=== PATIENT | female | born 1950 | race Caucasian/White ===

== ENCOUNTER 2023-01-03 12:58 | Inpatient (IN) | payer BC, OTHER ==
[2023-01-03 13:34] LABS: Absolute Lymphocytes (CBC) 0.4 K/uL (0.7-4.9); Hematocrit 48.2 % (36.0-45.0); Lymphocytes % 1.8 % (15.3-44.8); MCV 96.6 fL (80-100); MPV 9.3 fL (7.6-11.3); RBC Red Blood Cell Count 4.99 M/uL (3.86-4.86)
--- NOTE | 2023-01-03 13:36 | RAD REPORT ---
EXAM DESCRIPTION: RAD - Chest Single View - 01/03/2023 1:27 pm CLINICAL HISTORY: CHEST PAIN COMPARISON: No comparisons FINDINGS: Lines: None. Lungs: Increased lung markings in the lung bases, left greater than right. No consolidation. Pleural: No significant pleural effusions or pneumothorax. Cardiac: The heart size is within normal limits. Mediastinum: Within normal limits. Bones: No acute fractures. Other: None IMPRESSION: Coarsened interstitial lung markings in the bases could reflect mild infection or inflam mation.
[2023-01-03 13:37] LABS: Protime INR 1.08
[2023-01-03] MEDS ORDERED: MORPHINE 4 MG/ML SYR ONE ×2 (13:37→16:58)
[2023-01-03] MEDS ORDERED: ONDANSETRON 4 MG/2 ML VIAL ONE ×2 (13:37→16:58)
[2023-01-03 13:52] LABS: Albumin 4.3 g/dL (3.4-5.0); Bilirubin Direct 0.2 mg/dL (0-0.2); Bilirubin Total 0.6 mg/dL (0.2-1.0); Magnesium 1.8 mg/dL (1.6-2.4); Potassium 3.6 mmol/L (3.5-5.1); Protein, Total 7.8 g/dL (6.4-8.2); Troponin High Sensitivity 3.9 pg/mL (<58.9)
[2023-01-03 14:21] LABS: SARS-COV-2 RT PCR NEGATIVE (NEGATIVE)
[2023-01-03 14:22] LABS: Blood Morphology Comment NOTED (NOT SEEN); Platelet Estimate ADEQ; Stomatocytes 1+
--- NOTE | 2023-01-03 14:30 | RAD REPORT ---
EXAM DESCRIPTION: CTAngio Aorta For Dissection - 01/03/2023 2:17 pm CLINICAL HISTORY: chest pain, thoracic and lumbar back pain COMPARISON: No comparisons TECHNIQUE: CTA of the chest, abdomen, and pelvis was performed. MIPs of the aorta were created. All CT scans are performed using dose optimization technique as appropriate and may include automated exposure control or mA/KV adjustment according to patient size. FINDINGS: Thorax: Chest Wall: No abnormal mass Lungs: Emphysema. Nodularity and bronchiectasis present in the lingula. Pleura: No effusions or pneumothorax. Benita/Mediastinum: No lymphadenopathy. Aorta/Pulmonary Arteries: Unremarkable Heart: Normal size. Abdomen/Pelvis: Liver: No acute abnormality or suspicious lesions. Biliary: No biliary ductal dilatation. Stomach: No significant focal abnormality. Duodenum: No significant focal abnormality. Pancreas: No significant abnormality. Spleen: No significant abnormality. Adrenal: No suspicious lesions. Kidney/ureter: No hydronephrosis. No renal calculi. Retroperitoneum: No retroperitoneal adenopathy. Vascular: No aneurysm. Atherosclerosis. Bowel: No significant focal abnormality. Peritoneum: No ascites or free air. Bladder: Grossly unremarkable. Reproductive: No adnexal masses. Bones: No acute fracture. Multilevel degenerative changes are present in the spine. Other: n/a IMPRESSION: No aortic aneurysm, aortic dissection, or pulmonary embolus. Bronchiectasis in nodularity in the lingula likely secondary to a chronic or indolent infectious proc ess such as mycobacterial avium complex. Background of emphysema.
[2023-01-03] MEDS ORDERED: METHYLPREDNISOLONE 125 MG INJ ONE (16:00)
[2023-01-03] MEDS ORDERED: AZITHROMYCIN 250 MG TAB ONE (16:00)
[2023-01-03] MEDS ORDERED: LEVALBUTEROL 1.25 MG/3 ML NEB ONE (16:01)
--- NOTE | 2023-01-03 16:13 | ER ---
Nurse's Notes [facility] Name: Carmenza Saldivar Age: 72 yrs Sex: Female : 1950 Arrival Date: 01/03/2023 Time: 13:04 Bed 14 Private MD: Diagnosis: COPD/ Chronic obstructive pulmonary disease with (acute) exacerbation;Pneumonia;Chest Pain Presentation: 01/03 13:04 Chief complaint: Patient states: woke up with chest pain 1 hour ago. Coronavirus ss screen: Client denies travel out of the [place] in the last 14 days. Ebola Screen: Patient denies exposure to infectious person. Patient denies travel to an Ebola-affected area in the 21 days before illness onset. Initial Sepsis Screen: Does the patient meet any 2 criteria? No. Patient's initial sepsis screen is negative. Does the patient have a suspected source of infection? No. Patient's initial sepsis screen is negative. Risk Assessment: Do you want to hurt yourself or someone else? Patient reports no desire to harm self or others. Onset of symptoms was January 03, 2023. 13:04 Method Of Arrival: Wheelchair ss 13:04 Acuity: ROBIN 2 ss Triage Assessment: 19:35 General: Appears in no apparent distress. Behavior is appropriate for age. Pain: Denies ke1 pain. Respiratory: Respiratory effort is even, unlabored, on breathing tx at this time. Historical: - Allergies: 13:42 No Known Allergies; db - PMHx: 13:43 scoliosis; sciatica; db - Immunization history:: Adult Immunizations unknown. - Social history:: Smoking status: Patient denies any tobacco usage or history of. Patient uses street drugs, marijuana. Screenin:25 [facility] ED Fall Risk Assessment (Adult) History of falling in the last 3 months, db including since admission No falls in past 3 months (0 pts) Confusion or Disorientation No (0 pts) Intoxicated or Sedated No (0 pts) Impaired Gait No (0 pts) Mobility Assist Device Used No (0 pt) Altered Elimination No (0 pt) Score/Fall Risk Level 0 - 2 = Low Risk Oriented to surroundings, Maintained a safe environment. Abuse screen: Denies threats or abuse. Denies injuries from another. Nutritional screening: No deficits noted. Tuberculosis screening: No symptoms or risk factors identified. Assessment: 13:24 Reassessment: Patient and/or family updated on plan of care and expected duration. Pain db level reassessed. chest pain and SOB started prior to arrival. Pain: Complains of pain in chest Pain does not radiate. Pain began suddenly. Cardiovascular: No deficits noted. Capillary refill < 3 seconds. Respiratory: Airway is patent Respiratory effort is even, labored, Respiratory pattern is regular, symmetrical, Parent/caregiver reports the patient having shortness of breath. 14:09 Reassessment: patient in CT. db 15:00 Reassessment: Patient and/or family updated on plan of care and expected duration. Pain db level reassessed. Patient is alert, oriented x 3, equal unlabored respirations, skin warm/dry/pink. 16:00 Reassessment: Patient and/or family updated on plan of care and expected duration. Pain db level reassessed. Patient is alert, oriented x 3, equal unlabored respirations, skin warm/dry/pink. 17:04 Reassessment: Patient appears in no apparent distress at this time. Patient and/or db family updated on plan of care and expected duration. Pain level reassessed. Patient is alert, oriented x 3, equal unlabored respirations, skin warm/dry/pink. 18:05 Reassessment: Patient appears in no apparent distress at this time. Patient and/or db family updated on plan of care and expected duration. Pain level reassessed. Patient is alert, oriented x 3, equal unlabored respirations, skin warm/dry/pink. Patient states feeling better. Vital Signs: 13:04 BP 132 / 80; Pulse 114; Resp 24; Temp 99.3(O); Pulse Ox 87% on R/A; Weight 49.9 kg; ss Height 5 ft. 3 in. (160.02 cm); Pain 10/10; 15:00 BP 133 / 81; Pulse 102; Resp 18; Pulse Ox 93% on 2 lpm NC; db 16:00 BP 105 / 66; Pulse 94; Resp 18; Pulse Ox 88% on 2 lpm NC; db 16:30 BP 118 / 60; Pulse 101; Resp 16; Pulse Ox 88% on 2 lpm NC; db 19:32 BP 104 / 67; Pulse 88; Resp 20; Temp 99(O); Pulse Ox 93% on 2 lpm NC; ke1 13:04 Body Mass Index 19.49 (49.90 kg, 160.02 cm) ss 13:04 Pt reports that her RA O2 saturation is typically i"in the 80's" ED Course: 13:04 Patient arrived in ED. dov 13:11 Colten Orantes PA is PHCP. jmm 13:11 Nicolas Tyson MD is Attending Physician. jmm 13:15 Inserted saline lock: 20 gauge in right antecubital area, using aseptic technique. db Blood collected. 13:23 Nicole Sanchez, RN is Primary Nurse. db 13:23 Triage completed. ss 13:29 XRAY Chest (1 view) In Process Unspecified. EDMS 13:44 Oxygen administration via nasal cannula \\T\\ 2L/min. db 13:44 Patient has correct armband on for positive identification. Placed in gown. Bed in low db position. Call light in reach. Side rails up X 1. Client placed on continuous cardiac and pulse oximetry monitoring. NIBP monitoring applied. Warm blanket given. 14:19 CT Aorta for Dissection In Process Unspecified. EDMS 15:00 First set of blood cultures drawn by me. db 15:15 Second set of blood cultures drawn by me. db 16:12 Mehnaz Natarajan MD is Hospitalizing Provider. [facility] 19:12 Primary Nurse role handed off by Nicole Sanchez, ANAI mw2 19:15 Nicole Sanchez, RN is Primary Nurse. db 19:15 Report given to Nicolle. db 19:32 Leland Joy RN is Primary Nurse. ke1 20:22 No provider procedures requiring assistance completed. Patient admitted, IV remains in ke1 place. Administered Medications: 13:38 Drug: morphine 4 mg Route: IVP; Infused Over: 4 mins; Site: right antecubital; db 15:13 Follow up: Response: No adverse reaction db 13:38 Drug: Zofran (Ondansetron) 4 mg Route: IVP; Site: right antecubital; db 15:13 Follow up: Response: No adverse reaction db 16:06 Drug: SOLU-Medrol (methylPrednisoLONE) 125 mg Route: IVP; Site: right antecubital; db 17:04 Follow up: Response: No adverse reaction db 16:06 Drug: Zithromax (azithromycin) 500 mg Route: PO; db 17:04 Follow up: Response: No adverse reaction db 16:06 Drug: Xopenex (levalbuterol) (3) 1.25 mg Route: Inhalation; db 17:04 Follow up: Response: No adverse reaction db 17:03 Drug: Zofran (Ondansetron) 4 mg Route: IVP; Site: right antecubital; db 18:47 Follow up: Response: No adverse reaction db 17:03 Drug: morphine 4 mg Route: IVP; Infused Over: 4 mins; Site: right antecubital; db 18:47 Follow up: Response: No adverse reaction db 17:04 Drug: Aspirin Chewable Tablet 324 mg Route: PO; db 18:47 Follow up: Response: No adverse reaction db Medication: 20:23 VIS not applicable for this client. ke1 Outcome: 16:12 Decision to Hospitalize by Provider. vivien 20:22 Admitted to Med/surg accompanied by nurse. ke1 20:22 Condition: good 20:22 Instructed on the need for admit. 20:23 Patient left the ED. ke1 Signatures: Dispatcher [employer] EDMS Nicolas Tyson MD MD cha Mickail, Joel, PA PA Sierra Sanchez, Consuelo Kessler RN 2 Leland Joy RN RN ke1 Nicole Sanchez, ANAI RN db
--- NOTE | 2023-01-03 16:13 | EDPHYS ---
Physician Documentation [facility] Name: Carmenza Saldivar Age: 72 yrs Sex: Female : 1950 Arrival Date: 01/03/2023 Time: 13:04 Bed 14 Private MD: DANIEL Physician Nicolas Tyson HPI: 01/03 13:11 This 72 yrs old Female presents to ER via Wheelchair with complaints of Chest Pain. m 13:11 The patient or guardian reports chest pain that is located primarily in the substernal [facility] area. Onset: gradually, this morning. The pain radiates to Associated signs and symptoms: Pertinent positives: shortness of breath. The chest pain is described as aching. Duration: The patient or guardian reports multiple episodes, that are intermittent, that wax and wane. Modifying factors: The symptoms are alleviated by nothing. the symptoms are aggravated by nothing. The patient has not experienced similar symptoms in the past. Historical: - Allergies: 13:42 No Known Allergies; db - PMHx: 13:43 scoliosis; sciatica; db - Immunization history:: Adult Immunizations unknown. - Social history:: Smoking status: Patient denies any tobacco usage or history of. Patient uses street drugs, marijuana. ROS: 13:11 Constitutional: Negative for fever, chills, and weight loss, Respiratory: Negative for jmm shortness of breath, cough, wheezing, and pleuritic chest pain. 13:11 Cardiovascular: Positive for chest pain. 13:11 Respiratory: Positive for shortness of breath. 13:11 All other systems are negative. Exam: 13:11 Constitutional: This is a well developed, well nourished patient who is awake, alert, jmm and in no acute distress. Head/Face: atraumatic. Eyes: EOMI, no conjunctival erythema appreciated ENT: Moist Mucus Membranes Neck: Trachea midline, Supple Chest/axilla: Normal chest wall appearance and motion. Cardiovascular: Regular rate and rhythm. No edema appreciated Respiratory: Normal respirations, no respiratory distress appreciated Abdomen/GI: Non distended Back: Normal ROM Skin: General appearance color normal MS/ Extremity: Moves all extremities, no obvious deformities appreciated, no edema noted to the lower extremities Neuro: Awake and alert Psych: Behavior is normal, Mood is normal, Patient is cooperative and pleasant Vital Signs: 13:04 BP 132 / 80; Pulse 114; Resp 24; Temp 99.3(O); Pulse Ox 87% on R/A; Weight 49.9 kg; ss Height 5 ft. 3 in. (160.02 cm); Pain 10/10; 15:00 BP 133 / 81; Pulse 102; Resp 18; Pulse Ox 93% on 2 lpm NC; db 16:00 BP 105 / 66; Pulse 94; Resp 18; Pulse Ox 88% on 2 lpm NC; db 16:30 BP 118 / 60; Pulse 101; Resp 16; Pulse Ox 88% on 2 lpm NC; db 19:32 BP 104 / 67; Pulse 88; Resp 20; Temp 99(O); Pulse Ox 93% on 2 lpm NC; ke1 13:04 Body Mass Index 19.49 (49.90 kg, 160.02 cm) ss 13:04 Pt reports that her RA O2 saturation is typically i"in the 80's" ss MDM: 13:15 Patient medically screened. [facility] 16:10 The patient was given aspirin in the Emergency Department. m 16:11 Data reviewed: vital signs, nurses notes. Management of patient was discussed with the jmm following: Hospitalist: Dr. Natarajan. I considered the following discharge prescriptions or medication management in the emergency department Medications were administered in the Emergency Department. See MAR. Independent interpretation of the following test(s) in the Emergency Department X-Ray: My interpretation is no pneumothorax. Counseling: I had a detailed discussion with the patient and/or guardian regarding: the historical points, exam findings, and any diagnostic results supporting the discharge/admit diagnosis, lab results, radiology results, the need for further work-up and treatment in the hospital. ED course: Pain relieved in the ED. . 01/03 13:11 Order name: Basic Metabolic Panel; Complete Time: 13:59 [facility] 01/03 13:11 Order name: CBC with Diff; Complete Time: 14:27 [facility] 01/03 13:11 Order name: LFT's; Complete Time: 13:59 [facility] 01/03 13:11 Order name: Magnesium; Complete Time: 13:59 [facility] 01/03 13:11 Order name: NT PRO-BNP; Complete Time: 13:59 [facility] 01/03 13:11 Order name: PT-INR; Complete Time: 13:37 [facility] 01/03 13:11 Order name: Troponin HS; Complete Time: 13:59 [facility] 01/03 13:21 Order name: COVID-19/FLU A+B; Complete Time: 14:27 [facility] 01/03 13:45 Order name: Manual Differential; Complete Time: 14:27 [facility] 01/03 14:07 Order name: Lactate w/ 2H reflex if indic.; Complete Time: 15:50 [facility] 01/03 14:07 Order name: Blood Culture Adult (2) [facility] 01/03 17:10 Order name: CBC with Automated Diff [facility] 01/03 17:10 Order name: CBC with Automated Diff [facility] 01/03 13:11 Order name: XRAY Chest (1 view); Complete Time: 13:37 [facility] 01/03 13:15 Order name: CT Aorta for Dissection; Complete Time: 14:32 [facility] 01/03 17:10 Order name: Comprehensive Metabolic Panel [facility] 01/03 17:10 Order name: Comprehensive Metabolic Panel [facility] 01/03 17:10 Order name: Protime (+INR) [facility] 01/03 17:10 Order name: Protime (+INR) [facility] 01/03 17:10 Order name: PTT, Activated Partial Thromb [facility] 01/03 17:10 Order name: PTT, Activated Partial Thromb [facility] 01/03 17:10 Order name: Troponin High Sensitivity [facility] 01/03 17:10 Order name: Troponin High Sensitivity [facility] 01/03 13:11 Order name: EKG; Complete Time: 13:12 [facility] 01/03 13:11 Order name: Cardiac monitoring; Complete Time: 13:28 [facility] 01/03 13:11 Order name: EKG - Nurse/Tech; Complete Time: 13:28 [facility] 01/03 13:11 Order name: IV Saline Lock; Complete Time: 13:28 [facility] 01/03 13:11 Order name: Labs collected and sent; Complete Time: 13:28 [facility] 01/03 13:11 Order name: O2 Per Protocol; Complete Time: 13:28 [facility] 01/03 13:11 Order name: O2 Sat Monitoring; Complete Time: 13:28 [facility] 01/03 17:10 Order name: CONS Physician Consult [facility] 01/03 17:10 Order name: Heart Healthy EDLA Administered Medications: 13:38 Drug: morphine 4 mg Route: IVP; Infused Over: 4 mins; Site: right antecubital; db 15:13 Follow up: Response: No adverse reaction db 13:38 Drug: Zofran (Ondansetron) 4 mg Route: IVP; Site: right antecubital; db 15:13 Follow up: Response: No adverse reaction db 16:06 Drug: SOLU-Medrol (methylPrednisoLONE) 125 mg Route: IVP; Site: right antecubital; db 17:04 Follow up: Response: No adverse reaction db 16:06 Drug: Zithromax (azithromycin) 500 mg Route: PO; db 17:04 Follow up: Response: No adverse reaction db 16:06 Drug: Xopenex (levalbuterol) (3) 1.25 mg Route: Inhalation; db 17:04 Follow up: Response: No adverse reaction db 17:03 Drug: Zofran (Ondansetron) 4 mg Route: IVP; Site: right antecubital; db 18:47 Follow up: Response: No adverse reaction db 17:03 Drug: morphine 4 mg Route: IVP; Infused Over: 4 mins; Site: right antecubital; db 18:47 Follow up: Response: No adverse reaction db 17:04 Drug: Aspirin Chewable Tablet 324 mg Route: PO; db 18:47 Follow up: Response: No adverse reaction db Disposition Summary: 01/03/23 16:12 Hospitalization Ordered Hospitalization Status: Observation [facility] Provider: Mehnaz Natarajan Location: Telemetry/MedSurg (observation) [facility] Condition: Stable [facility] Problem: new [facility] Symptoms: are unchanged [facility] Bed/Room Type: Standard [facility] Room Assignment: 217(01/03/23 18:54) dw Diagnosis - COPD/ Chronic obstructive pulmonary disease with (acute) exacerbation jmm - Pneumonia jmm - Chest Pain jm Forms: - Medication Reconciliation Form jmm - SBAR form [facility] Signatures: Dispatcher [employer] Pascale Landa RN RN dw Mickail, Joel, PA PA jmm Botello, Elizabeth eb Benton, Danielle, RN RN db Corrections: (The following items were deleted from the chart) 14:39 13:12 SARS-COV-2 Antigen Rapid+I.LAB.BRZ ordered. KAREN JONES 18:33 16:12 jmm eb 18:54 18:33 206 eb dw
[2023-01-03] MEDS ORDERED: ASPIRIN 81 MG CHEWABLE TABLET ONE (16:58)
[2023-01-03] MEDS ORDERED: ONDANSETRON 4 MG/2 ML VIAL IV PRN (17:04)
[2023-01-03] MEDS ORDERED: ACETAMINOPHEN 500 MG TAB PO PRN (17:04)
[2023-01-03] MEDS: METHYLPREDNISOLONE 40 MG INJ IV SCH (18:00)
[2023-01-03] MEDS ORDERED: ALBUTEROL 2.5 MG/3 ML NEB SOL ONE (19:29)
[2023-01-03] MEDS ORDERED: IPRATROPIUM BROM 0.5MG/2.5ML ONE (19:29)
[2023-01-03] MEDS: ALBUTEROL 2.5 MG/3 ML NEB SOL NEB SCH (19:30)
[2023-01-03] MEDS: IPRATROPIUM BROM 0.5MG/2.5ML NEB SCH (19:30)
[2023-01-03 21:34] VITALS: BMI 19.3
--- NOTE | 2023-01-04 00:38 | P.HP ---
Certification for Inpatient Patient admitted to: Inpatient With expected LOS: >2 Midnights Patient will require the following post-hospital care: None Practitioner: I am a practitioner with admitting privileges, knowledge of patient current condition, hospital course, and medical plan of care. Services: Services provided to patient in accordance with Admission requirements found in Title 42 Section 412.3 of the Code of Federal Regulations Patient History Date of Service: 01/03/23 Reason for admission: Shortness of breath History of Present Illness: Patient is a 72-year-old female who comes into the hospital with difficulty breathing. Patient history of COPD and was found have bronchiectasis. Patient was started on IV steroids and nebulizer treatments. Patient has a longstanding history of COPD. She has been treated as an outpatient by her data warehouse manager in [place]. She has also had cardiac workup done about 5 years ago which was unremarkable. She did notice some chest pain but her troponins have been negative. At this time, she will be admitted to the hospital and will continue with IV steroids and antibiotics and will get cardiac workup. Patient will be admitted to the hospital for further workup. Allergies No Known Allergies Allergy (Verified 10/03/15 17:13) Home Medications: ALPRAZolam [Xanax*] 0.25 mg PO TID PRN 10/03/15 Gabapentin [Neurontin*] 400 mg PO TIDP PRN 01/03/23 Umeclidinium Brm/Vilanterol Tr [Anoro Ellipta 62.5-25 Mcg INH] 2 puff IH DAILY 01/03/23 methocarbamoL [Robaxin*] 500 mg PO TIDP PRN 01/03/23 - Past Medical/Surgical History Has patient received pneumonia vaccine in the past: No Diabetic: No -: Sciatica -: Scoliosis -: Hysterectomy - Family History Father Medical History: Lung disease, Blood disorders, Other (see notes) Notes: PAD Mother Medical History: Lung disease Brother Medical History: Lung disease Notes: COPD Sister Medical History: Cancer Notes: Stomach - Social History Smoking Status: Former smoker Alcohol use: No CD- Drugs: Yes Caffeine use: Yes Place of Residence: Home Review of Systems 10-point ROS is otherwise unremarkable Physical Examination - Vital Signs Temperature: 97.7 F Blood Pressure: 115/61 Pulse: 73 Respirations: 15 Pulse Ox (%): 94 - Physical Exam General: Alert, In no apparent distress, Oriented x3 HEENT: Atraumatic, PERRLA, Mucous membr. moist/pink, EOMI, Sclerae nonicteric Neck: Supple, 2+ carotid pulse no bruit, No LAD, Without JVD or thyroid abnormality Respiratory: Diminished, Expiratory wheezes Cardiovascular: Regular rate/rhythm, Normal S1 S2 Gastrointestinal: Normal bowel sounds, Soft and benign, Non-distended, No tenderness Musculoskeletal: No clubbing, No swelling, No tenderness Integumentary: No rashes Neurological: Normal gait, Normal speech, Normal strength at 5/5 x4 extr, Normal tone, Cranial nerves 3-12 intact, Normal affect Lymphatics: No axilla or inguinal lymphadenopathy - Studies Laboratory Data (last 24 hrs) 01/03/23 13:18: PT 11.9, INR 1.08 01/03/23 13:18: WBC 19.80 H, Hgb 16.4 H, Hct 48.2 H, Plt Count 244 01/03/23 13:18: Sodium 137, Potassium 3.6, BUN 16, Creatinine 0.69, Glucose 143 H, Magnesium 1.8, Total Bilirubin 0.6, AST 16, ALT 20, Alkaline Phosphatase 73 Assessment & Plan - Problems (Diagnosis) (1) COPD with acute exacerbation Current Visit: Yes Status: Acute (2) Bronchiectasis Current Visit: Yes Status: Acute (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 -Strict blood pressure and blood sugar control -Serial troponins and EKG along with echocardiogram and possible stress test -repeat chest x-ray -pulmonary consultation Discharge Plan: Home Plan to discharge in: Greater than 2 days - Advance Directives Does patient have a Living Will: No Does patient have a Durable POA for Healthcare: No - Code Status/Comfort Care Code Status Assessed: Yes Code Status: Full Code Critical Care: No Time Spent Managing PTS Care (In Minutes): 45
[2023-01-04] MEDS: ALBUTEROL 2.5 MG/3 ML NEB SOL NEB SCH ×4 (01:25→19:05)
[2023-01-04] MEDS: IPRATROPIUM BROM 0.5MG/2.5ML NEB SCH ×4 (01:25→19:05)
[2023-01-04 03:52] LABS: Absolute Lymphocytes (CBC) 0.4 K/uL (0.7-4.9); Lymphocytes % 2.4 % (15.3-44.8); MCV 97.3 fL (80-100); MPV 9.3 fL (7.6-11.3); RBC Red Blood Cell Count 4.42 M/uL (3.86-4.86)
[2023-01-04 03:56] LABS: Protime INR 1.09
[2023-01-04 04:08] LABS: Albumin 3.5 g/dL (3.4-5.0); Bilirubin Total 0.4 mg/dL (0.2-1.0); Potassium 3.8 mmol/L (3.5-5.1); Protein, Total 7.2 g/dL (6.4-8.2); Troponin High Sensitivity 3.6 pg/mL (<58.9)
[2023-01-04] MEDS: METHYLPREDNISOLONE 40 MG INJ IV SCH ×2 (05:49)
[2023-01-04] MEDS ORDERED: INFLUENZA VACCINE (for 6+ mo) 0.5 ML DOSE IMVAC ONE (08:00)
[2023-01-04] MEDS ORDERED: PNEUMOCOCCAL VACCINE 0.5 ML IMVAC ONE (08:00)
[2023-01-04] MEDS: MORPHINE 2 MG/ML SYR IV PRN (10:00)
[2023-01-04] MEDS ORDERED: GABAPENTIN 400 MG CAP PO PRN (10:31)
--- NOTE | 2023-01-04 10:32 | P.CNS ---
Date of Consult: 01/04/23 Chief Complaint: Left-sided chest pain History of Present Illness: Patient is 72 years of age pleasant lady is complaining of sudden onset of left- sided chest pain radiating to her neck describes as is pleuritic and it appeared in the hospital with a diagnosis of left-sided pneumonia he has a history of scoliosis sees food service assistant in [place] also seen by a avionics systems repairer using Anoro oxygen as needed with smoking 12 years ago had some fever and a cough still having some chest pain Allergies No Known Allergies Allergy (Verified 10/03/15 17:13) Home Medications: ALPRAZolam [Xanax*] 0.25 mg PO TID PRN 10/03/15 Gabapentin [Neurontin*] 400 mg PO TIDP PRN 01/03/23 Umeclidinium Brm/Vilanterol Tr [Anoro Ellipta 62.5-25 Mcg INH] 2 puff IH DAILY 01/03/23 methocarbamoL [Robaxin*] 500 mg PO TIDP PRN 01/03/23 - Past Medical/Surgical History Diabetic: No -: Sciatica -: Scoliosis -: COPD -: Hysterectomy - Family History Father Medical History: Lung disease, Blood disorders, Other (see notes) Notes: PAD Mother Medical History: Lung disease Brother Medical History: Lung disease Notes: COPD Sister Medical History: Cancer Notes: Stomach - Social History Alcohol use: No CD- Drugs: Yes Caffeine use: Yes Place of Residence: Home Review of Systems 10-point ROS is otherwise unremarkable General: Weakness Respiratory: Shortness of Breath Cardiovascular: Chest Pain Physical Examination Temp Pulse Resp BP Pulse Ox 98.4 F 78 16 123/62 93 01/04/23 08:00 01/04/23 08:00 01/04/23 10:00 01/04/23 08:00 01/04/23 10:00 General: Alert, Oriented x3 HEENT: Atraumatic Respiratory: Clear to auscultation bilaterally, Diminished, Friction rub Cardiovascular: Regular rate/rhythm, Normal S1 S2 Gastrointestinal: Normal bowel sounds, Soft and benign Laboratory Data (last 24 hrs) 01/03/23 13:18: PT 11.9, INR 1.08 01/03/23 13:18: WBC 19.80 H, Hgb 16.4 H, Hct 48.2 H, Plt Count 244 01/03/23 13:18: Sodium 137, Potassium 3.6, BUN 16, Creatinine 0.69, Glucose 143 H, Magnesium 1.8, Total Bilirubin 0.6, AST 16, ALT 20, Alkaline Phosphatase 73 - Problems (1) Pneumonia Current Visit: Yes Status: Acute Plan: Patient is 72 years of age admitted with left-sided pleuritic chest pain she has a left lower lobe infiltrate elevated white count history of COPD patient is on Anoro oxygen as needed chemistries reviewed white count is mildly elevated vital signs stable resume home medications add p.o. levofloxacin patient is mildly hypoxic possible discharge a.m. Qualifiers: Lung location: lower lobe of lung (2) Pulmonary Mycobacterium avium complex (MAC) infection Current Visit: Yes Status: Acute Plan: History of Mycobacterium AVM infection patient does have a left lower lobe infiltrate doubt MAC sputum cultures have been ordered
[2023-01-04] MEDS: levoFLOXacin 750 MG TAB PO SCH (10:43)
[2023-01-04] MEDS: predniSONE 20 MG TAB PO SCH (21:03)
[2023-01-04] MEDS: ALPRAZOLAM 0.25 MG TABLET PO PRN (21:03)
[2023-01-05] MEDS: IPRATROPIUM BROM 0.5MG/2.5ML NEB SCH ×5 (02:00→20:05)
[2023-01-05] MEDS: ALBUTEROL 2.5 MG/3 ML NEB SOL NEB SCH ×5 (02:00→20:05)
[2023-01-05 06:56] LABS: Absolute Lymphocytes (CBC) 0.4 K/uL (0.7-4.9); Hematocrit 42.3 % (36.0-45.0); Lymphocytes % 2.2 % (15.3-44.8); MCV 97.7 fL (80-100); RBC Red Blood Cell Count 4.33 M/uL (3.86-4.86)
[2023-01-05 07:10] LABS: Potassium 4.8 mmol/L (3.5-5.1)
[2023-01-05] MEDS: predniSONE 20 MG TAB PO SCH ×2 (08:44→20:55)
[2023-01-05] MEDS: levoFLOXacin 750 MG TAB PO SCH (08:44)
[2023-01-05] MEDS: HOME MED 1 EA UNK (Umeclidinium Brm/Vilanterol Tr [Anoro Ellipta 62.5-25 Mcg Inh] Blst.W.D IH SCH (08:45)
--- NOTE | 2023-01-05 09:01 | P.CNS ---
Date of Consult: 01/05/23 Chief Complaint: Left-sided chest pain History of Present Illness: Patient is a 72-year-old female with medical history of COPD and Scoliosis who comes into the hospital with difficulty breathing and was found have bronchiectasis. Patient was started on IV steroids and nebulizer treatments. Per patient, she is a former smoker and quit for 12 years ID has been consulted for IV antibiotics recommendation and management for Pulmonary Mycobacterium avium complex (MAC) infection Allergies No Known Allergies Allergy (Verified 10/03/15 17:13) Home Medications: ALPRAZolam [Xanax*] 0.25 mg PO TID PRN 10/03/15 Gabapentin [Neurontin*] 400 mg PO TIDP PRN 01/03/23 Umeclidinium Brm/Vilanterol Tr [Anoro Ellipta 62.5-25 Mcg INH] 2 puff IH DAILY 01/03/23 methocarbamoL [Robaxin*] 500 mg PO TIDP PRN 01/03/23 - Past Medical/Surgical History Diabetic: No -: Sciatica -: Scoliosis -: COPD -: Hysterectomy - Family History Father Medical History: Lung disease, Blood disorders, Other (see notes) Notes: PAD Mother Medical History: Lung disease Brother Medical History: Lung disease Notes: COPD Sister Medical History: Cancer Notes: Stomach - Social History Alcohol use: No CD- Drugs: Yes Caffeine use: Yes Place of Residence: Home Review of Systems 10-point ROS is otherwise unremarkable Respiratory: Shortness of Breath Cardiovascular: Chest Pain (left side) Physical Examination Temp Pulse Resp BP Pulse Ox 98.0 F 85 16 148/70 H 88 L 01/05/23 08:00 01/05/23 08:00 01/05/23 08:00 01/05/23 08:00 01/05/23 08:00 General: Alert, In no apparent distress, Oriented x3 Respiratory: Diminished, Other (2 L NC support) Cardiovascular: No edema, Normal S1 S2 Gastrointestinal: Normal bowel sounds Musculoskeletal: No swelling, No tenderness Integumentary: No rashes, No breakdown Neurological: Normal speech, Normal tone, Normal affect Acetaminophen (Acetaminophen 500 Mg Tab) 500 mg PO Q6H PRN PRN Reason: pain/fever Albuterol Sulfate (Albuterol 2.5 Mg/3 Ml Neb Fely) 2.5 mg NEB Q2POYNA CHANDAN Last Admin: 01/05/23 08:00 Dose: 2.5 mg Alprazolam (Alprazolam 0.25 Mg Tablet) 0.25 mg PO TID PRN PRN Reason: ANXIETY Last Admin: 01/04/23 21:03 Dose: 0.25 mg Gabapentin (Gabapentin 400 Mg Cap) 400 mg PO TIDP PRN PRN Reason: Pain scale 5-7 (Moderate) Home Med (Umeclidinium Brm/Vilanterol Tr [Anoro Ellipta 62.5-25 Mcg Inh]) 2 puff IH DAILY [facility] Last Admin: 01/05/23 08:45 Dose: 2 puff Ipratropium [place] (Ipratropium Brom 0.5mg/2.5ml) 0.5 mg NEB [id number] [facility] Last Admin: 01/05/23 08:00 Dose: 0.5 mg Levofloxacin (Levofloxacin 750 Mg Tab) 750 mg PO DAILY [facility]; Protocol Last Admin: 01/05/23 08:44 Dose: 750 mg Methocarbamol (Methocarbamol 500 Mg Tab) 500 mg PO TIDP PRN PRN Reason: Pain scale 8-10 (Severe) Morphine Sulfate (Morphine 2 Mg/Ml Syr) 2 mg IV Q4H PRN PRN Reason: Pain scale 5-7 (Moderate) Last Admin: 01/04/23 10:00 Dose: 2 mg Ondansetron HCl (Ondansetron 4 Mg/2 Ml Vial) 4 mg IV Q4H PRN PRN Reason: NAUSEA / VOMITING Prednisone (Prednisone 20 Mg Tab) 20 mg PO BID [facility] Last Admin: 01/05/23 08:44 Dose: 20 mg Sodium Chloride (Flush Normal Saline 10 Ml) 10 ml IV BID [facility] Last Admin: 01/05/23 08:45 Dose: 10 ml Microbiology 01/03/23 15:15 Blood - Blood Aerobic Blood Culture - Preliminary No growth in 24 hours. 01/03/23 15:15 Blood - Blood Anaerobic Blood Culture - Preliminary No growth in 24 hours. 01/03/23 15:00 Blood - Blood Aerobic Blood Culture - Preliminary No growth in 24 hours. 01/03/23 15:00 Blood - Blood Anaerobic Blood Culture - Preliminary No growth in 24 hours. Imagings Data: CTAngio Aorta For Dissection - 01/03/2023 FINDINGS: Thorax: Chest Wall: No abnormal mass Lungs: Emphysema. Nodularity and bronchiectasis present in the lingula. Pleura: No effusions or pneumothorax. Benita/Mediastinum: No lymphadenopathy. Aorta/Pulmonary Arteries: Unremarkable Heart: Normal size. Abdomen/Pelvis: Liver: No acute abnormality or suspicious lesions. Biliary: No biliary ductal dilatation. Stomach: No significant focal abnormality. Duodenum: No significant focal abnormality. Pancreas: No significant abnormality. Spleen: No significant abnormality. Adrenal: No suspicious lesions. Kidney/ureter: No hydronephrosis. No renal calculi. Retroperitoneum: No retroperitoneal adenopathy. Vascular: No aneurysm. Atherosclerosis. Bowel: No significant focal abnormality. Peritoneum: No ascites or free air. Bladder: Grossly unremarkable. Reproductive: No adnexal masses. Bones: No acute fracture. Multilevel degenerative changes are present in the spine. Other: n/a IMPRESSION: No aortic aneurysm, aortic dissection, or pulmonary embolus. Bronchiectasis in nodularity in the lingula likely secondary to a chronic or indolent infectious process such as mycobacterial avium complex. Background of emphysema. RAD - Chest Single View - 01/03/2023 FINDINGS: Lines: None. Lungs: Increased lung markings in the lung bases, left greater than right. No consolidation. Pleural: No significant pleural effusions or pneumothorax. Cardiac: The heart size is within normal limits. Mediastinum: Within normal limits. Bones: No acute fractures. Other: None IMPRESSION: Coarsened interstitial lung markings in the bases could reflect mild infection or inflammation. - Problems (1) Pulmonary Mycobacterium avium complex (MAC) infection Current Visit: Yes Status: Acute Plan: Questionable due to patient has co-existing medical conditions as scoliosis, COPD, bronchiectasis, and heart issue Cultures: 01/05: Sputum: pending 01/03 BC x 2: Negative Antibiotics: Current on PO Levaquin (01/04- ) Recommendations: Continue PO Levaquin for total of 10 days ID will provide antibiotics drug of choice when sputum culture is available Pulmonary bronchoscopy if needed Conclusions/Impression: - COPD with acute exacerbation - Bronchiectasis - Pulmonary Mycobacterium avium complex (MAC) infection - Sciatica - Scoliosis - Hysterectomy ID will monitor the patient closely for signs of infection with fever and WBC trends Case has been discussed with Dr. Roman N Thank you Dr. Natarajan for consultation
--- NOTE | 2023-01-05 09:11 | P.PN ---
Subjective Date of Service: 01/04/23 Subjective: No new changes, No C/O voiced, Improving Review of Systems 10-point ROS is otherwise unremarkable Physical Examination - Vital Signs Temperature: 97.7 F Blood Pressure: 115/61 Pulse: 73 Respirations: 15 Pulse Ox (%): 94 - Physical Exam General: Alert, In no apparent distress HEENT: Atraumatic, PERRLA, EOMI Neck: Supple, JVD not distended Respiratory: Clear to auscultation bilaterally, Normal air movement Cardiovascular: Regular rate/rhythm, Normal S1 S2 Gastrointestinal: Normal bowel sounds, No tenderness Musculoskeletal: No tenderness Integumentary: No rashes Neurological: Normal speech, Normal tone, Normal affect Lymphatics: No axilla or inguinal lymphadenopathy - Studies Medications List Reviewed: Yes Assessment & Plan - Problems (Diagnosis) (1) COPD with acute exacerbation Current Visit: Yes Status: Acute (2) Bronchiectasis Current Visit: Yes Status: Acute (3) Pulmonary Mycobacterium avium complex (MAC) infection Current Visit: Yes Status: Acute (4) Chest pain, rule out acute myocardial infarction Current Visit: Yes Status: Acute - Plan continue with plan of care as mentioned below: -nebs, steroids, and antibiotics -O2 per protocol. -Strict blood pressure and blood sugar control -Serial troponins and EKG along with echocardiogram and possible stress test -repeat chest x-ray -pulmonary consultation - Advance Directives Does patient have a Living Will: No Does patient have a Durable POA for Healthcare: No - Code Status/Comfort Care Code Status: Full Code
--- NOTE | 2023-01-05 09:50 | P.PN ---
Subjective Date of Service: 01/05/23 Chief Complaint: Shortness of breath No acute events overnight. She reports that her breathing is unchanged compared to yesterday. She has been NPO past midnight in anticipation for a nuclear stress test this morning. She denies any chest pain, palpitations, or shortness of breath. Review of Systems 10-point ROS is otherwise unremarkable Respiratory: Shortness of Breath (chronic) Physical Examination - Vital Signs Temperature: 97.7 F Blood Pressure: 115/61 Pulse: 73 Respirations: 15 Pulse Ox (%): 94 - Physical Exam General: Alert, In no apparent distress, Oriented x3 HEENT: Atraumatic, EOMI, Sclerae nonicteric Neck: JVD not distended Respiratory: Diminished, Expiratory wheezes (faint), Rhonchi/gurgles Cardiovascular: No edema, Regular rate/rhythm, Normal S1 S2, No gallops, No rubs, No murmurs Gastrointestinal: Normal bowel sounds, Soft and benign, Non-distended, No tenderness, No rebound, No guarding Musculoskeletal: No clubbing Integumentary: No rashes Neurological: Normal speech, Normal affect - Studies Medications List Reviewed: Yes Assessment And Plan - Plan # Acute Hypoxic Respiratory Failure - likely secondary to Acute Chronic Obstructive Pulmonary Disease Exacerbation - Evaluation thus far: - Procalcitonin = pending - ABG = pending - Chest x-ray = "coarsened interstitial lung markings in the bases could reflect mild infection or inflammation." - CT chest = "no aortic aneurysm, aortic dissection, or pulmonary embolus. Bronchiectasis in nodularity in the lingula likely secondary to a chronic or indolent infectious process such as mycobacterial avium complex. Background of emphysema." - Management plan: - Consulted Pulmonary Medicine - recommendations appreciated - Steroids, bronchodilators per Pulm - Consulted Respiratory Therapy - Supplemental oxygen to maintain SpO2 > 92% - PRN benzonatate, guaifenesin - Encouraged incentive spirometry - Assess inhaler technique one improved from exacerbation # Sepsis likely secondary to Myocbacterium Avium Complex (MAC) Infection - POA # Bronchiectasis She met sepsis criteria based on HR > 90 bpm, RR > 20 breaths/min, and WBC > 12,000, and the suspected source is pulmonary. - Infectious Diseases consulted - recommendations appreciated - Sepsis order set was initiated - Initial Lactate was 1.0 - Blood cultures drawn before antibiotics were given - Broad spectrum antibiotics started: Levofloxacin - In regards to fluids: - 30 mL/kg of IV fluids was not administered given SBP > 90, MAP > 65, lactic acid < 4 # Atypical Chest Pain, concern for Angina - Evaluation thus far: - EKG: reportedly without STEMI criteria, trend - Serial troponin: 3.9 -> 3.6 - Transthoracic echocardiogram = pending - Nuclear stress test = pending - Management plan: - Consult Cardiology - recommendations appreciated - Start daily baby aspirin - If cardiac ischemia confirmed, plan to start beta-ratna, MARKUS- inhibitor/ARB, statin as tolerated # Sciatica - Continue gabapentin, methocarbamol James Arora M.D.
[2023-01-05 13:04] LABS: Arterial Blood Carboxyhemoglob 1.3 % (0-1.5); Blood Gas Oxyhemoglobin 89.6 % (94-97); Blood O2 Saturation 91.7 % (92-98.5)
[2023-01-05] MEDS: MORPHINE 2 MG/ML SYR IV PRN (13:32)
[2023-01-05] MEDS: ALPRAZOLAM 0.25 MG TABLET PO PRN (20:55)
[2023-01-05] MEDS: methocarbamoL 500 MG TAB PO PRN (21:06)
--- NOTE | 2023-01-06 00:48 | CON ---
Date of Consultation: 01/05/2023 Reason For Consultation: Chest pain. History Of Present Illness: This 72-year-old female with history of COPD presented to the emergency room with chest pain and shortness of breath. She does have history of COPD, was wheezing, started o n IV and nebulizers and did well. Chest pain is left sided and radiates to the left upper extremity. Past Medical History: COPD. Medications: Refer to reconciliation sheet for detailed list. Allergies: NO KNOWN DRUG ALLERGIES. Family History: No premature coronary artery disease or cancer. Social History: She is an active smoker. Does not drink or use any drugs. Review of Systems: All systems reviewed and they were negative except as mentioned in HPI. Physical Examination: Vital Signs: Reviewed. Head And Neck: Pupils are equal and reactive to light. Intact eye movements. No JVD. No cervical lymphadenopathy. Neck is supple. Thyroid is not enlarged. Lungs: Clear to auscultation bilaterally. No rhonchi, wheezing, or crackles. No accessory muscle u se. Heart: Regular rate and rhythm. No extra sounds. Abdomen: Soft, nontender. Bowel sounds positive. No organomegaly. No masses or hernia. No rigidi ty or rebound. Extremities: No edema, clubbing, or cyanosis. Intact pulses. Skin: No rash noted. Neurologic: Alert, awake, and oriented x3. No acute focal deficits appreciated. Investigations: Troponins are negative. BUN 23, creatinine 0.57, and hemoglobin was 13.9. Assessment/recommendation: 1.Chest pain. It is atypical, likely related to her chronic obstructive pulmonary disease exacerbat ion. She has risk factors. She will need a stress test, which can be done as an outpatient, but if the patient stayed in the hospital then plan for a stress test while inhouse. 2.Chronic obstructive pulmonary disease with exacerbation. She was counseled against smoking and co ntinue current management. SR/MODL Voice ID: [id number] Report ID: [id number]
[2023-01-06] MEDS: ALBUTEROL 2.5 MG/3 ML NEB SOL NEB SCH ×2 (01:00→08:00)
[2023-01-06] MEDS: IPRATROPIUM BROM 0.5MG/2.5ML NEB SCH ×2 (01:00→08:00)
[2023-01-06 06:40] LABS: Absolute Lymphocytes (CBC) 0.5 K/uL (0.7-4.9); Hematocrit 43.5 % (36.0-45.0); Lymphocytes % 4.7 % (15.3-44.8); MCV 97.5 fL (80-100); RBC Red Blood Cell Count 4.46 M/uL (3.86-4.86)
--- NOTE | 2023-01-06 06:47 | ECHO ---
HEIGHT: 5 ft 3 in WEIGHT: 109 lb 0 oz DATE OF STUDY: 01/05/[address]: Mehnaz Natarajan MD 2-DIMENSIONAL: YES M.MODE: YES DOPPLER: YES COLOR FLOW: YES TDS: NO PORTABLE: YES DEFINITY: NO BUBBLE STUDY: NO DIAGNOSIS: CONGESTIVE HEART FAILURE CARDIAC HISTORY: CATHERIZATION: NO SURGERY: NO PROSTHETIC VALVE: NO PACEMAKER: NO MEASUREMENTS (cm) DIASTOLIC (NORMALS) SYSTOLIC (NORMALS) IVSd 0.8 (0.6-1.2) LA Diam 2.0 (1.9-4.0) LVEF 73% LVIDd 3.3 (3.5-5.7) LVIDs 1.9 (2.0-3.5) %FS 41% LVPWd 0.8 (0.6-1.2) Ao Diam 2.2 (2.0-3.7) 2 DIMENSIONAL ASSESSMENT: RIGHT ATRIUM: NORMAL LEFT ATRIUM: NORMAL RIGHT VENTRICLE: NORMAL LEFT VENTRICLE: NORMAL TRICUSPID VALVE: MILD TRICUSPID REGURGITATION MITRAL VALVE: NORMAL PULMONIC VALVE: MILD PULMONIC INSUFFICIENCY AORTIC VALVE: NORMAL PERICARDIAL EFFUSION: NONE AORTIC ROOT: NORMAL LEFT VENTRICULAR WALL MOTION: NORMAL. DOPPLER/COLOR FLOW: SEE BELOW. COMMENTS: 1. NORMAL LEFT VENTRICULAR EJECTION FRACTION 60-65% 2. NORMAL WALL MOTION 3. MILD DIASTOLIC DYSFUNCTION 4. RIGHT VENTRICULAR SYSTOLIC PRESSURE IS 40-45mmHg (MILDLY ELEVATED) 5. MILD TRICUSPID REGURGITATION/ MILD PULMONIC INSUFFICIENCY TECHNOLOGIST: SHERRELL RAHMAN
[2023-01-06 06:50] LABS: Albumin 3.6 g/dL (3.4-5.0); Bilirubin Total 0.4 mg/dL (0.2-1.0); Magnesium 2.6 mg/dL (1.6-2.4); Potassium 4.3 mmol/L (3.5-5.1); Protein, Total 6.9 g/dL (6.4-8.2)
[2023-01-06] MEDS ORDERED: REGADENOSON 0.4 MG/5 ML SYR IV ONE (07:25)
[2023-01-06] MEDS: predniSONE 20 MG TAB PO SCH (08:20)
[2023-01-06] MEDS: HOME MED 1 EA UNK (Umeclidinium Brm/Vilanterol Tr [Anoro Ellipta 62.5-25 Mcg Inh] Blst.W.D IH SCH (08:20)
[2023-01-06] MEDS: levoFLOXacin 750 MG TAB PO SCH (08:20)
[2023-01-06] MEDS ORDERED: ALBUTEROL 2.5 MG/3 ML NEB SOL NEB PRN ×2 (08:21→12:00)
[2023-01-06] MEDS: ALPRAZOLAM 0.25 MG TABLET PO PRN (08:25)
[2023-01-06] MEDS ORDERED: ASPIRIN 81 MG CHEWABLE TABLET PO SCH (09:00)
[2023-01-06] MEDS ORDERED: IPRATROPIUM BROM 0.5MG/2.5ML NEB PRN ×2 (09:46→12:00)
--- NOTE | 2023-01-06 10:30 | P.PN ---
Subjective Date of Service: 01/06/23 Chief Complaint: Left-sided chest pain Patient sitting in the bed with no signs of cardiopulmonary distress. In room air. Reported having some blisters in her upper lips and request to have some medication for it. Primary team has been notified. Physical Examination - Vital Signs Temperature: 98.6 F Blood Pressure: 155/85 Pulse: 71 Respirations: 16 Pulse Ox (%): 87 - Physical Exam General: Alert, In no apparent distress, Oriented x3 HEENT: Other (blisters in upper lip) Respiratory: Diminished (mild) Cardiovascular: No edema, Normal S1 S2 Gastrointestinal: Normal bowel sounds Musculoskeletal: No swelling, No tenderness Integumentary: No rashes, No breakdown Neurological: Normal speech, Normal tone, Normal affect - Studies Acetaminophen (Acetaminophen 500 Mg Tab) 500 mg PO Q6H PRN PRN Reason: pain/fever Albuterol Sulfate (Albuterol 2.5 Mg/3 Ml Neb Fely) 2.5 mg NEB Q6HP PRN PRN Reason: SHORTNESS OF BREATH Alprazolam (Alprazolam 0.25 Mg Tablet) 0.25 mg PO TID PRN PRN Reason: ANXIETY Last Admin: 01/06/23 08:25 Dose: 0.25 mg Aspirin (Aspirin 81 Mg Chewable Tablet) 81 mg PO DAILY [facility] Last Admin: 01/06/23 08:20 Dose: Not Given Gabapentin (Gabapentin 400 Mg Cap) 400 mg PO TIDP PRN PRN Reason: Pain scale 5-7 (Moderate) Last Admin: 01/05/23 21:07 Dose: 400 mg Home Med (Umeclidinium Brm/Vilanterol Tr [Anoro Ellipta 62.5-25 Mcg Inh]) 2 puff IH DAILY [facility] Last Admin: 01/06/23 08:20 Dose: 2 puff Ipratropium [place] (Ipratropium Brom 0.5mg/2.5ml) 0.5 mg NEB Q6HP PRN PRN Reason: SHORTNESS OF BREATH Levofloxacin (Levofloxacin 750 Mg Tab) 750 mg PO DAILY [facility]; Protocol Last Admin: 01/06/23 08:20 Dose: Not Given Methocarbamol (Methocarbamol 500 Mg Tab) 500 mg PO TIDP PRN PRN Reason: Pain scale 8-10 (Severe) Last Admin: 01/05/23 21:06 Dose: 500 mg Morphine Sulfate (Morphine 2 Mg/Ml Syr) 2 mg IV Q4H PRN PRN Reason: Pain scale 5-7 (Moderate) Last Admin: 01/05/23 13:32 Dose: 2 mg Ondansetron HCl (Ondansetron 4 Mg/2 Ml Vial) 4 mg IV Q4H PRN PRN Reason: NAUSEA / VOMITING Prednisone (Prednisone 20 Mg Tab) 20 mg PO BID [facility] Last Admin: 01/06/23 08:20 Dose: Not Given Sodium Chloride (Flush Normal Saline 10 Ml) 10 ml IV BID [facility] Last Admin: 01/06/23 08:20 Dose: 10 ml Microbiology Data (last 24 hrs): Microbiology 01/03/23 15:15 Blood - Blood Aerobic Blood Culture - Preliminary No growth in 24 hours. 01/03/23 15:15 Blood - Blood Anaerobic Blood Culture - Preliminary No growth in 24 hours. 01/03/23 15:00 Blood - Blood Aerobic Blood Culture - Preliminary No growth in 24 hours. 01/03/23 15:00 Blood - Blood Anaerobic Blood Culture - Preliminary No growth in 24 hours. Medications List Reviewed: Yes Assessment And Plan - Current Problems (Diagnosis) (1) Pulmonary Mycobacterium avium complex (MAC) infection Current Visit: Yes Status: Acute Plan: Questionable due to patient has co-existing medical conditions as scoliosis, COPD, bronchiectasis, and heart issue Cultures: 01/05: Sputum: pending 01/03 BC x 2: Negative Antibiotics: Current on PO Levaquin (01/04- ) Recommendations: Continue PO Levaquin for total of 10 days ID will provide antibiotics drug of choice when sputum culture is available Pulmonary bronchoscopy if needed - Plan - COPD with acute exacerbation - Bronchiectasis - Pulmonary Mycobacterium avium complex (MAC) infection - Sciatica - Scoliosis - Hysterectomy - Cold sores on lip ID will monitor the patient closely for signs of infection with fever and WBC trends Case has been discussed with Dr. Roman, N
[2023-01-06 10:41] VITALS: O2SAT 92
--- NOTE | 2023-01-06 14:22 | RAD REPORT ---
EXAM DESCRIPTION: NM - Rest Stress Cardiac Imaging - 01/06/2023 2:16 pm CLINICAL HISTORY: . Chest pain. COMPARISON: No comparisons TECHNIQUE: The patient was administered approximately 10mCi of Tc 99m Sestamibi prior to resting SPE CT imaging of the heart. The patient was then administered approximately 30 mCi of Tc 99m Sestamibi f ollowing exercise or pharmacologic stress. Multiplanar SPECT images were reviewed. FINDINGS: No stress induced ischemic defect is seen to suggest stress induced ischemia. No fixed def ect is seen to suggest hibernating myocardium or scarred myocardium. The end diastolic volume is 85 ml, the end systolic volume is 31 ml, and the ejection fraction is 63 %. IMPRESSION: No stress induced ischemia.
[2023-01-06] MEDS: methocarbamoL 500 MG TAB PO PRN (15:29)
[2023-01-06 16:13] VITALS: BP 162/77; TEMP 97.9
--- NOTE | 2023-01-06 16:43 | P.DS ---
Admission Date: 01/03/23 Discharge Date: 01/06/23 Disposition: ROUTINE DISCHARGE Discharge Condition: GOOD Reason for Admission: Left-sided chest pain Consultations: 1. Pulmonary Medicine 2. Infectious Diseases Hospital Course: DIAGNOSES: # Acute Hypoxic Respiratory Failure - likely secondary to Acute Chronic Obstructive Pulmonary Disease Exacerbation # Sepsis likely secondary to Myocbacterium Avium Complex (MAC) Infection - POA # Mild Pulmonary Hypertension # Bronchiectasis # Atypical Chest Pain # Sciatica HOSPITAL COURSE: Ms. Carmenza Saldivar is a pleasant 72-year-old female with a past medical history significant for chronic obstructive pulmonary disease, bronchiectasis, and sciatica who was admitted to the [facility] on for shortness of breath. She was admitted to the Medicine service. Upon further evaluation, she was found to have acute hypoxic respiratory failure, which was thought to be secondary to an acute COPD exacerbation. Additionally, she met sepsis criteria, with a suspected pulmonary infectious source. Her chest x-ray revealed, "coarsened interstitial lung markings in the bases could reflect mild infection or inflammation." CT chest revealed, "no aortic aneurysm, aortic dissection, or pulmonary embolus. Bronchiectasis in nodularity in the lingula likely secondary to a chronic or indolent infectious process such as mycobacterial avium complex. Background of emphysema." Her transthoracic echocardiogram revealed, "1. normal left ventricular ejection fraction 60-65% 2. normal wall motion 3. mild diastolic dysfunction 4. right ventricular systolic pressure is 40-45mmhg (mildly elevated) 5. mild tricuspid regurgitation/ mild pulmonic insufficiency." Pulmonary Medicine was consulted and she was evaluated by Dr. Thomas. He recommended steroids and bronchodilators, and over the course of her hospitalization, her symptoms improved significantly. On her CT scan, there was concern for Mycobacterium Avium Complex, so Infectious Diseases was consulted. She was evaluated by Dr. Roman, who cleared her for discharge with 10 days of levofloxacin. During her hospitalization, she complained of chest pain, so Cardiology was consulted. Her troponin trend was 3.9 -> 3.6 -> 4.0. She was evaluated by Dr. Figueroa, who recommended a nuclear stress test. This revealed, "no stress induced ischemia." Dr. Figueroa has cleared her for discharge with outpatient follow-up. On 01/06/2023, she was seen on morning rounds and deemed medically stable for discharge. She was discharged with instructions to schedule follow-up appointments with her PCP, with Cardiology (Dr. Figueroa), and with Pulmonology (Dr. Thomas). She was provided prescriptions for levofloxacin and prednisone. She was given the opportunity to ask questions and reported no further questions. Furthermore, all questions were answered to the best of my ability. A copy of this discharge summary will be sent to the above providers to facilitate continuity of care. Today, I personally spent 25 minutes on her case, of which greater than 50% of the time was spent in patient education, counseling, and coordination of care as described above. - Physical Exam General: Alert, In no apparent distress, Oriented x3 HEENT: Atraumatic, Sclerae nonicteric Neck: JVD not distended Respiratory: Diminished, Clear to auscultation, without wheezes or rales Cardiovascular: No edema, Regular rate/rhythm, No murmurs Gastrointestinal: Soft, Non-distended, No tenderness, No rebound, No guarding Musculoskeletal: No clubbing Integumentary: No rashes Neurological: Normal speech, Normal affect Vital Signs/Physical Exam: Temp Pulse Resp BP Pulse Ox 97.9 F 84 16 162/77 H 92 01/06/23 16:00 01/06/23 16:00 01/06/23 16:00 01/06/23 16:00 01/06/23 16:00 Laboratory Data at Discharge: WBC 11.20 K/uL (4.3-10.9) H 01/06/23 06:06 Hgb 14.5 g/dL (12.0-15.0) 01/06/23 06:06 Hct 43.5 % (36.0-45.0) 01/06/23 06:06 Plt Count 268 K/uL (152-406) 01/06/23 06:06 PT 12.0 SECONDS (9.5-12.5) 01/04/23 03:24 INR 1.09 01/04/23 03:24 APTT 28.5 SECONDS (24.3-36.9) 01/04/23 03:24 Sodium 140 mmol/L (136-145) 01/06/23 06:06 Potassium 4.3 mmol/L (3.5-5.1) 01/06/23 06:06 BUN 20 mg/dL (7-18) H 01/06/23 06:06 Creatinine 0.64 mg/dL (0.55-1.02) 01/06/23 06:06 Glucose 113 mg/dL (74-106) H 01/06/23 06:06 Magnesium 2.6 mg/dL (1.6-2.4) H 01/06/23 06:06 Total Bilirubin 0.4 mg/dL (0.2-1.0) 01/06/23 06:06 AST 19 U/L (15-37) 01/06/23 06:06 ALT 20 U/L (13-56) 01/06/23 06:06 Alkaline Phosphatase 58 U/L (45-117) 01/06/23 06:06 Home Medications: RX: ALPRAZolam [Xanax*] 0.25 mg PO TID PRN 10/03/15 RX: Gabapentin [Neurontin*] 400 mg PO TIDP PRN 01/03/23 RX: Umeclidinium Brm/Vilanterol Tr [Anoro Ellipta 62.5-25 Mcg INH] 2 puff IH DAILY 01/03/23 RX: methocarbamoL [Robaxin*] 500 mg PO TIDP PRN 01/03/23 RX: Aspirin Chewable [Aspirin Chewable*] 81 mg PO DAILY tab.chew 01/06/23 RX: levoFLOXacin [Levaquin*] 750 mg PO DAILY 10 Days #10 tab 01/06/23 RX: predniSONE [Prednisone*] 20 mg PO BID 5 Days #10 tab 01/06/23 New Medications: RX: levoFLOXacin [Levaquin*] 750 mg PO DAILY 10 Days #10 tab RX: predniSONE [Prednisone*] 20 mg PO BID 5 Days #10 tab Physician Discharge Instructions: 1. Please call and schedule a follow-up appointment with your PCP in 3-5 days 2. Please call and schedule a follow-up appointment with Cardiology (Dr. Figueroa) in 3-5 days 3. Please call and schedule a follow-up appointment with Pulmonology (Dr. Thomas) in 3-5 days Followup: Ivan Thomas MD [ACTIVE - CAN ADMIT] - Spencer Figueroa MD [ACTIVE - CAN ADMIT] - Time spent managing pt's care (in minutes): 25
--- NOTE | 2023-01-06 17:22 | EKG ---
Test Date: 2023-01-03 Test Time: 13:11:08 [employer] Pumper: MARTHA MEASUREMENT RESULTS: Intervals: Rate: 105 OK: 140 QRSD: 100 QT: 362 QTc: 478 Sanders: P: 83 OK: 140 QRS: 74 T: 153 INTERPRETIVE STATEMENTS: Sinus tachycardia Possible Left atrial enlargement Nonspecific ST and T wave abnormality Abnormal ECG No previous ECG available for comparison Electronically Signed On 01-06-23 17:15:07 HIDE AND SKIN [employer]ERER by Spencer Figueroa
--- NOTE | 2023-01-07 07:49 | TREADPHA ---
DX: CHEST PAIN, RULE OUT ACUTE CORONARY SYNDROME Date of Study: 01/06/2023 Ht: 5' 3 " Wt: 109 lb 0 oz Consulting Physician: HOLLIE MEDICATIONS: TYLENOL, PROVENITL, XANAX, ASPIRIN, LEVAQUIN, ROBAXIN, MORPHINE, ZOFRAN, DELTASONE, NEURONTIN HISTORY: 72 YEAR OLD FEMALE WITH HISTORY OF CHRONIC OBSTRUCTIVE PULMONARY DISEASE, SCOLIOSIS, REPORTS OCCASIONAL MARIJUANA USE. DENIES ALCOHOL USE, STATES QUIT SMOKING TWELVE YEARS AGO. REPORTS SMOKING FOR GREATER THAN TWENTY YEARS. PHYSICIAL EXAMINATION: RESTING B.P.: 148/97 RESTING H.R.: 72 RESTING EKG: NORMAL SINUS RHYTHM WITH LEFT VENTRICULAR HYPERTROPHY PROTOCOL: PHARMACOLOGIC EXERCISE TIME: 3:30 B.P. AT PEAK STRESS: 153/84 IMPRESSION: LEXISCAN INJECTED, CARDIOLITE GIVEN PER PROTOCOL. SEE NUCLEAR MEDICINE REPORT. COMPLAINTS OF CHEST TIGHTNESS AND SHORTNESS OF BREATH. NO SUPRAVENTRTICULAR TACHYCARDIA, VENTRICULAR TACHYCARDIA, PREMATURE VENTRICULAR COMPLEXES OR PREMATURE ATRIAL COMPLEXES NOTED. NO ELECTROCARDIOGRAM CHANGES WITH LEXISCAN.
== END 2023-01-06 17:30 | disposition home or self-care (01) | DRG 871 ==
LOC: ER 12:58 → ERHOLD 17:05 → 2ND 19:36
PROVIDERS: ADMIT Hospitalist; ATTEND Internal Medicine
DX: A41.9 Sepsis, unspecified organism (principal); J15.8 Pneumonia due to other specified bacteria; J96.01 Acute respiratory failure with hypoxia; J47.0 Bronchiectasis with acute lower respiratory infection; A31.0 Pulmonary mycobacterial infection; M41.9 Scoliosis, unspecified; K13.79 Other lesions of oral mucosa; I27.20 Pulmonary hypertension, unspecified; I07.1 Rheumatic tricuspid insufficiency; M54.30 Sciatica, unspecified side; Z79.52 Long term (current) use of systemic steroids; Z79.899 Other long term (current) drug therapy; Z90.710 Acquired absence of both cervix and uterus; Z87.891 Personal history of nicotine dependence; Z20.822 Contact with and (suspected) exposure to COVID-19
CPT/HCPCS: 0240U; 36415; 71045; 71275; 74175; 78452; 80048; 80053; 80076; 82805; 83605; 83735; 83880; 84145; 84484; 85025; 85610; 85730; 87015; 87040; 87070; 87116; 87205; 87206; 93005; 93017; 93306; 96374; 96375; 99285; J2270; J2405; J2785; J2920; J2930; J7512; J7613; J7614; J7644; Q9967

== ENCOUNTER 2023-01-26 05:50 | Emergency (ER) | payer OTHER ==
[2023-01-26 06:15] LABS: Absolute Lymphocytes (CBC) 1.9 K/uL (0.7-4.9); Lymphocytes % 19.4 % (15.3-44.8); MPV 8.7 fL (7.6-11.3); RBC Red Blood Cell Count 4.64 M/uL (3.86-4.86)
[2023-01-26] MEDS ORDERED: METOCLOPRAMIDE 10 MG/2mL INJ ONE (06:15)
[2023-01-26] MEDS ORDERED: NA CHLORIDE 0.9% 500 ML ONE (06:15)
[2023-01-26] MEDS ORDERED: MORPHINE 4 MG/ML SYR ONE (06:15)
[2023-01-26] MEDS ORDERED: ONDANSETRON 4 MG/2 ML VIAL ONE (06:15)
[2023-01-26 07:00] LABS: ALT/SGPT 18 U/L (13-56); AST/SGOT 15 U/L (15-37); Albumin 3.5 g/dL (3.4-5.0); Alkaline Phosphatase 52 U/L (45-117); BUN Blood Urea Nitrogen 23 mg/dL (7-18); Bicarbonate 32 mmol/L (21-32); Bilirubin Total 0.4 mg/dL (0.2-1.0); Creatine Phosphokinase 26 U/L (26-192); Glomerular Filtration Rate 89 ml/min (=/>90); Glucose Level 129 mg/dL (74-106); Lipase 29 U/L (13-75); Potassium 3.6 mmol/L (3.5-5.1); Protein, Total 6.2 g/dL (6.4-8.2); Sodium Level 139 mmol/L (136-145); Troponin High Sensitivity 3.4 pg/mL (<58.9)
[2023-01-26 07:03] LABS: C-Reactive Protein < 2.90 mg/L (<3.00)
--- NOTE | 2023-01-26 07:59 | RAD REPORT ---
EXAM DESCRIPTION: CT - Abdomen Pelvis W Contrast - 01/26/2023 7:31 am CLINICAL HISTORY: ABD PAIN left lower quadrant. Nausea COMPARISON: No comparisons TECHNIQUE: Thin cut axial CT imaging of the abdomen and pelvis was performed following intravenous a dministration of 95 mL Isovue 300. Multiplanar reformats were generated and reviewed. All CT scans are performed using dose optimization technique as appropriate and may include automated exposure control or mA/KV adjustment according to patient size. FINDINGS: No suspicious findings in the lung bases. The liver, spleen, and pancreas show no suspicious findings. Gallbladder and biliary tree are also wi thout suspicious finding. Symmetric renal function is seen. Mild left hydroureteronephrosis. A distal left ureteric 4 millimete r calculus is noted, which may be causing some degree of obstruction. A 3 millimeter left superior po le calculus is also noted. No dilated bowel loops or bowel wall thickening. No free air, free fluid or inflammatory stranding. N o hernia, mass or bulky lymphadenopathy. The urinary bladder is without significant finding. No suspicious bony findings. Dextroconvex thoracolumbar scoliosis. IMPRESSION: Mild left hydroureteronephrosis. Distal left ureter 4 millimeter calculus which may be c ausing some degree of obstruction. Another 3 millimeter left superior pole nonobstructing calculus. The findings were communicated to Aditya Cannon on 01/26/2023 at 07:51 hours.
[2023-01-26 08:30] LABS: Urine Blood 2+ (Negative); Urine Glucose Negative (Negative); Urine Protein Negative (Negative); Urine Specific Gravity <=1.005 (1.005-1.030); Urine pH 5.5 (5.0-7.0)
[2023-01-26 08:40] LABS: Urine Bacteria None Seen /HPF (<20); Urine Mucus Slight /HPF (None Seen); Urine RBC 21-50 /HPF (None Seen)
--- NOTE | 2023-01-26 09:33 | ER ---
Nurse's Notes [facility] Name: Carmenza Saldivar Age: 72 yrs Sex: Female : 1950 Arrival Date: 01/26/2023 Time: 05:54 Bed 5 Private MD: Diagnosis: Calculus of ureter Presentation: 01/26 06:00 Chief complaint: Patient states: LLQ pain of 10 and left side pain,onset 0330 with pf1 nausea. 06:00 Coronavirus screen: Vaccine status: Patient reports receiving the 2nd dose of the covid pf1 vaccine. 3 doses of pfizer Client denies travel out of the [place] in the last 14 days. At this time, the client does not indicate any symptoms associated with coronavirus-19. Ebola Screen: Patient negative for fever greater than or equal to 101.5 degrees Fahrenheit, and additional compatible Ebola Virus Disease symptoms. Initial Sepsis Screen: Does the patient meet any 2 criteria? No. Patient's initial sepsis screen is negative. Does the patient have a suspected source of infection? No. Patient's initial sepsis screen is negative. Risk Assessment: Do you want to hurt yourself or someone else? Patient reports no desire to harm self or others. Onset of symptoms was January 26, 2023 at 03:30. 06:00 Method Of Arrival: Wheelchair pf1 06:00 Acuity: ROBIN 3 pf1 Historical: - Allergies: 06:13 No Known Allergies; pf1 - PMHx: 06:13 sciatica; scoliosis; Chronic back pain; COPD; Osteoarthritis; pf1 06:15 02 dependent 2LNC PRN; pf1 - PSHx: 06:15 hysterectomy; pf1 - Immunization history:: Adult Immunizations up to date, 3 doses of pfizer Flu vaccine is up to date. - Social history:: Smoking status: Patient/guardian denies using tobacco, the patient reports quitting approximately 13 years ago, Patient uses street drugs, marijuana, Patient/guardian denies using alcohol. - Family history:: not pertinent. - Hospitalizations: : No recent hospitalization is reported. Screenin:17 [facility] ED Fall Risk Assessment (Adult) History of falling in the last 3 months, pf1 including since admission No falls in past 3 months (0 pts) Confusion or Disorientation No (0 pts) Intoxicated or Sedated No (0 pts) Impaired Gait No (0 pts) Mobility Assist Device Used No (0 pt) Altered Elimination No (0 pt) Score/Fall Risk Level 0 - 2 = Low Risk Oriented to surroundings, Maintained a safe environment, Educated pt \T\ family on fall prevention, incl call for assistance when getting out of bed, Assessed \T\ reinforced patient's understanding of fall precautions, Provided non-skid footwear, Hourly rounding (assess needs \T\ fall precautionary measures) done, Used ambulatory aids as needed (educated on \T\ assisted with), Used gait belt as appropriate. Abuse screen: Denies threats or abuse. Nutritional screening: No deficits noted. Tuberculosis screening: No symptoms or risk factors identified. Assessment: 06:20 General: Appears uncomfortable, slender, Behavior is cooperative, crying. Pain: as6 Complains of pain in left lower quadrant. GI: Abdomen is tender to palpation in left lower quadrant Reports lower abdominal pain, nausea. 07:00 Reassessment: 72YO FEMALE WITH LLQ PAIN, CT PENDING. REPORT FROM DEE OSPINA. bp 07:24 Reassessment: Pt taken to CT. ph 07:49 Reassessment: PT RETURNED FROM CT. bp Vital Signs: 06:00 BP 131 / 81; Pulse 65; Resp 20; Temp 97.8; Pulse Ox 91% on R/A; Weight 49.9 kg; Height pf1 5 ft. 3 in. (160.02 cm); Pain 10/10; 06:39 BP 121 / 56; Pulse 67; Resp 19; Pulse Ox 97% on R/A; kd3 07:49 BP 116 / 51; Pulse 71; Resp 16; Pulse Ox 99% ; bp 06:00 Body Mass Index 19.49 (49.90 kg, 160.02 cm) pf1 ED Course: 05:54 Patient arrived in ED. [id number] 06:00 Yohan Varghese MD is Attending Physician. sp4 06:07 Jake Mathias, ANAI is Primary Nurse. as6 06:09 Inserted saline lock: 20 gauge in right antecubital area, using aseptic technique. as6 Blood collected. 06:13 Triage completed. pf1 06:13 Lipase Sent. rv1 06:13 CMP Sent. rv1 06:13 CBC with Diff Sent. rv1 06:13 Troponin High Sensitivity Sent. rv1 06:13 CK Sent. rv1 06:13 CRP Sent. rv1 06:19 Arm band placed on. as6 06:21 Placed in gown. Bed in low position. Call light in reach. Side rails up X 1. Client as6 placed on continuous cardiac and pulse oximetry monitoring. NIBP monitoring applied. Warm blanket given. 07:07 Primary Nurse role handed off by Jake Mathias RN bp 07:07 Gustavo Phillip, ANAI is Primary Nurse. bp 07:41 Attending Physician role handed off by Yohan Varghese MD rt 07:41 Aditya Cannon MD is Attending Physician. rt 07:50 COVID-19 SARS RT PCR Sent. bp 07:51 CT Abd/Pelvis - IV Contrast Only Sent. bp 09:32 Francois Colon MD is Referral Physician. rt 09:36 Urine Microscopic Only Sent. bp 09:45 No provider procedures requiring assistance completed. IV discontinued, intact, iw bleeding controlled, No redness/swelling at site. Pressure dressing applied. Administered Medications: 06:19 Drug: Zofran (Ondansetron) 4 mg Route: IVP; Site: right antecubital; as6 06:19 Drug: morphine 4 mg Route: IVP; Infused Over: 4 mins; Site: right antecubital; as6 06:19 Drug: NS 0.9% 500 ml Route: IV; Rate: bolus; Site: right antecubital; as6 06:19 Drug: Reglan (metoCLOPramide) 10 mg Route: IVP; Site: right antecubital; as6 07:51 Follow up: Response: No adverse reaction bp Medication: 06:22 VIS not applicable for this client. as6 Outcome: 09:32 Discharge ordered by MD. rt 09:45 Discharged to home ambulatory, with family. iw 09:45 Condition: good 09:45 Discharge instructions given to patient, family, Instructed on discharge instructions, follow up and referral plans. medication usage, Demonstrated understanding of instructions, follow-up care, medications, Prescriptions given X 1. 09:46 Patient left the ED. iw Signatures: Azalea Espino RN RN Melissa Villegas RN RN Gustavo Phillip RN RN bp Apolonia Brown jj6 Jake Mathias RN RN as6 Dee Elliott, RN RN kd3 Aditya Cannon MD MD rt [place] barber, RN RN pf1 Emilia Cardenas rv1 Yohan Varghese MD MD sp4
--- NOTE | 2023-01-26 09:33 | EDPHYS ---
Physician Documentation [facility] Name: Carmenza Saldivar Age: 72 yrs Sex: Female : 1950 Arrival Date: 01/26/2023 Time: 05:54 Bed 5 Private MD: ED Physician Aditya Cannon HPI: 01/26 06:00 This 72 yrs old Female presents to ER via Unassigned with complaints of LEFT sp4 SIDE PAIN. 07:04 72-year-old female with history of scoliosis, chronic back pain, COPD, osteoarthritis sp4 presents with acute onset of left flank left lower abdominal pain that is moderate to severe starting at 3:30 in the morning and waking her up from her. Patient reports moderate nausea but no vomiting and she denied fever, hematuria, dysuria, generalized aches, and denied feeling unwell otherwise. Historical: - Allergies: 06:13 No Known Allergies; pf1 - PMHx: 06:13 sciatica; scoliosis; Chronic back pain; COPD; Osteoarthritis; pf1 06:15 02 dependent 2LNC PRN; pf1 - PSHx: 06:15 hysterectomy; pf1 - Immunization history:: Adult Immunizations up to date, 3 doses of [employer] Flu vaccine is up to date. - Social history:: Smoking status: Patient/guardian denies using tobacco, the patient reports quitting approximately 13 years ago, Patient uses street drugs, marijuana, Patient/guardian denies using alcohol. - Family history:: not pertinent. - Hospitalizations: : No recent hospitalization is reported. ROS: 07:04 Constitutional: Negative for fever, chills, and weight loss, Eyes: Negative for injury, sp4 pain, redness, and discharge, ENT: Negative for injury, pain, and discharge, Neck: Negative for injury, pain, and swelling, Cardiovascular: Negative for chest pain, palpitations, and edema, Respiratory: Negative for shortness of breath, cough, wheezing, and pleuritic chest pain, Abdomen/GI: Negative for vomiting, diarrhea, and constipation, positive for left lower abdominal pain, left flank pain, and positive for moderate nausea Back: Negative for injury positive for left flank pain with radiation to the back : Negative for injury, bleeding, discharge, and swelling, MS/Extremity: Negative for injury and deformity, Skin: Negative for injury, rash, and discoloration, Neuro: Negative for headache, weakness, numbness, tingling, and seizure, Psych: Negative for depression, anxiety, suicide ideation, homicidal ideation, and hallucinations, Allergy/Immunology: Negative for hives, rash, and allergies, Endocrine: Negative for neck swelling, polydipsia, polyuria, polyphagia, and marked weight changes, Hematologic/Lymphatic: Negative for swollen nodes, abnormal bleeding, and unusual bruising. Exam: 07:04 Constitutional: This is a well developed, well nourished patient who is awake, alert, sp4 patient appears acutely uncomfortable and is in mild to moderate distress secondary to pain. Head/Face: Normocephalic, atraumatic. Eyes: Pupils equal round and reactive to light, extra-ocular motions intact. Lids and lashes normal. Conjunctiva and sclera are non-icteric and not injected. Cornea within normal limits. Periorbital areas with no swelling, redness, or edema. ENT: Nares patent. No nasal discharge, no septal abnormalities noted. Tympanic membranes are normal and external auditory canals are clear. Oropharynx with no redness, swelling, or masses, exudates, or evidence of obstruction, uvula midline. Mucous membranes moist. Neck: Trachea midline, no thyromegaly or masses palpated, and no cervical lymphadenopathy. Supple, full range of motion without nuchal rigidity, or vertebral point tenderness. No Meningismus. Chest/axilla: Normal chest wall appearance and motion. Nontender with no deformity. No lesions are appreciated. Cardiovascular: Regular rate and rhythm with a normal S1 and S2. No gallops, murmurs, or rubs. Normal PMI, no JVD. No pulse deficits. Respiratory: Lungs have equal breath sounds bilaterally, clear to auscultation and percussion. No rales, rhonchi or wheezes noted. No increased work of breathing, no retractions or nasal flaring. Abdomen/GI: Soft, with normal bowel sounds. No distension or tympany. No guarding No evidence of tenderness throughout. There is a left upper and left lower abdominal tenderness with equivocal rebound, there is scarring from prior hysterectomy Back: No spinal tenderness. No costovertebral tenderness. Skin: Warm, dry with normal turgor. Normal color with no rashes, no lesions, and no evidence of cellulitis. MS/ Extremity: Pulses equal, no cyanosis. Neurovascular intact. Full, normal range of motion. Neuro: Awake and alert, GCS 15, oriented to person, place, time, and situation. Cranial nerves II-XII grossly intact. Motor strength 5/5 in all extremities. Sensory grossly intact. Cerebellar exam normal. Normal gait. Psych: Awake, alert, with orientation to person, place and time. Behavior, mood, and affect are within normal limits. 07:04 ECG was reviewed by the Attending Physician. Normal sinus rhythm at the rate of 62, sp4 normal EKG overall, no ST elevation or depression, no ectopy, normal axis, and normal interval, EKG time 0607 in the morning Vital Signs: 06:00 BP 131 / 81; Pulse 65; Resp 20; Temp 97.8; Pulse Ox 91% on R/A; Weight 49.9 kg; Height pf1 5 ft. 3 in. (160.02 cm); Pain 10/10; 06:39 BP 121 / 56; Pulse 67; Resp 19; Pulse Ox 97% on R/A; kd3 07:49 BP 116 / 51; Pulse 71; Resp 16; Pulse Ox 99% ; bp 06:00 Body Mass Index 19.49 (49.90 kg, 160.02 cm) pf1 MDM: 06:10 Patient medically screened. sp4 07:04 Differential Diagnosis sepsis, Diverticulitis, bowel obstruction, volvulus, renal sp4 stone, ureteral stone, bladder stone, pyelonephritis. Data reviewed: vital signs, nurses notes, lab test result(s), EKG, radiologic studies. ED course: Very pleasant 72-year-old female with a history of COPD and chronic back pain presents with acute onset of left lower abdominal pain and a left flank pain. Patient was given IV morphine for pain and we are currently awaiting on CT abdomen and pelvis, patient's care will be transferred to morning physician for additional care. 09:34 Independent interpretation of the following test(s) in the Emergency Department CT rt Scan: My interpretation is Ureteral stone seen on my interpretation of the CT images, no bowel obstruction.. Discussion of test interpretation with radiology: I had a discussion with radiology regarding a test interpretation. Discussed kidney stone with radiologist. Care significantly affected by the following chronic conditions: Chronic Obstructive Pulmonary Disease. Counseling: I had a detailed discussion with the patient and/or guardian regarding: the historical points, exam findings, and any diagnostic results supporting the discharge/admit diagnosis, lab results, radiology results, the need for outpatient follow up, to return to the emergency department if symptoms worsen or persist or if there are any questions or concerns that arise at home. Response to treatment: the patient's symptoms have resolved after treatment. 01/26 06:05 Order name: COVID-19 SARS RT PCR sp4 01/26 06:05 Order name: CBC with Diff sp4 01/26 06:05 Order name: CMP sp4 01/26 06:05 Order name: Lipase sp4 01/26 06:05 Order name: CT Abd/Pelvis - IV Contrast Only sp4 01/26 06:05 Order name: IV Saline Lock; Complete Time: 06:07 sp4 01/26 06:05 Order name: Labs collected and sent; Complete Time: 06:13 sp4 01/26 06:06 Order name: EKG; Complete Time: 06:06 sp4 01/26 06:06 Order name: EKG - Nurse/Tech; Complete Time: 06:07 sp4 01/26 06:06 Order name: Troponin High Sensitivity sp4 01/26 06:06 Order name: CK sp4 01/26 06:06 Order name: CRP sp4 01/26 06:18 Order name: CBC with Automated Diff; Complete Time: 07:11 EDMS 01/26 07:04 Order name: Comprehensive Metabolic Panel; Complete Time: 07:11 EDMS 01/26 07:04 Order name: Creatine Phosphokinase; Complete Time: 07:11 EDMS 01/26 07:04 Order name: Troponin High Sensitivity; Complete Time: 07:11 EDMS 01/26 07:04 Order name: C-Reactive Protein; Complete Time: 07:11 EDMS 01/26 07:04 Order name: Lipase; Complete Time: 07:11 EDMS 01/26 07:09 Order name: SARS-COV-2 RT PCR; Complete Time: 07:11 EDMS 01/26 07:57 Order name: Urine Dipstick-Ancillary (obtain specimen); Complete Time: 08:57 rt 01/26 07:57 Order name: Urine Microscopic Only rt 01/26 08:00 Order name: CT; Complete Time: 08:14 EDMS 01/26 08:30 Order name: Urine Dipstick-Ancillary; Complete Time: 09:22 EDMS 01/26 08:40 Order name: Urine Microscopic Only; Complete Time: :22 EDMS EC:04 Rate is 62 beats/min. Rhythm is regular. QRS [place] is Normal. [place] interval is normal. QRS sp4 interval is normal. QT interval is normal. No ST changes noted. Clinical impression: No evidence of ischemia. Interpreted by me. Administered Medications: 06:19 Drug: Zofran (Ondansetron) 4 mg Route: IVP; Site: right antecubital; as6 06:19 Drug: morphine 4 mg Route: IVP; Infused Over: 4 mins; Site: right antecubital; as6 06:19 Drug: NS 0.9% 500 ml Route: IV; Rate: bolus; Site: right antecubital; as6 06:19 Drug: Reglan (metoCLOPramide) 10 mg Route: IVP; Site: right antecubital; as 07:51 Follow up: Response: No adverse reaction bp Disposition Summary: 01/26/23 09:32 Discharge Ordered Location: Home rt Problem: new rt Symptoms: are resolved rt Condition: Stable rt Diagnosis - Calculus of ureter rt Followup: rt - With: Francois Colon MD - When: 5 - 6 days - Reason: Discharge Instructions: - Discharge Summary Sheet rt - Kidney Stones rt Forms: - Medication Reconciliation Form rt - Thank You Letter rt - Antibiotic Education rt - Prescription Opioid Use rt Prescriptions: - Tylenol-Codeine #3 300 mg-30 mg Oral - take 1 tablet by ORAL route every 6 hours; 18 tablet; Refills: 0, Product rt Selection Permitted Signatures: Dispatcher [employer] Jake Guardado RN RN as6 Aditya Cannon MD MD rt [place] barber RN RN pf1 Yohan Varghese MD MD sp4 Gustavo Phillip RN bp
[2023-01-26 10:14] VITALS: O2SAT 99
[2023-01-26 10:27] VITALS: BP 104/63; TEMP 98.6
--- NOTE | 2023-01-26 16:36 | EKG ---
Test Date: 2023-01-26 Test Time: 06:07:12 Screen Printing Machine Operator: PUMA MEASUREMENT RESULTS: Intervals: Rate: 62 AL: 140 QRSD: 98 QT: 436 QTc: 442 Jewell: P: 84 AL: 140 QRS: 78 T: 74 INTERPRETIVE STATEMENTS: Normal sinus rhythm Normal ECG Compared to ECG 01/03/2023 13:11:08 Sinus tachycardia no longer present ST (T wave) deviation no longer present Electronically Signed On 01-26-23 16:35:32 BUSINESS TRANSFORMATION ANALYST by Spencer Figueroa
== END 2023-01-26 09:46 | disposition home or self-care (01) ==
LOC: ER 05:50
DX: N20.1 Calculus of ureter (principal); J44.9 Chronic obstructive pulmonary disease, unspecified; Z99.81 Dependence on supplemental oxygen; Z20.822 Contact with and (suspected) exposure to COVID-19
CPT/HCPCS: 96361; 93005; 85025; 36415; 82550; 84484; 83690; 80053; 86140; 74177; 96375; 96374; 99284; U0003; Q9967; J2765; J7040; J2405; 81003; 81015

== ENCOUNTER 2023-07-24 12:46 | Emergency (ER) | payer OTHER ==
--- NOTE | 2023-07-24 13:48 | RAD REPORT ---
EXAM DESCRIPTION: RAD - Lumbar Spine 3 Views - 07/24/2023 1:39 pm CLINICAL HISTORY: PAIN Radiculopathy COMPARISON: No comparisons FINDINGS: There is advanced degenerative dextroscoliosis of the lumbar spine present. Multilevel vac uum disc degeneration is present. Abdominal aortic atherosclerosis.
--- NOTE | 2023-07-24 13:49 | RAD REPORT ---
EXAM DESCRIPTION: RAD - Hip Left 2 View - 07/24/2023 1:39 pm CLINICAL HISTORY: PAIN COMPARISON: No comparisons FINDINGS: No fracture, dislocation or AVN is seen. Mild arthritic changes.
--- NOTE | 2023-07-24 13:49 | RAD REPORT ---
EXAM DESCRIPTION: RAD - Hip Right 2 View - 07/24/2023 1:39 pm CLINICAL HISTORY: PAIN COMPARISON: No comparisons FINDINGS: No fracture, dislocation or AVN.
--- NOTE | 2023-07-24 14:04 | EDPHYS ---
Physician Documentation [facility] Name: Carmenza Saldivar Age: 73 yrs Sex: Female : 1950 Arrival Date: 07/24/2023 Time: 12:46 Bed 16 Private MD: ED Physician Rey Villa HPI: 07/24 13:04 This 73 yrs old Female presents to ER via Unassigned with complaints of Hip Pain - 4 rn DAYS. 13:04 The patient or guardian reports pain. The complaints affect the back and pelvis. Onset: rn The symptoms/episode began/occurred 18 year(s) ago. Modifying factors: The symptoms are alleviated by. Associated signs and symptoms: Loss of consciousness: the patient experienced no loss of consciousness, Pertinent negatives: weakness. Severity of symptoms: At their worst the symptoms were moderate, in the emergency department the symptoms are unchanged. The patient has experienced similar episodes in the past, chronically. Patient reports has been having back and hip problems for years, on gabapentin, reports worse over the last week. Denies trauma or fall. No fever. Reports chronic pain as well as numbness to feet without acute changes. Reports pain is becoming more constant so came in for evaluation.. Historical: - Allergies: 13:12 No Known Allergies; nj1 - PMHx: 13:12 02 dependent 2LNC PRN; chronic back pain; COPD; osteoarthritis; sciatica; scoliosis; nj1 - PSHx: 13:12 hysterectomy; nj1 - Immunization history:: Client reports receiving the 2nd dose of the Covid vaccine. - Social history:: Smoking status: Patient denies any tobacco usage or history of. - Family history:: not pertinent. - Hospitalizations: : No recent hospitalization is reported. ROS: 13:04 Constitutional: Negative for fever, chills, and weight loss, Abdomen/GI: Negative for rn abdominal pain, nausea, vomiting, diarrhea, and constipation, Back: + low back pain with radiation to legs MS/Extremity: + bilateral hip pain Neuro: Negative for headache, weakness, and seizure. Exam: 13:04 Constitutional: This is a well developed, well nourished patient who is awake, alert, rn and in no acute distress. Cardiovascular: Regular rate and rhythm. No pulse deficits. Respiratory: No increased work of breathing, no retractions or nasal flaring. Abdomen/GI: Soft, non-tender MS/ Extremity: Pulses equal, no cyanosis. Neurovascular intact. Full, normal range of motion. Equal circumference. Neuro: Awake and alert, GCS 15, oriented to person, place, time, and situation. Cranial nerves II-XII grossly intact. Motor strength 5/5 in all extremities. Sensory grossly intact. Vital Signs: 12:54 BP 156 / 88; Pulse 98; Resp 18; Temp 98.1; Pulse Ox 92% on R/A; Weight 58.51 kg; Height nj1 5 ft. 3 in. ; Pain 8/10; 13:15 BP 145 / 74; Pulse 81; Resp 16; Pulse Ox 95% on R/A; db 12:54 Body Mass Index 22.85 (58.51 kg, 160.02 cm) nj1 12:54 Pain Scale: Adult nj1 MDM: 12:55 Patient medically screened. rn 14:02 Differential diagnosis: bursitis, arthritis, strain, Radiculopathy. Data reviewed: rn vital signs, nurses notes, radiologic studies, plain films, and as a result, I will discharge patient. Counseling: I had a detailed discussion with the patient and/or guardian regarding the historical points, exam findings, and any diagnostic results supporting the discharge/admit diagnosis, radiology results, the need for outpatient follow up, to return to the emergency department if symptoms worsen or persist or if there are any questions or concerns that arise at home. Special discussion: I discussed with the patient/guardian in detail that at this point there is no indication for admission to the hospital. It is understood, however, that if the symptoms persist or worsen the patient needs to return immediately for re-evaluation. Based on the history and exam findings, there is no indication for further emergent testing or inpatient evaluation. I discussed with the patient/guardian the need to see the back specialist for further evaluation of the symptoms. 07/24 13:02 Order name: XRAY Lumbar Spine (3 Views); Complete Time: 13:54 rn 07/24 13:02 Order name: XRAY Hip RIGHT 2 view; Complete Time: 13:54 rn 07/24 13:02 Order name: XRAY Hip LEFT 2 view; Complete Time: 13:54 rn Administered Medications: No medications were administered Disposition Summary: 07/24/23 14:03 Discharge Ordered Location: Home rn Problem: chronic rn Symptoms: have improved rn Condition: Stable rn Diagnosis - Osteoarthritis of hip, unspecified rn - Low back pain rn - Intervertebral disc disorders with radiculopathy, lumbosacral region rn Followup: rn - With: Private Physician - When: As needed - Reason: Recheck today's complaints, Re-evaluation by your physician Discharge Instructions: - Discharge Summary Sheet rn - Chronic Back Pain rn - Lumbosacral Radiculopathy rn - Musculoskeletal Pain rn Forms: - Medication Reconciliation Form rn - Thank You Letter rn - Antibiotic rn invasive - Prescription Opioid Use rn - Patient Portal Instructions rn - Leadership Thank You Letter rn Prescriptions: - Diclofenac Sodium 75 mg Oral tablet,delayed release (DR/EC) - take 1 tablet by ORAL route 2 times per day; 12 tablet; Refills: 0, Product rn Selection Permitted - Medrol (Xavier) 4 mg Oral Tablets, Dose Pack - take 1 tablet by ORAL route as directed - follow package instructions; 1 rn packet; Refills: 0, Product Selection Permitted - Cyclobenzaprine 5 mg Oral Tablet - take 1 tablet by ORAL route 3 times per day As needed; 12 tablet; Refills: 0, rn Product Selection Permitted Signatures: Dispatcher [employer] Rey Iyer MD MD rn Sissy Villalpando RN RN nj1
--- NOTE | 2023-07-24 14:04 | ER ---
Nurse's Notes [facility] Name: Carmenza Saldivar Age: 73 yrs Sex: Female : 1950 Arrival Date: 07/24/2023 Time: 12:46 Bed 16 Private MD: Diagnosis: Osteoarthritis of hip, unspecified;Low back pain;Intervertebral disc disorders with radiculopathy, lumbosacral region Presentation: 07/24 12:54 Chief complaint: Patient states: Left hip pain since 2004, getting worse over the past nj1 year. Took her gabapentin today but pain is getting worse. Denies known injury. 12:54 Coronavirus screen: Vaccine status: Patient reports receiving the 2nd dose of the covid nj1 vaccine. Ebola Screen: Patient denies travel to an Ebola-affected area in the 21 days before illness onset. Initial Sepsis Screen: Does the patient meet any 2 criteria? HR > 90 bpm. No. Patient's initial sepsis screen is negative. Does the patient have a suspected source of infection? No. Patient's initial sepsis screen is negative. Risk Assessment: Do you want to hurt yourself or someone else? Patient reports no desire to harm self or others. Onset of symptoms was 2021. 12:54 Method Of Arrival: Wheelchair banner 12:54 Acuity: ROBIN 3 nj1 Historical: - Allergies: 13:12 No Known Allergies; nj1 - PMHx: 13:12 02 dependent 2LNC PRN; chronic back pain; COPD; osteoarthritis; sciatica; scoliosis; nj1 - PSHx: 13:12 hysterectomy; nj1 - Immunization history:: Client reports receiving the 2nd dose of the Covid vaccine. - Social history:: Smoking status: Patient denies any tobacco usage or history of. - Family history:: not pertinent. - Hospitalizations: : No recent hospitalization is reported. Screenin:24 [facility] ED Fall Risk Assessment (Adult) History of falling in the last 3 months, db including since admission No falls in past 3 months (0 pts) Confusion or Disorientation No (0 pts) Intoxicated or Sedated No (0 pts) Impaired Gait No (0 pts) Mobility Assist Device Used No (0 pt) Altered Elimination No (0 pt) Score/Fall Risk Level 0 - 2 = Low Risk Oriented to surroundings, Maintained a safe environment. Abuse screen: Denies threats or abuse. Denies injuries from another. Nutritional screening: No deficits noted. Tuberculosis screening: No symptoms or risk factors identified. Assessment: 13:23 Reassessment: Patient appears in no apparent distress at this time. Patient and/or db family updated on plan of care and expected duration. Pain level reassessed. Patient is alert, oriented x 3, equal unlabored respirations, skin warm/dry/pink. 13:23 Pain: Complains of pain in back, LEFT HIP. db Vital Signs: 12:54 BP 156 / 88; Pulse 98; Resp 18; Temp 98.1; Pulse Ox 92% on R/A; Weight 58.51 kg; Height nj1 5 ft. 3 in. ; Pain 8/10; 13:15 BP 145 / 74; Pulse 81; Resp 16; Pulse Ox 95% on R/A; db 12:54 Body Mass Index 22.85 (58.51 kg, 160.02 cm) nj1 12:54 Pain Scale: Adult banner ED Course: 12:49 Patient arrived in ED. mg5 12:54 Rey Villa MD is Attending Physician. rn 12:57 Nicole Sanchez, RN is Primary Nurse. db 13:12 Triage completed. nj1 13:13 Arm band placed on. nj1 13:40 XRAY Lumbar Spine (3 Views) In Process Unspecified. EDMS 13:40 XRAY Hip RIGHT 2 view In Process Unspecified. EDMS 13:40 XRAY Hip LEFT 2 view In Process Unspecified. EDMS Administered Medications: No medications were administered Outcome: 14:03 Discharge ordered by . rn 14:18 Patient left the ED. Signatures: Dispatcher [employer] EDMS Rey Villa MD MD rn Baxter, Heather RN RN Nicole Sanchez, RN RN Sissy Boothe RN RN banner Marlena Deluca 5
[2023-07-24 14:31] VITALS: TEMP 98.1
[2023-07-24 14:32] VITALS: BP 145/74; O2SAT 95
== END 2023-07-24 14:18 | disposition home or self-care (01) ==
LOC: ER 12:46
DX: M16.12 Unilateral primary osteoarthritis, left hip (principal); M51.17 Intervertebral disc disorders with radiculopathy, lumbosacral region; M54.50 Low back pain, unspecified; J44.9 Chronic obstructive pulmonary disease, unspecified; Z99.81 Dependence on supplemental oxygen
CPT/HCPCS: 72100; 99281

== ENCOUNTER 2024-02-27 13:20 | Inpatient (IN) | payer OTHER ==
[2024-02-27 14:00] LABS: Absolute Lymphocytes (CBC) 0.5 K/uL (0.7-4.9); Absolute Monocytes 1.2 K/uL (0.1-1.3); Absolute Neutrophil 24.2 K/uL (1.8-8.0); Basophils % 0.1 % (0-1.3); Eosinophils % 0.1 % (0-4.4); Hematocrit 49.4 % (36.0-45.0); Hemoglobin 16.7 g/dL (12.0-15.0); Lymphocytes % 1.8 % (15.3-44.8); MCH 31.1 pg (27.0-35.0); MCHC 33.8 g/dL (32.0-36.0); MCV 91.9 fL (80-100); MPV 8.8 fL (7.6-11.3); Monocytes % 4.5 % (3.3-12.3); Neutrophils % 93.5 % (41.7-73.7); Nucleated Red Blood Cells % 0.1 % (0-0); Platelets 284 thou/uL (152-406); RBC Red Blood Cell Count 5.38 M/uL (3.86-4.86); Red Cell Distribution Width 15.7 % (12.1-15.2)
[2024-02-27 14:18] LABS: PT Prothrombin Time 11.8 SECONDS (9.5-12.5); Protime INR 1.07
[2024-02-27 14:20] LABS: Albumin 3.9 g/dL (3.4-5.0); Anion Gap 8.5 mEq/L (5.0-15.0); Bilirubin Direct 0.2 mg/dL (0-0.2); Bilirubin Indirect, Calculated 0.6 mg/dL (0.2-0.8); Bilirubin Total 0.8 mg/dL (0.2-1.0); Globulin 3.8 g/dL (2.3-3.5); Magnesium 1.9 mg/dL (1.6-2.4); Potassium 3.5 mEq/L (3.5-5.1); Protein, Total 7.7 g/dL (6.4-8.2)
[2024-02-27 14:21] LABS: SARS-CoV-2 Antigen CONTROL BLUE LINE VIS/BG OK; SARS-CoV-2 Antigen Rapid Res Negative (Negative)
[2024-02-27] MEDS ORDERED: ONDANSETRON 4 MG/2 ML VIAL ONE (14:24)
[2024-02-27] MEDS ORDERED: IPRATROPIUM BROM 0.5MG/2.5ML ONE (14:24)
[2024-02-27] MEDS ORDERED: LEVALBUTEROL 1.25 MG/3 ML NEB ONE ×2 (14:24→19:00)
[2024-02-27] MEDS ORDERED: MORPHINE 2 MG/ML SYR ONE (14:25)
[2024-02-27] MEDS ORDERED: NA CHLORIDE 0.9% 1,000 ML ONE (14:25)
[2024-02-27] MEDS ORDERED: Levofloxacin500mg IV 500 MG/100 ML BAG IV ONE (14:25)
--- NOTE | 2024-02-27 14:39 | RAD REPORT ---
EXAM DESCRIPTION: RAD - Chest Single View - 02/27/2024 2:26 pm CLINICAL HISTORY: Cough;COPD COMPARISON: Chest Single View dated 01/03/2023 FINDINGS: Lines: None. Lungs: Airspace opacities, predominantly at the left lung base laterally noted. Pleural: No significant pleural effusions or pneumothorax. Cardiac: The heart size is within normal limits. Mediastinum: Within normal limits. Bones: No acute fractures. Other: None IMPRESSION: Basilar airspace disease, left greater than right, concerning for pneumonia. A chest CT is pending.
[2024-02-27] MEDS ORDERED: PIPERACIL/TAZO 3.375 GM VIAL IV ONE (15:05)
[2024-02-27] MEDS ORDERED: HYDROMORPHONE HCL 0.5 MG/0.5 ML INJ ONE (15:05)
[2024-02-27] MEDS ORDERED: NA CHLORIDE 0.9% 100 ML ONE (15:05)
--- NOTE | 2024-02-27 15:15 | ER ---
Nurse's Notes [facility] Name: Carmenza Saldivar Age: 73 yrs Sex: Female : 1950 Arrival Date: 02/27/2024 Time: 13:20 Bed 6 Private MD: Diagnosis: COPD/ Chronic obstructive pulmonary disease with (acute) exacerbation;Hypoxemia;Pneumonia due to other specified bacteria-bilateral lower lobe;Elevated white blood cell count-25K Presentation: 02/26 13:20 Chief complaint: Patient states: Shortness of breath, chest/back pains ever since she nj1 was discharged on Thursday from [facility] in [place]. Wears 3LPM O2 via NC. Cough, congestion. 13:20 Onset of symptoms was January 2024. nj1 13:39 Coronavirus screen: Client presents with at least one sign or symptom that may indicate iw coronavirus-19. Ebola Screen: Patient negative for fever greater than or equal to 101.5 degrees Fahrenheit, and additional compatible Ebola Virus Disease symptoms Patient denies exposure to infectious person. Patient denies travel to an Ebola-affected area in the 21 days before illness onset. No symptoms or risks identified at this time. Initial Sepsis Screen: Does the patient meet any 2 criteria? RR > 20 per min. HR > 90 bpm. Does the patient have a suspected source of infection? No. Patient's initial sepsis screen is negative. Risk Assessment: Do you want to hurt yourself or someone else? Patient reports no desire to harm self or others. 13:39 Method Of Arrival: Wheelchair iw 13:39 Acuity: ROBIN 2 iw Triage Assessment: 20:20 Respiratory: Onset: The symptoms/episode began/occurred. jb4 Historical: - Allergies: 14:02 No Known Allergies; iw - PMHx: 13:40 02 dependent 2LNC PRN; chronic back pain; COPD; osteoarthritis; sciatica; scoliosis; iw - PSHx: 13:40 hysterectomy; iw - Immunization history:: Client reports receiving the 2nd dose of the Covid vaccine. - Infectious Disease History:: Denies. - Social history:: Smoking status: Patient/guardian denies using tobacco, but has a distant history of tobacco abuse. Screenin:49 [facility] ED Fall Risk Assessment (Adult) History of falling in the last 3 months, iw including since admission Yes- single mechanical fall (1 pt) Confusion or Disorientation No (0 pts) Intoxicated or Sedated No (0 pts) Impaired Gait No (0 pts) Mobility Assist Device Used No (0 pt) Altered Elimination No (0 pt) Score/Fall Risk Level 0 - 2 = Low Risk. Abuse screen: Denies threats or abuse. Denies injuries from another. Nutritional screening: No deficits noted. Tuberculosis screening: No symptoms or risk factors identified. Assessment: 13:25 General: Appears uncomfortable, Behavior is calm, cooperative. Pain: Complains of pain iw in back and chest. Neuro: Level of Consciousness is awake, alert, obeys commands, Oriented to person, place, time, situation, Moves all extremities. Cardiovascular: Reports chest pain, shortness of breath, Patient's skin is warm and dry. Rhythm is regular. Respiratory: Airway is patent Respiratory effort is even, labored, Respiratory pattern is regular, symmetrical, Breath sounds are coarse bilaterally. Breath sounds with wheezes bilaterally. GI: Abdomen is non-distended. Derm: Skin is intact, is fragile, is thin. Musculoskeletal: Range of motion: intact in all extremities. 14:40 Reassessment: pt unable to tolerate CT scan at this time. iw 15:33 Reassessment: pt re-medicated for pain , feels like she will be able to tolerate CT iw now, mri special procedures technologist notified. 16:35 Reassessment: Patient appears in no apparent distress at this time. Patient and/or iw family updated on plan of care and expected duration. Pain level reassessed. Patient is alert, oriented x 3, equal unlabored respirations, skin warm/dry/pink. Patient states feeling better. Patient states symptoms have improved. 19:30 Reassessment: Pt noted to Desat after being taken of neb treatment. Crackles noted SHEY. jb4 Dr. Diggs notified, RT called. Pt placed on NRB. 20:21 Reassessment: Patient appears in no apparent distress at this time. Patient and/or jb4 family updated on plan of care and expected duration. Pain level reassessed. Patient is alert, oriented x 3, equal unlabored respirations, skin warm/dry/pink. Report breathing more easily and that normal sats are 88-90% Patient states feeling better. Patient states symptoms have improved. Vital Signs: 13:25 BP 167 / 74; Pulse 104; Resp 30; Temp 98.4(O); Pulse Ox 85% on 3 lpm NC; Weight 61.23 nj1 kg (R); Height 5 ft. 3 in. ; Pain 10/10; 13:40 BP 109 / 88; Pulse 93; Resp 24 S; Pulse Ox 91% on 6 lpm NC; iw 15:32 BP 141 / 86; Pulse 94; Resp 24 S; Pulse Ox 87% on 4 lpm NC; iw 19:45 BP 144 / 76; Pulse 94; Resp 24; Pulse Ox 92% on 5 lpm NC; jb4 13:25 Body Mass Index 23.91 (61.23 kg, 160.02 cm) nj1 13:25 Pain Scale: Adult nj1 ED Course: 13:21 Patient arrived in ED. ra3 13:25 Oxygen administration via nasal cannula \T\ 5L/min. nj1 13:26 Azalea Espino, RN is Primary Nurse. iw 13:33 EKG done, by ED staff, reviewed by Nicolas Tyson MD. hb 13:35 Client placed on continuous cardiac and pulse oximetry monitoring. NIBP monitoring hb applied. vehicle monitor technician on. Pulse ox on. NIBP on. 13:36 Nicolas Tyson MD is Attending Physician. dov 13:40 Triage completed. iw 13:48 Initial lab(s) drawn, by me, sent to lab. First set of blood cultures drawn. iw 13:53 Inserted. hb 13:53 Inserted saline lock: 20 gauge in right antecubital area, using aseptic technique. iw Blood collected. 14:28 XRAY Chest (1 view) In Process Unspecified. EDMS 15:11 Mehnaz Natarajan MD is Hospitalizing Provider. dov 15:58 CT Chest For PE Angio In Process Unspecified. EDMS 20:20 No provider procedures requiring assistance completed. Patient admitted, IV remains in jb4 place. 20:20 Patient has correct armband on for positive identification. Call light in reach. Side jb4 rails up X 1. Provided Education on: Plan of Care. Administered Medications: 02/27 07:46 Discontinued: ns 0.9% 1000 ml IV at 1 bolus Per protocol; 1000 mL bolus iw 02/26 14:25 Drug: Famotidine IVP 20 mg IVP once; dilute with 10 mL 0.9% NaCl; give over 2 minutes iw Route: IVP; Site: right antecubital; 15:30 Follow up: Response: No adverse reaction iw 14:50 Drug: Ondansetron IVP 4 mg IVP once; over 2 minutes Route: IVP; Site: right antecubital;iw 15:50 Follow up: Response: No adverse reaction iw 14:50 Drug: morphine IVP or IV 2 mg IVP once over 4 mins Route: IVP; Infused Over: 4 mins; iw Site: right antecubital; 16:00 Follow up: Response: No adverse reaction iw 15:08 Drug: NS 0.9% IV 500 ml IV at bolus once Route: IV; Rate: bolus; Site: right iw antecubital; 16:08 Follow up: IV Status: Completed infusion iw 15:08 Drug: Levalbuterol Inhalation 3.75 mg Inhalation once Route: Inhalation; iw 15:08 Drug: Ipratropium Inhalation Aerosol 0.5 mg Inhalation once Route: Inhalation; iw 15:20 Drug: HYDROmorphone IVP 0.5 mg IVP once Route: IVP; Site: right antecubital; iw 16:00 Follow up: Response: No adverse reaction; Pain is decreased iw 15:31 Drug: levofloxacin IVPB 500 mg 100 ml IVPB once over 60 mins Volume: 100 ml; Route: iw IVPB; Infused Over: 60 mins; Site: right antecubital; 16:35 Follow up: IV Status: Completed infusion iw 16:25 Drug: Piperacillin-Tazobactam IVPB 3.375 grams IVPB once over 60 mins; (mix in NS 100 iw mL) Route: IVPB; Infused Over: 60 mins; Site: left wrist; 17:35 Follow up: IV Status: Completed infusion iw 16:25 Not Given (Patient Refused): ondansetron 4 mg IVP once; over 2 minutes iw 16:25 Drug: NS 0.9% IV 1000 ml IV at 1 bolus Per protocol; 1000 mL bolus Route: IV; Rate: 1 iw bolus; Site: right antecubital; 19:07 Drug: Levalbuterol Inhalation 1.25 mg Inhalation once Route: Inhalation; iw 19:07 Not Given (pt admitted): hydromorphone0.5 mg IVP once iw 20:08 Not Given (Physician Discretion): ns 0.9% 1000 ml IV at 125 ml/hr continuous jb4 Medication: 14:50 VIS not applicable for this client. iw Outcome: 15:14 Decision to Hospitalize by Provider. dov 20:19 Admitted to Tele accompanied by tech, via stretcher, room 415, with oxygen, with chart, jb4 Report called to ANAI Hussein 20:19 Condition: stable 20:19 Discharge instructions given to patient, Instructed on the need for admit, Demonstrated understanding of instructions, 20:22 Patient left the ED. jb4 Signatures: Dispatcher [employer] EDNV Nicolas Tyson MD MD cha Williams, Irene, RN RN Ana Gilliam RN RN Eder Raymond RN RN jb4 Sissy Villalpando RN RN kai1 Jacqueline Magaña ra3 Corrections: (The following items were deleted from the chart) 13:53 11:35 Client placed on continuous cardiac and pulse oximetry monitoring. NIBP hb monitoring applied. vehicle monitor technician on. Pulse ox on. NIBP on. hb
--- NOTE | 2024-02-27 15:15 | EDPHYS ---
Physician Documentation [facility] Name: Carmenza Saldivar Age: 73 yrs Sex: Female : 1950 Arrival Date: 02/27/2024 Time: 13:20 Bed 6 Private MD: DANIEL Physician Nicolas Tyson HPI: 02/26 15:06 This 73 yrs old Female presents to ER via Wheelchair with complaints of dov Shortness Of Breath, Chest Pain. 15:06 The patient has shortness of breath with light activity. Onset: The symptoms/episode dov began/occurred 1 week(s) ago. Duration: The symptoms are continuous, and are steadily getting worse. The patient's shortness of breath is aggravated by coughing, supine position, talking, walking, is alleviated by elevating head, inhaler, nebulizer treatment, pursed lip breathing, rest, application of supplemental oxygen. Associated signs and symptoms: Pertinent positives: non-productive cough. Severity of symptoms: At their worst the symptoms were moderate in the emergency department the symptoms are unchanged. The patient has experienced similar episodes in the past, several times, multiple times. Historical: - Allergies: 14:02 No Known Allergies; iw - PMHx: 13:40 02 dependent 2LNC PRN; chronic back pain; COPD; osteoarthritis; sciatica; scoliosis; iw - PSHx: 13:40 hysterectomy; iw - Immunization history:: Client reports receiving the 2nd dose of the Covid vaccine. - Infectious Disease History:: Denies. - Social history:: Smoking status: Patient/guardian denies using tobacco, but has a distant history of tobacco abuse. ROS: 15:08 Constitutional: Negative for fever, chills, and weight loss, Eyes: Negative for injury, dov pain, redness, and discharge, ENT: Negative for injury, pain, and discharge, Neck: Negative for injury, pain, and swelling, Cardiovascular: Negative for chest pain, palpitations, and edema, Abdomen/GI: Negative for abdominal pain, nausea, vomiting, diarrhea, and constipation, Back: Negative for injury and pain, : Negative for injury, bleeding, discharge, and swelling, MS/Extremity: Negative for injury and deformity, Skin: Negative for injury, rash, and discoloration, Neuro: Negative for headache, weakness, numbness, tingling, and seizure, Psych: Negative for depression, anxiety, suicide ideation, homicidal ideation, and hallucinations, Allergy/Immunology: Negative for hives, rash, and allergies, Endocrine: Negative for neck swelling, polydipsia, polyuria, polyphagia, and marked weight changes, Hematologic/Lymphatic: Negative for swollen nodes, abnormal bleeding, and unusual bruising, 15:08 Respiratory: Positive for cough, shortness of breath, wheezing, inspiratory, expiratory, Exam: 15:08 Constitutional: This is a well developed, well nourished patient who is awake, alert, dov and in no acute distress. Head/Face: Normocephalic, atraumatic. Eyes: Pupils equal round and reactive to light, extra-ocular motions intact. Lids and lashes normal. Conjunctiva and sclera are non-icteric and not injected. Cornea within normal limits. Periorbital areas with no swelling, redness, or edema. ENT: Nares patent. No nasal discharge, no septal abnormalities noted. Tympanic membranes are normal and external auditory canals are clear. Oropharynx with no redness, swelling, or masses, exudates, or evidence of obstruction, uvula midline. Mucous membranes moist. Neck: Trachea midline, no thyromegaly or masses palpated, and no cervical lymphadenopathy. Supple, full range of motion without nuchal rigidity, or vertebral point tenderness. No Meningismus. Chest/axilla: Normal chest wall appearance and motion. Nontender with no deformity. No lesions are appreciated. Cardiovascular: Regular rate and rhythm with a normal S1 and S2. No gallops, murmurs, or rubs. Normal PMI, no JVD. No pulse deficits. Abdomen/GI: Soft, non-tender, with normal bowel sounds. No distension or tympany. No guarding or rebound. No evidence of tenderness throughout. Back: No spinal tenderness. No costovertebral tenderness. Full range of motion. Female : Normal external genitalia. Skin: Warm, dry with normal turgor. Normal color with no rashes, no lesions, and no evidence of cellulitis. MS/ Extremity: Pulses equal, no cyanosis. Neurovascular intact. Full, normal range of motion. Neuro: Awake and alert, GCS 15, oriented to person, place, time, and situation. Cranial nerves II-XII grossly intact. Motor strength 5/5 in all extremities. Sensory grossly intact. Cerebellar exam normal. Normal gait. Psych: Awake, alert, with orientation to person, place and time. Behavior, mood, and affect are within normal limits. 15:08 ECG was reviewed by the Attending Physician. Vital Signs: 13:25 BP 167 / 74; Pulse 104; Resp 30; Temp 98.4(O); Pulse Ox 85% on 3 lpm NC; Weight 61.23 nj1 kg (R); Height 5 ft. 3 in. ; Pain 10/10; 13:40 BP 109 / 88; Pulse 93; Resp 24 S; Pulse Ox 91% on 6 lpm NC; iw 15:32 BP 141 / 86; Pulse 94; Resp 24 S; Pulse Ox 87% on 4 lpm NC; iw 19:45 BP 144 / 76; Pulse 94; Resp 24; Pulse Ox 92% on 5 lpm NC; jb4 13:25 Body Mass Index 23.91 (61.23 kg, 160.02 cm) nj1 13:25 Pain Scale: Adult nj1 MDM: 13:36 Patient medically screened. dov 15:09 Differential diagnosis: Anxiety Reaction asthma, Bronchitis CHF exacerbation, Chronic dov Obstructive Pulmonary Disease abnormal EKG, acute myocardial infarction, acute pericarditis, anxiety, chest wall pain, congestive heart failure costochondritis, acute asthma, exercise-induced asthma, reactive airway, CHF, URI, esophagitis, myocarditis, pancreatitis, peptic ulcer disease, pneumonia, pneumothorax, pulmonary embolus, stable angina, thoracic aortic disection, unstable angina, Myocardial Infarction pneumonia, Pneumothorax pulmonary edema, Pulmonary Embolism reactive airway disease, Unstable Angina. Antibiotic administration: Levaquin given, zosyn. HEART Score: History: Slightly Suspicious (0), ECG: Non specific repolarization disturbance / LBTB / PM (1), Age: > or = 65 years (2), Risk Factors: > or = 3 Risk factors for atherosclerotic disease (2), [Hypercholesterolemia] [+ Family HX] [Obesity] Troponin: < or = 1 x Normal Limit (0). The patient was not given aspirin in the Emergency Department. Patient reports taking aspirin within the past 24 hours. Differential Diagnosis: Obstructed Airway Bronchitis Influenza Upper Respiratory Infection Sinusitis Pharyngitis Asthma Exacerbation Viral Syndrome Pneumonia. LANI Risk Score: 1 - patient's age is greater or equal to 65 years, 1 - Three or more CAD risk factors, 1 - ASA use in past 7 days, TOTAL SCORE = 3. Immunization status: Pneumococcal vaccine: within last 5 years. Influenza vaccine: within last 5 years. Data reviewed: vital signs, nurses notes, lab test result(s), EKG, radiologic studies, CT scan, plain films. Consideration of Admission/Observation Patient was admitted/placed on observation. Escalation of care including admission/observation considered. I considered the following discharge prescriptions or medication management in the emergency department Medications were administered in the Emergency Department. See JAN. 02/26 13:46 Order name: Basic Metabolic Panel; Complete Time: 15:02 [facility] 02/26 13:46 Order name: CBC with Diff [facility] 02/26 13:46 Order name: LFT's; Complete Time: 15:02 [facility] 02/26 13:46 Order name: Magnesium; Complete Time: 15:02 [facility] 02/26 13:46 Order name: NT PRO-BNP; Complete Time: 15:02 [facility] 02/26 13:46 Order name: PT-INR; Complete Time: 15:02 [facility] 02/26 13:46 Order name: Troponin HS; Complete Time: 15:02 [facility] 02/26 13:46 Order name: Blood Culture Adult (2) [facility] 02/26 13:46 Order name: Lactate w/ 2H reflex if indic.; Complete Time: 15:02 [facility] 02/26 13:46 Order name: Flu; Complete Time: 15:02 [facility] 02/26 13:46 Order name: SARS RAPID; Complete Time: 15:02 [facility] 02/26 17:54 Order name: Procalcitonin [facility] 02/26 17:54 Order name: CBC with Automated Diff [facility] 02/26 17:54 Order name: CBC with Automated Diff ED[facility] 02/26 17:54 Order name: Comprehensive Metabolic Panel [facility] 02/26 17:54 Order name: Comprehensive Metabolic Panel [facility] 02/26 17:54 Order name: Lactate w/ 2H reflex if indic. [facility] 02/26 17:54 Order name: Lactate w/ 2H reflex if indic. [facility] 02/26 17:54 Order name: Lipid Profile [facility] 02/26 17:54 Order name: Lipid Profile [facility] 02/26 17:54 Order name: Magnesium [facility] 02/26 17:54 Order name: Magnesium [facility] 02/26 17:54 Order name: NT PRO-BNP [facility] 02/26 17:54 Order name: NT PRO-BNP [facility] 02/26 17:54 Order name: Phosphorus [facility] 02/26 17:54 Order name: Phosphorus [facility] 02/26 17:54 Order name: Protime (+INR) [facility] 02/26 17:54 Order name: Protime (+INR) [facility] 02/26 17:54 Order name: PTT, Activated Partial Thromb [facility] 02/26 17:54 Order name: PTT, Activated Partial Thromb [facility] 02/26 17:54 Order name: Troponin High Sensitivity [facility] 02/26 17:54 Order name: Troponin High Sensitivity [facility] 02/26 18:27 Order name: CBC Smear Scan [facility] 02/26 13:46 Order name: XRAY Chest (1 view); Complete Time: 15:02 [facility] 02/26 13:46 Order name: CT Chest For PE Angio [facility] 02/26 13:46 Order name: EKG; Complete Time: 13:46 [facility] 02/26 17:54 Order name: CONS Physician Consult [facility] 02/26 13:46 Order name: Cardiac monitoring; Complete Time: 13:54 [facility] 02/26 13:46 Order name: EKG - Nurse/Tech; Complete Time: 13:54 [facility] 02/26 13:46 Order name: IV Saline Lock; Complete Time: 13:54 [facility] 02/26 13:46 Order name: Labs collected and sent; Complete Time: 13:54 [facility] 02/26 13:46 Order name: O2 Per Protocol; Complete Time: 13:54 [facility] 02/26 13:46 Order name: O2 Sat Monitoring; Complete Time: 13:54 [facility] 02/26 13:46 Order name: IV Saline Lock - Large Bore; Complete Time: 13:54 [facility] EC:08 Rate is 95 beats/min. Rhythm is regular. QRS [place] is Normal. CT interval is normal. QRS dov interval is normal. QT interval is normal. No Q waves. T waves are Normal. No ST changes noted. Clinical impression: NSR w/ Non-specific ST/T Changes and No evidence of ischemia. Interpreted by me. Reviewed by me. Administered Medications: 02/27 07:46 Discontinued: ns 0.9% 1000 ml IV at 1 bolus Per protocol; 1000 mL bolus iw 02/26 14:25 Drug: Famotidine IVP 20 mg IVP once; dilute with 10 mL 0.9% NaCl; give over 2 minutes iw Route: IVP; Site: right antecubital; 15:30 Follow up: Response: No adverse reaction iw 14:50 Drug: Ondansetron IVP 4 mg IVP once; over 2 minutes Route: IVP; Site: right antecubital;iw 15:50 Follow up: Response: No adverse reaction iw 14:50 Drug: morphine IVP or IV 2 mg IVP once over 4 mins Route: IVP; Infused Over: 4 mins; iw Site: right antecubital; 16:00 Follow up: Response: No adverse reaction iw 15:08 Drug: NS 0.9% IV 500 ml IV at bolus once Route: IV; Rate: bolus; Site: right iw antecubital; 16:08 Follow up: IV Status: Completed infusion iw 15:08 Drug: Levalbuterol Inhalation 3.75 mg Inhalation once Route: Inhalation; iw 15:08 Drug: Ipratropium Inhalation Aerosol 0.5 mg Inhalation once Route: Inhalation; iw 15:20 Drug: HYDROmorphone IVP 0.5 mg IVP once Route: IVP; Site: right antecubital; iw 16:00 Follow up: Response: No adverse reaction; Pain is decreased iw 15:31 Drug: levofloxacin IVPB 500 mg 100 ml IVPB once over 60 mins Volume: 100 ml; Route: iw IVPB; Infused Over: 60 mins; Site: right antecubital; 16:35 Follow up: IV Status: Completed infusion iw 16:25 Drug: Piperacillin-Tazobactam IVPB 3.375 grams IVPB once over 60 mins; (mix in NS 100 iw mL) Route: IVPB; Infused Over: 60 mins; Site: left wrist; 17:35 Follow up: IV Status: Completed infusion iw 16:25 Not Given (Patient Refused): ondansetron 4 mg IVP once; over 2 minutes iw 16:25 Drug: NS 0.9% IV 1000 ml IV at 1 bolus Per protocol; 1000 mL bolus Route: IV; Rate: 1 iw bolus; Site: right antecubital; 19:07 Drug: Levalbuterol Inhalation 1.25 mg Inhalation once Route: Inhalation; iw 19:07 Not Given (pt admitted): hydromorphone0.5 mg IVP once iw 20:08 Not Given (Physician Discretion): ns 0.9% 1000 ml IV at 125 ml/hr continuous jb4 Disposition Summary: 02/27/24 15:14 Hospitalization Ordered Notes: Hospitalization Status: Inpatient Admission dov Provider: Mehnaz Natarajan cha Location: Telemetry/MedSurg (Inpatient) dov Condition: Fair dov Problem: new dov Symptoms: have improved dov Bed/Room Type: Standard dov Room Assignment: 415(02/27/24 18:02) rv1 Diagnosis - COPD/ Chronic obstructive pulmonary disease with (acute) exacerbation dov - Hypoxemia dov - Pneumonia due to other specified bacteria - bilateral lower lobe dov - Elevated white blood cell count - 25K dov Forms: - Medication Reconciliation Form dov - SBAR form dov - Leadership Thank You Letter dov Signatures: Dispatcher [employer] EDMS Nicolas Tyson MD MD cha Williams, Irene RN Emilia Crespo rv1 Sissy Villalpando RN RN nj1 Eder Raymond RN jb4 Corrections: (The following items were deleted from the chart) 13:46 13:46 BASIC METABOLIC PANEL+C.LAB.BRZ ordered. EDMS EDMS 13:46 13:46 CBC+H.LAB.BRZ ordered. EDMS EDMS 13:46 13:46 HEPATIC FUNCTION+C.LAB.BRZ ordered. EDMS EDMS 13:46 13:46 MAGNESIUM+C.LAB.BRZ ordered. EDMS EDMS 13:46 13:46 PROBNP+C.LAB.BRZ ordered. EDMS EDMS 13:46 13:46 PROTIME (+INR)+COAG.LAB.BRZ ordered. EDMS EDMS 13:46 13:46 Troponin High Sensitivity+C.LAB.BRZ ordered. EDMS EDMS 13:46 13:46 BLOOD CULTURE*+BA.LAB.BRZ ordered. EDMS EDMS 13:46 13:46 LACTATE+C.LAB.BRZ ordered. EDMS EDMS 13:46 13:46 Influenza Screen (A \T\ B)+BA.LAB.BRZ ordered. EDMS EDMS 13:46 13:46 SARS-COV-2 Antigen Rapid+I.LAB.BRZ ordered. EDMS EDMS 18:02 15:14 dov rv1
--- NOTE | 2024-02-27 15:57 | P.HP ---
Certification for Inpatient Patient admitted to: Inpatient With expected LOS: >2 Midnights Patient will require the following post-hospital care: None Practitioner: I am a practitioner with admitting privileges, knowledge of patient current condition, hospital course, and medical plan of care. Services: Services provided to patient in accordance with Admission requirements found in Title 42 Section 412.3 of the Code of Federal Regulations Patient History Date of Service: 02/27/24 Reason for admission: Shortness of breath History of Present Illness: Patient is a 73-year-old female who presents to the emergency room with shortness of breath. She was recently discharged from [facility] with pneumonia. She was treated for over a week, and at that time she was also found to have diastolic dysfunction. Her left ventricular end-diastolic pressures were elevated the patient was started on low-dose diuretics. Patient had a cardiac catheterization with a 50% lesion of her left circumflex. Otherwise, her coronary arteries were unremarkable. She had no interventions performed at that time. Patient was discharged home, but she states that she was still short of breath and not feeling like herself. She has been home for the last month and she really has not been able to do much of anything. She wakes up and goes to her couch and she tends to rest third through the day. She really does not get outside the house over the last month because she gets so short of breath and fatigue. Her last echocardiogram was a month ago with a ejection fraction of 50 to 55%. Her left ventricular end-diastolic pressures were in the 8s. Since patient been at home she has been feeling really weak and short of breath. She came in with a white blood cell count of 25,000. She has been coughing up a lot of purulent secretions. Patient with a degree of polycythemia. CT of the chest is pending. Patient be admitted for inpatient hospitalization. Allergies No Known Allergies Allergy (Verified 10/03/15 17:13) Home Medications: ALPRAZolam [Xanax*] 0.25 mg PO TID PRN 10/03/15 Gabapentin [Neurontin*] 400 mg PO TIDP PRN 01/03/23 Umeclidinium Brm/Vilanterol Tr [Anoro Ellipta 62.5-25 Mcg INH] 2 puff IH DAILY 01/03/23 methocarbamoL [Robaxin*] 500 mg PO TIDP PRN 01/03/23 Aspirin Chewable [Aspirin Chewable*] 81 mg PO DAILY tab.chew 01/06/23 levoFLOXacin [Levaquin*] 750 mg PO DAILY 10 Days #10 tab 01/06/23 predniSONE [Prednisone*] 20 mg PO BID 5 Days #10 tab 01/06/23 - Past Medical/Surgical History Diabetic: No -: Sciatica -: Scoliosis -: COPD -: Hysterectomy - Family History Father Medical History: Lung disease, Blood disorders, Other (see notes) Notes: PAD Mother Medical History: Lung disease Brother Medical History: Lung disease Notes: COPD Sister Medical History: Cancer Notes: Stomach - Social History Smoking Status: Former smoker Alcohol use: No CD- Drugs: Yes Caffeine use: Yes Review of Systems 10-point ROS is otherwise unremarkable Physical Examination - Vital Signs Temperature: 98 F Blood Pressure: 140/80 Pulse: 80 Respirations: 19 Pulse Ox (%): 95 - Physical Exam General: Alert, In no apparent distress, Oriented x3 HEENT: Atraumatic, PERRLA, Mucous membr. moist/pink, EOMI, Sclerae nonicteric Neck: Supple, 2+ carotid pulse no bruit, No LAD, Without JVD or thyroid abnormality Respiratory: Diminished, Expiratory wheezes Cardiovascular: Regular rate/rhythm, Normal S1 S2, Systolic murmur Gastrointestinal: Normal bowel sounds, Soft and benign, Non-distended, No tenderness Musculoskeletal: No clubbing, No swelling, No tenderness Integumentary: No rashes Neurological: Normal gait, Normal speech, Normal tone, Sensation intact, Cranial nerves 3-12 intact, Normal affect, Abnormal strength Lymphatics: No axilla or inguinal lymphadenopathy - Studies Laboratory Data (last 24 hrs) 02/27/24 02/27/24 02/27/24 13:48 13:48 13:48 WBC 25.90 H Hgb 16.7 H Hct 49.4 H Plt Count 284 PT 11.8 INR 1.07 Sodium 136 Potassium 3.5 BUN 21 H Creatinine 0.66 Glucose 102 Magnesium 1.9 Total Bilirubin 0.8 AST 23 ALT 33 Alkaline Phosphatase 87 Microbiology Data (last 24 hrs): 02/27/24 13:59 Nasopharnyx Influenza Type A Antigen Screen - Final 02/27/24 13:59 Nasopharnyx Influenza Type B Antigen Screen - Final Assessment & Plan - Problems (Diagnosis) (1) COPD with acute exacerbation Current Visit: No Status: Acute (2) (HFpEF) heart failure with preserved ejection fraction Current Visit: Yes Status: Acute (3) Bronchiectasis Current Visit: No Status: Acute (4) Pulmonary Mycobacterium avium complex (MAC) infection Current Visit: No Status: Acute - Plan Plan: 1. Patient with COPD with acute exacerbation; continue with nebs, steroids, and antibiotics. Patient has a history of MAC infection. Will go ahead and treat accordingly and get pulmonary consultation. Patient on 3 L of oxygen at home. He had will continue with 3 L at this time. Patient has some purulent mucus production. She will get long-acting beta agonist along with the Atrovent treatments. Albuterol as needed. Continue with IV antibiotic therapy. 2. HFpEF; continue with gentle diuresing. Recent echocardiogram with ejection fraction 50 to 55%. Continue with cardiac meds. BNP is normal 3. Secondary polycythemia; most likely related light of COPD 4. GI DVT prophylax Discharge Plan: Home Plan to discharge in: Greater than 2 days - Advance Directives Does patient have a Living Will: No Does patient have a Durable POA for Healthcare: No - Code Status/Comfort Care Code Status Assessed: Yes Code Status: Full Code Critical Care: No Time Spent Managing PTS Care (In Minutes): 45
--- NOTE | 2024-02-27 16:15 | RAD REPORT ---
EXAM DESCRIPTION: CT - Chest For Pe Angio - 02/27/2024 3:56 pm CLINICAL HISTORY: Chest pain;Cough;COPD;Dyspnea COMPARISON: Angio Aorta For Dissection dated 01/03/2023 TECHNIQUE: Dynamically enhanced axial 3 mm thick images of the chest were obtained during administra tion of <100> mL Isovue 370 IV contrast. Coronal and oblique reconstruction images were generated and reviewed. Exam utilizes a protocol for optimal evaluation of pulmonary arterial tree. Maximum intensity projections 3D imaging was utilized All CT scans are performed using dose optimization technique as appropriate and may include automated exposure control or mA/KV adjustment according to patient size. FINDINGS: Chest Wall: No suspicious thyroid nodules or pathologic lymphadenopathy. Lungs: Consolidative airspace disease present in the anterior basal segment of the left lower lobe an d to lesser extent the lingula and right middle lobe. Pleura: No significant effusions or pneumothorax. Mediastinum/pa: No pathologic lymphadenopathy. Pulmonary arteries/Aorta: No filling defect identified. No aortic aneurysm. Enlargement of main pulmo nary artery could indicate pulmonary artery hypertension. . Heart: No significant pericardial effusion. Normal heart size. Mild coronary artery calcifications. Upper abdomen: No acute abnormality.Left nephrolithiasis. Bones: T6 and T7 compression fractures with approximately 20% and 30% loss of height, respectively, a re favored subacute. They are new since 01/03/2023. IMPRESSION: Negative for pulmonary embolism. Lower lung airspace disease, predominantly at the left lower lobe and lingula, concerning for pneumonia. Radiographic follow-up is recommended to ensure res olution. T6 and T7 compression fractures which are new since 01/03/2023. These are favored subacute however vu ggest correlating with patient's site of pain as acute compression fracture not totally excluded. MRI could better establish acuity if clinically indicated.
[2024-02-27] MEDS ORDERED: ONDANSETRON 4 MG/2 ML VIAL IV PRN (17:47)
[2024-02-27 18:27] LABS: Blood Morphology Comment NOT SEEN (NOT SEEN); Platelet Estimate ADEQ; White Blood Cell Scan OK (OK)
[2024-02-27] MEDS: IPRATROPIUM BROM 0.5MG/2.5ML NEB SCH (19:35)
[2024-02-27] MEDS: ARFORMOTEROL TARTRATE 15 MCG/2 ML VIAL.NEB NEB SCH (19:35)
[2024-02-27] MEDS: FUROSEMIDE 40 MG/4 ML VIAL IV ONE (19:35)
[2024-02-27] MEDS ORDERED: ARFORMOTEROL TARTRATE 15 MCG/2 ML VIAL.NEB ONE (19:39)
[2024-02-27] MEDS ORDERED: METHYLPREDNISOLONE 40 MG INJ ONE (19:50)
[2024-02-27] MEDS ORDERED: Levofloxacin 750mg IV 0 MG/0 ML BAG IV ONE (19:50)
[2024-02-27] MEDS ORDERED: FUROSEMIDE 40 MG/4 ML VIAL ONE (19:50)
[2024-02-27] MEDS: Levofloxacin 750mg IV 750 MG/150 ML BAG IV SCH (19:56)
[2024-02-27] MEDS: METHYLPREDNISOLONE 40 MG INJ IV SCH (19:56)
[2024-02-27] MEDS: NA CHLORIDE 0.9% 1,000 ML IV SCH (20:45)
[2024-02-27] MEDS: METOPROLOL TAR 25 MG TAB PO SCH (20:46)
[2024-02-27] MEDS: ACETAMINOPHEN 500 MG TAB PO PRN (21:07)
[2024-02-27] MEDS ORDERED: GABAPENTIN 400 MG CAP PO PRN (21:25)
[2024-02-27 22:19] VITALS: BMI 23.9
[2024-02-27 22:36] LABS: Specific Gravity 1.019 (1.005-1.030); Sqamous Epithelial <5 /HPF (None Seen); Urine Bacteria None Seen /HPF (<20); Urine Bilirubin NEGATIVE (Negative); Urine Blood Negative (Negative); Urine Clarity Clear (Clear); Urine Color Colorless (Yellow); Urine Culture Reflex Order NOT NEEDED; Urine Glucose NEGATIVE (Negative); Urine Ketones NEGATIVE (Negative); Urine Microscopic Reflex YN ORDER UMIC; Urine Mucus Slight /HPF (None Seen); Urine Nitrite NEGATIVE (Negative); Urine Protein NEGATIVE (Negative); Urine RBC None Seen /HPF (None Seen); Urine Urobilinogen Normal (Normal); Urine WBC <5 /HPF (<5); Urine pH 5.5 (5.0-7.0)
[2024-02-27] MEDS: ALPRAZOLAM 0.25 MG TABLET PO PRN (22:36)
[2024-02-28 03:52] LABS: Absolute Basophils 0.2 K/uL (0-0.5); Absolute Lymphocytes (CBC) 0.3 K/uL (0.7-4.9); Absolute Monocytes 0.5 K/uL (0.1-1.3); Absolute Neutrophil 21.7 K/uL (1.8-8.0); Basophils % 0.8 % (0-1.3); Hematocrit 44.6 % (36.0-45.0); Hemoglobin 14.5 g/dL (12.0-15.0); Lymphocytes % 1.2 % (15.3-44.8); MCH 30.1 pg (27.0-35.0); MCHC 32.5 g/dL (32.0-36.0); MCV 92.5 fL (80-100); MPV 8.8 fL (7.6-11.3); Monocytes % 2.1 % (3.3-12.3); Neutrophils % 95.9 % (41.7-73.7); Platelets 254 thou/uL (152-406); RBC Red Blood Cell Count 4.82 M/uL (3.86-4.86); Red Cell Distribution Width 15.8 % (12.1-15.2)
[2024-02-28 04:02] LABS: PT Prothrombin Time 12.7 SECONDS (9.5-12.5); PTT, Activated Partial Thromb 25.3 SECONDS (24.3-36.9); Protime INR 1.16
[2024-02-28 04:14] LABS: Albumin 3.1 g/dL (3.4-5.0); Albumin/Globulin Ratio 0.9 (1.1-1.8); Anion Gap 6.3 mEq/L (5.0-15.0); Bilirubin Total 0.5 mg/dL (0.2-1.0); Globulin 3.5 g/dL (2.3-3.5); Magnesium 2.3 mg/dL (1.6-2.4); Phosphorus 4.6 mg/dL (2.5-4.9); Potassium 4.3 mEq/L (3.5-5.1); Protein, Total 6.6 g/dL (6.4-8.2)
[2024-02-28] MEDS: GABAPENTIN 300 MG CAP PO PRN (05:43)
--- NOTE | 2024-02-28 07:54 | P.PN ---
Subjective Date of Service: 02/28/24 Chief Complaint: Shortness of breath presents to the emergency room with shortness of breath. she reports productive cough, 3 L of oxygen at home. - Physical Exam General: Alert, In no apparent distress, Oriented x3 HEENT: Atraumatic, PERRLA, Mucous membr. moist/pink, EOMI, Sclerae nonicteric Neck: Supple, 2+ carotid pulse no bruit, No LAD, Without JVD or thyroid abnormality Respiratory: Diminished, Expiratory wheezes Cardiovascular: Regular rate/rhythm, Normal S1 S2, Systolic murmur Gastrointestinal: Normal bowel sounds, Soft and benign, Non-distended, No tenderness Musculoskeletal: No clubbing, No swelling, No tenderness Integumentary: No rashes Neurological: Normal gait, Normal speech, Normal tone, Sensation intact, Cranial nerves 3-12 intact, Normal affect, Abnormal strength Lymphatics: No axilla or inguinal lymphadenopathy <Ruthie Ruano - Last Filed: 02/28/24 09:48> Date of Service: 02/28/24 <Mehnaz Natarajan - Last Filed: 02/29/24 11:50> Review of Systems per HPI <Ruthie Ruano - Last Filed: 02/28/24 09:48> Physical Examination - Vital Signs Temperature: 97 F Blood Pressure: 107/58 Pulse: 67 Respirations: 21 Pulse Ox (%): 91 - Studies Laboratory Data (last 24 hrs) 02/27/24 02/27/24 02/27/24 13:48 13:48 13:48 WBC 25.90 H Hgb 16.7 H Hct 49.4 H Plt Count 284 PT 11.8 INR 1.07 Sodium 136 Potassium 3.5 BUN 21 H Creatinine 0.66 Glucose 102 Magnesium 1.9 Total Bilirubin 0.8 AST 23 ALT 33 Alkaline Phosphatase 87 Microbiology Data (last 24 hrs): 02/27/24 13:59 Nasopharnyx Influenza Type A Antigen Screen - Final 02/27/24 13:59 Nasopharnyx Influenza Type B Antigen Screen - Final <Ruthie Ruano - Last Filed: 02/28/24 09:48> Assessment And Plan - Plan Assessment & Plan - Problems (Diagnosis) Acute hypoxic respite failure secondary to pneumonia with leukocytosis Severe sepsis secondary to pneumonia COPD with acute exacerbation Dependent on home O2 Current Visit: No Status: Acute Pulmonary consult, IV level Nebs, (HFpEF) heart failure with preserved ejection fraction Current Visit: Yes Status: Acute Bronchiectasis Current Visit: No Status: Acute Pulmonary Mycobacterium avium complex (MAC) infection Current Visit: No Status: Acute Plan: 1. Patient with COPD with acute exacerbation; continue with nebs, steroids, and antibiotics. Patient has a history of MAC infection. Will go ahead and treat accordingly and get pulmonary consultation. Patient on 3 L of oxygen at home. He had will continue with 3 L at this time. Patient has some purulent mucus production. She will get long-acting beta agonist along with the Atrovent treatments. Albuterol as needed. Continue with IV antibiotic therapy. 2. HFpEF; continue with gentle diuresing. Recent echocardiogram with ejection fraction 50 to 55%. Continue with cardiac meds. BNP is normal 3. Secondary polycythemia; most likely related light of COPD 4. GI DVT prophylax Discharge Plan: Home Plan to discharge in: Greater than 2 days Discharge Plan: Home - Code Status/Comfort Care Code Status: Full Code Critical Care: No Time Spent Managing PTS Care (In Minutes): 35 <Ruthie Ruano - Last Filed: 02/28/24 09:48> - Current Problems (Diagnosis) (1) COPD with acute exacerbation Current Visit: No Status: Acute (2) (HFpEF) heart failure with preserved ejection fraction Current Visit: Yes Status: Acute (3) Bronchiectasis Current Visit: No Status: Acute (4) Pulmonary Mycobacterium avium complex (MAC) infection Current Visit: No Status: Acute <Mehnaz Natarajan - Last Filed: 02/29/24 11:50> Date of Service: 02/28/24 Patient was seen and examined. Events of the last 24 hours have been noted. Spoke with with GREGG regarding patient's clinical picture after evaluating and examining the patient independently. I performed a substantial part of the MDM during this patient's care today. I personally made or approved the documented management plan and acknowledge its risk of complications. I agree with the findings and documentation provided in the GREGG's notes. Clinical symptoms are improved. Left lower lobe pneumonia is stable. While awaiting pulmonary consultation. <Mehnaz Natarajan - Last Filed: 02/29/24 11:50>
[2024-02-28] MEDS: ASPIRIN 81 MG CHEWABLE TABLET PO SCH (09:00)
[2024-02-28] MEDS ORDERED: predniSONE 20 MG TAB PO SCH (09:00)
[2024-02-28] MEDS: METOPROLOL XL 25 MG TAB PO SCH (09:16)
[2024-02-28] MEDS: MONTELUKAST 10 MG TAB PO SCH (09:16)
[2024-02-28] MEDS: PANTOPRAZOLE 40MG TABLET PO SCH (09:16)
[2024-02-28] MEDS: ENOXAPARIN 40 MG/0.4 ML SQ SCH (09:17)
[2024-02-28] MEDS: DULOXETINE 30 MG CAP PO SCH (09:17)
[2024-02-28] MEDS: FUROSEMIDE 20 MG/ 2ML VIAL IV SCH (09:17)
[2024-02-28] MEDS: SUMATRIPTAN SUCCI 50 MG TAB PO ONE (16:03)
[2024-02-28] MEDS: ATORVASTATIN 40 MG TAB PO SCH (20:48)
[2024-02-28] MEDS: ALBUTEROL 2.5 MG/3 ML NEB SOL NEB PRN (21:59)
--- NOTE | 2024-02-29 12:46 | EKG ---
Test Date: 2024-02-27 Test Time: 13:33:31 Treatment Counselor: MARC MEASUREMENT RESULTS: Intervals: Rate: 95 WI: 176 QRSD: 86 QT: 392 QTc: 492 [place]: P: 93 WI: 176 QRS: 77 T: 76 INTERPRETIVE STATEMENTS: Normal sinus rhythm Nonspecific ST and T wave abnormality Prolonged QT Abnormal ECG Compared to ECG 01/26/2023 06:07:12 ST (T wave) deviation now present Prolonged QT interval now present Electronically Signed On 02-29-24 12:41:38 CDT by Spencer Figueroa
--- NOTE | 2024-02-29 12:49 | P.PN ---
Subjective Date of Service: 02/29/24 Chief Complaint: Shortness of breath Pt is resting comfortably in bed. She is feeling better. Pt denies any cough but reports headache. No other complaints. Review of Systems General: Unremarkable Eyes: Unremarkable ENT: Unremarkable Respiratory: Unremarkable Cardiovascular: Unremarkable Gastrointestinal: Unremarkable Genitourinary: Unremarkable Musculoskeletal: Unremarkable Integumentary: Unremarkable Neurological: Unremarkable Lymphatics: Unremarkable Physical Examination - Vital Signs Temperature: 97.0 F Blood Pressure: 127/61 Pulse: 85 Respirations: 16 Pulse Ox (%): 91 - Physical Exam General: Alert, In no apparent distress, Oriented x3 HEENT: Atraumatic, Normocephalic, PERRLA Neck: Supple, 2+ carotid pulse no bruit Respiratory: Clear to auscultation bilaterally, Normal air movement Cardiovascular: No edema, Normal pulses, Regular rate/rhythm, Normal S1 S2 Capillary refill: <2 Seconds Gastrointestinal: Normal bowel sounds, Soft and benign, Non-distended Musculoskeletal: No clubbing, No swelling Integumentary: No rashes, No breakdown Neurological: Normal gait, Normal speech, Normal strength at 5/5 x4 extr, Normal tone Lymphatics: No axilla or inguinal lymphadenopathy Assessment And Plan - Plan Severe sepsis secondary to pneumonia: Will continue levaquin. F/u blood cx. Acute resp failure with hypoxia: Due to pneumonia with leukocytosis. Will continue levaquin, steroid, prn duoneb and oxygen Acute COPD exacerbation: Continue steroid, levaquin, oxygen, mucinex and duoneb. Consulted Pulm. Heart failure with preserved ejection fraction: continue with gentle diuresing. Recent echocardiogram with ejection fraction 50 to 55%. Continue with cardiac meds. BNP is normal Secondary polycythemia: most likely related light of COPD. Will monitor H/H Hx of mild CAD: Pt had recent cardiac cath at an outside hospital, No stent was placed. Pt denies any chest pain. Continue aspirin and statin GI ppx: protonix DVT ppx: lovenox. Dispo: Pending hospital course
[2024-02-29] MEDS: ALBUTEROL 2.5 MG/3 ML NEB SOL NEB PRN (14:01)
[2024-03-01 07:44] LABS: Anion Gap 9.1 mEq/L (5.0-15.0); Potassium 3.1 mEq/L (3.5-5.1)
[2024-03-01 07:48] LABS: Absolute Basophils 0.1 K/uL (0-0.5); Absolute Lymphocytes (CBC) 0.3 K/uL (0.7-4.9); Absolute Monocytes 0.5 K/uL (0.1-1.3); Absolute Neutrophil 13.3 K/uL (1.8-8.0); Basophils % 0.7 % (0-1.3); Hemoglobin 13.7 g/dL (12.0-15.0); Lymphocytes % 1.8 % (15.3-44.8); MCH 30.6 pg (27.0-35.0); MCHC 33.5 g/dL (32.0-36.0); MCV 91.5 fL (80-100); MPV 8.5 fL (7.6-11.3); Monocytes % 3.5 % (3.3-12.3); Nucleated Red Blood Cells % 0.1 % (0-0); Platelets 305 thou/uL (152-406); RBC Red Blood Cell Count 4.48 M/uL (3.86-4.86); Red Cell Distribution Width 15.3 % (12.1-15.2)
[2024-03-01] MEDS: AMLODIPINE 10 MG TAB PO SCH (09:34)
[2024-03-01] MEDS: POTASSIUM CL SA 10 MEQ TAB PO ONE ×2 (09:34→12:18)
--- NOTE | 2024-03-01 10:41 | P.PN ---
Subjective Date of Service: 03/01/24 Chief Complaint: Shortness of breath Pt is resting comfortably in bed. She reports scanty productive cough with yellow sputum. She complains of headache. No other complaints. Review of Systems General: Unremarkable Eyes: Unremarkable ENT: Unremarkable Respiratory: Cough Cardiovascular: Unremarkable Gastrointestinal: Unremarkable Genitourinary: Unremarkable Musculoskeletal: Unremarkable Integumentary: Unremarkable Neurological: Unremarkable Lymphatics: Unremarkable Physical Examination - Vital Signs Temperature: 97.0 F Blood Pressure: 171/77 Pulse: 84 Respirations: 17 Pulse Ox (%): 89 - Physical Exam General: Alert, In no apparent distress, Oriented x3 HEENT: Atraumatic, Normocephalic, PERRLA Neck: Supple, 2+ carotid pulse no bruit Respiratory: Clear to auscultation bilaterally, Normal air movement Cardiovascular: No edema, Normal pulses, Regular rate/rhythm, Normal S1 S2 Capillary refill: <2 Seconds Gastrointestinal: Normal bowel sounds, Soft and benign, Non-distended Musculoskeletal: No clubbing, No swelling Integumentary: No rashes, No breakdown Neurological: Normal gait, Normal speech, Normal strength at 5/5 x4 extr Lymphatics: No axilla or inguinal lymphadenopathy Assessment And Plan - Plan Severe sepsis secondary to pneumonia: Will continue levaquin. F/u blood cx. Acute resp failure with hypoxia: Due to pneumonia with leukocytosis. Will continue levaquin, steroid, prn duoneb and oxygen Acute COPD exacerbation: Continue steroid, levaquin, oxygen, mucinex and duoneb. Consulted Pulm. Heart failure with preserved ejection fraction: continue with gentle diuresing. Recent echocardiogram with ejection fraction 50 to 55%. Continue with cardiac meds. BNP is normal Secondary polycythemia: most likely related light of COPD. Will monitor H/H Hx of mild CAD: Pt had recent cardiac cath at an outside hospital, No stent was placed. Pt denies any chest pain. Continue aspirin and statin GI ppx: protonix DVT ppx: lovenox. Dispo: Pending hospital course
[2024-03-01] MEDS: ACETAMIN/CAFFEINE/BUTALB TAB PO PRN (12:18)
[2024-03-01] MEDS: CLOTRIMAZOLE 10 MG TROCHE PO SCH (12:19)
[2024-03-01] MEDS: SUCRALFATE 1 GM TABLET PO SCH (17:15)
[2024-03-01] MEDS: GUAIFENESIN 600 MG SA TAB PO SCH (20:45)
[2024-03-02 04:31] LABS: Hematocrit 44.4 % (36.0-45.0); Hemoglobin 14.5 g/dL (12.0-15.0); MCH 30.1 pg (27.0-35.0); MCHC 32.6 g/dL (32.0-36.0); MCV 92.5 fL (80-100)
[2024-03-02 04:32] LABS: Absolute Lymphocytes (CBC) 0.3 K/uL (0.7-4.9); Absolute Monocytes 0.8 K/uL (0.1-1.3); Basophils % 0.3 % (0-1.3); Lymphocytes % 2.6 % (15.3-44.8); MPV 8.6 fL (7.6-11.3); Monocytes % 6.3 % (3.3-12.3); Neutrophils % 90.8 % (41.7-73.7); Platelets 307 thou/uL (152-406); Red Cell Distribution Width 16.1 % (12.1-15.2)
[2024-03-02 04:40] LABS: Albumin/Globulin Ratio 0.9 (1.1-1.8); Anion Gap 7.5 mEq/L (5.0-15.0); Bilirubin Total 0.2 mg/dL (0.2-1.0); Globulin 3.5 g/dL (2.3-3.5); Protein, Total 6.5 g/dL (6.4-8.2)
[2024-03-02 04:41] LABS: Potassium 4.5 mEq/L (3.5-5.1)
[2024-03-02 05:13] LABS: Band Neutrophils 11 % (0-1); Blood Morphology Comment NOT SEEN (NOT SEEN); Differential Total Cells Count 100; Lymphocytes 5 % (15-42); Monocytes 8 % (0-10); Platelet Estimate ADEQ; Reactive Lymphocytes 4 %; Segmented Neutrophils 72 % (40-80)
--- NOTE | 2024-03-02 08:23 | P.CNS ---
Date of Consult: 03/02/24 Reason for Consult: Pneumonia Chief Complaint: Shortness of breath History of Present Illness: Patient is 73 years of age with a history of COPD was recently discharged from [facility] with a diagnosis of pneumonia is not doing well. In the hospital the left lower lobe pneumonia some mild coronary artery disease. With worsening dyspnea currently doing much better Allergies No Known Allergies Allergy (Verified 10/03/15 17:13) Home Medications: ALPRAZolam [Xanax*] 0.25 mg PO BEDTIME PRN 10/03/15 Gabapentin [Neurontin*] 300 mg PO TIDP PRN 01/03/23 Umeclidinium Brm/Vilanterol Tr [Anoro Ellipta 62.5-25 Mcg INH] 2 puff IH DAILY 01/03/23 Aspirin Chewable [Aspirin Chewable*] 81 mg PO DAILY tab.chew 01/06/23 Albuterol Sulfate [Proair Respiclick] 90 mcg IH Q6HP PRN 02/27/24 Atorvastatin Calcium [Lipitor] 40 mg PO BEDTIME 02/27/24 Duloxetine HCl 60 mg PO DAILY 02/27/24 Metoprolol Succinate [Toprol Xl] 25 mg PO DAILY 02/27/24 Montelukast [Singulair] 10 mg PO DAILY 02/27/24 Pantoprazole [Protonix Tab] 40 mg PO DAILY 02/27/24 predniSONE [Prednisone*] 10 mg PO DAILY 02/27/24 Hydrocodone 10/APAP 325 [[place] 10/325] 1 tab PO Q8H PRN 02/28/24 Nebulizer Accessories [A.i.r.s. Nebulizer] 1 each MC Q4H PRN 30 Days #1 kit 02/28/24 Nebulizer and Compressor [[place] Choice Nebulizer] 1 each MC Q4H PRN 30 Days #1 ea 02/28/24 - Past Medical/Surgical History Diabetic: No -: Sciatica -: Scoliosis -: COPD -: osteoarthritis -: Hysterectomy -: heart cath - Family History Father Medical History: Lung disease, Blood disorders, Other (see notes) Notes: PAD Mother Medical History: Lung disease Brother Medical History: Lung disease Notes: COPD Sister Medical History: Cancer Notes: Stomach - Social History Smoking Status: Former smoker Alcohol use: No CD- Drugs: Yes Caffeine use: Yes Place of Residence: Home Review of Systems 10-point ROS is otherwise unremarkable General: Weakness Respiratory: Shortness of Breath Physical Examination Temp Pulse Resp BP Pulse Ox 97.8 F 65 24 H 153/75 H 92 03/02/24 04:00 03/02/24 06:50 03/02/24 06:50 03/02/24 06:50 03/02/24 06:50 General: Alert, In no apparent distress, Oriented x3 Respiratory: Crackles/rales (Crackles on the left lower zone) Cardiovascular: No edema, Regular rate/rhythm, Normal S1 S2 Gastrointestinal: Normal bowel sounds, Soft and benign - Problems (1) Pneumonia Current Visit: No Status: Acute Plan: Patient is 73 years of age with a history of COPD on home oxygen admitted with left lower lobe pneumonia patient is improving each to p.o. levofloxacin white count has declined significantly cultures are all negative vital signs all satisfactory have ordered room air ABG add spironolactone may have underlying diastolic dysfunction labs chemistries reviewed reduce the dose of steroid to prednisone 10 mg twice a day ambulate discharge planning will order POC from [facility] patient Qualifiers: Lung location: lower lobe of lung
--- NOTE | 2024-03-02 09:11 | P.PN ---
Subjective Date of Service: 03/02/24 Chief Complaint: Shortness of breath Subjective: Other (awoke this am with substernal chest pain with worsening dysphagia. Attempted mycelex lozenges and carafate yesterday. Pt really only comfortable swallowing oatmeal. Esophagram ordered and Dr. Mccoy consulted) <Karen Ford - Last Filed: 03/02/24 09:12> Date of Service: 03/02/24 <Karri Ibarra - Last Filed: 03/02/24 11:20> Review of Systems 10-point ROS is otherwise unremarkable General: As per HPI ENT: Other (worsening dysphagia) Respiratory: Cough, As per HPI Neurological: As per HPI <Karen Ford - Last Filed: 03/02/24 09:12> Physical Examination - Vital Signs Temperature: 97.8 F Blood Pressure: 153/75 Pulse: 65 Respirations: 24 Pulse Ox (%): 92 - Physical Exam General: Alert, In no apparent distress, Oriented x3 HEENT: Atraumatic, Normocephalic, Other (+ dysphagia) Neck: 2+ carotid pulse no bruit Respiratory: Normal air movement Cardiovascular: Normal pulses Capillary refill: <2 Seconds Gastrointestinal: Soft and benign Musculoskeletal: No clubbing, No swelling Integumentary: No breakdown Neurological: Normal speech Lymphatics: No axilla or inguinal lymphadenopathy External genitalia: Deferred Rectal: Deferred <Karen Ford - Last Filed: 03/02/24 09:12> Assessment And Plan - Plan - Plan Severe sepsis secondary to pneumonia: Will continue levaquin. F/u blood cx. Acute resp failure with hypoxia: Due to pneumonia with leukocytosis. Improved. will switch to po levaquin, 10mg prednisone BID, prn duoneb and oxygen Acute COPD exacerbation: Continue steroid, levaquin, oxygen, mucinex and duoneb. Consulted Pulm. Heart failure with preserved ejection fraction: continue with gentle diuresing. Recent echocardiogram with ejection fraction 50 to 55%. Continue with cardiac meds. BNP is normal Secondary polycythemia: most likely related light of COPD. Will monitor H/H Hx of mild CAD: Pt had recent cardiac cath at an outside hospital, No stent was placed. Pt denies any chest pain. Continue aspirin and statin Dysphagia/esophagitis: Worsening dysphagia, awakes with substernal, midline pain. Started Mycelex lozenges and Carafate yesterday. Consulted Dr. Mccoy for endoscopy this am. He requested esophagram today, pt to be NPO post MN for endo. GI ppx: protonix <Karen Ford - Last Filed: 03/02/24 09:12> - Plan Pt seen and examined. I agree with the note by the BOILER ROOM OPERATOR. Pt is NPO for endoscopy. Will continue abx for pneumonia. <Karri Ibarra - Last Filed: 03/02/24 11:20>
[2024-03-02] MEDS: predniSONE 10 MG TAB PO SCH (09:46)
[2024-03-02] MEDS: levoFLOXacin 750 MG TAB PO SCH (09:46)
[2024-03-02] MEDS: SPIRONOLACTONE 25 MG TABLET PO SCH (09:46)
--- NOTE | 2024-03-02 11:10 | RAD REPORT ---
EXAM DESCRIPTION: RAD - Esophagram Only - 03/02/2024 11:04 am CLINICAL HISTORY: dysphagia, endoscopy tomorrow Difficulty swallowing COMPARISON: Abdomen Pelvis W Contrast dated 01/26/2023; Chest For Pe Angio dated 02/27/2024 FINDINGS: An esophagram was performed and shows normal bolus formation and normal initiation of swal lowing. Primary peristalsis is normal with no intrinsic or extrinsic esophageal abnormalities. Total fluoroscopy time: 0.32 minute Number of images acquired: 5 IMPRESSION: Unremarkable barium esophagram.
--- NOTE | 2024-03-02 12:33 | EKG ---
Test Date: 2024-03-02 Test Time: 07:01:40 Geospatial Developer: CHRISTAG MEASUREMENT RESULTS: Intervals: Rate: 70 [place]: 134 QRSD: 88 QT: 404 QTc: 436 [place]: P: 81 [place]: 134 QRS: 68 T: 72 INTERPRETIVE STATEMENTS: Normal sinus rhythm T wave abnormality, consider anterior ischemia Abnormal ECG Compared to ECG 02/27/2024 13:33:31 T-wave abnormality now present Possible ischemia now present ST (T wave) deviation no longer present Prolonged QT interval no longer present Electronically Signed On 03-02-24 12:32:23 CDT by Spencer Figueroa
[2024-03-02] MEDS: ALPRAZOLAM 0.25 MG TABLET PO PRN (14:49)
[2024-03-02 16:42] LABS: Arterial Blood Carboxyhemoglob 0.9 % (0-1.5); Blood Gas Oxyhemoglobin 78.2 % (94-97); Blood Gas THB 15.2 g/dl (12-18); Blood O2 Saturation 80.1 % (92-98.5)
[2024-03-02] MEDS: ALPRAZOLAM 0.25 MG TABLET PO ONE (21:57)
[2024-03-03 08:54] LABS: Absolute Lymphocytes (CBC) 0.4 K/uL (0.7-4.9); Absolute Monocytes 1.2 K/uL (0.1-1.3); Absolute Neutrophil 10.2 K/uL (1.8-8.0); Basophils % 0.2 % (0-1.3); Eosinophils % 0.2 % (0-4.4); Hematocrit 45.3 % (36.0-45.0); Hemoglobin 14.7 g/dL (12.0-15.0); Lymphocytes % 3.4 % (15.3-44.8); MCH 29.9 pg (27.0-35.0); MCHC 32.5 g/dL (32.0-36.0); MPV 8.1 fL (7.6-11.3); Monocytes % 9.9 % (3.3-12.3); Neutrophils % 86.3 % (41.7-73.7); Nucleated Red Blood Cells % 0.1 % (0-0); Platelets 323 thou/uL (152-406); RBC Red Blood Cell Count 4.92 M/uL (3.86-4.86); Red Cell Distribution Width 15.8 % (12.1-15.2)
[2024-03-03 09:13] LABS: Albumin 2.9 g/dL (3.4-5.0); Albumin/Globulin Ratio 0.9 (1.1-1.8); Anion Gap 4.7 mEq/L (5.0-15.0); Bilirubin Total 0.3 mg/dL (0.2-1.0); Globulin 3.1 g/dL (2.3-3.5); Potassium 3.7 mEq/L (3.5-5.1)
--- NOTE | 2024-03-03 09:37 | P.PN ---
Subjective Date of Service: 03/03/24 Chief Complaint: Shortness of breath Subjective: Improving (Feeling much better today) <Brittany Fordbartolome Mckeon - Last Filed: 03/03/24 09:29> Date of Service: 03/03/24 <Karri Ibarra Alina - Last Filed: 03/03/24 12:05> Review of Systems 10-point ROS is otherwise unremarkable Respiratory: As per HPI Cardiovascular: As per HPI Gastrointestinal: As per HPI <FordKaren Mckeon - Last Filed: 03/03/24 09:29> Physical Examination - Vital Signs Temperature: 97.4 F Blood Pressure: 157/80 Pulse: 65 Respirations: 17 Pulse Ox (%): 97 - Physical Exam General: Alert, In no apparent distress, Oriented x3, Other (looks much better today) HEENT: Atraumatic, Normocephalic Neck: JVD not distended Respiratory: Normal air movement, Other (pt has been on 3L but noted rise in CO2 on bloodwork, decrease O2 to 2L via N/C) Cardiovascular: Regular rate/rhythm Capillary refill: <2 Seconds Gastrointestinal: Soft and benign Musculoskeletal: No clubbing, No swelling Integumentary: Other (scattered ecchymosis) Neurological: Normal speech, Normal tone Lymphatics: No axilla or inguinal lymphadenopathy External genitalia: Deferred Rectal: Deferred <Brittany Fordbartolome Mckeon - Last Filed: 03/03/24 09:29> Assessment And Plan - Plan - Plan Severe sepsis secondary to pneumonia: Will continue levaquin. F/u blood cx. Acute resp failure with hypoxia: Due to pneumonia with leukocytosis. Improved. will switch to po levaquin, 10mg prednisone BID, prn duoneb and oxygen Acute COPD exacerbation: Continue steroid, levaquin, oxygen, mucinex and duoneb. Consulted Pulm. will d/c with portable O2, needs decrease to 2L from 3L inpatient today as Chem 7 CO2 increasing Heart failure with preserved ejection fraction: continue with gentle diuresing. Recent echocardiogram with ejection fraction 50 to 55%. Continue with cardiac meds. BNP is normal Secondary polycythemia: most likely related light of COPD. Will monitor H/H Hx of mild CAD: Pt had recent cardiac cath at an outside hospital, No stent was placed. Pt denies any chest pain. Continue aspirin and statin Dysphagia/esophagitis: Worsening dysphagia, awakes with substernal, midline pain. Started Mycelex lozenges and Carafate yesterday. Consulted Dr. Mccoy for endoscopy this am. He requested esophagram (normal) today 03/02, pt to be NPO post MN for EGD 03/03 GI ppx: protonix Discharge Plan: Home Plan to discharge in: 24 Hours - Code Status/Comfort Care Code Status Assessed: Yes (Full) <Karen Ford - Last Filed: 03/03/24 09:29> - Plan Pt seen and examined. I agree with the note by the PROFESSOR OF RELIGIOUS STUDIES. Esophogram is unremarkable. Willdo EGD today. Continue levaquin for pneumonia. <Karri Ibarra - Last Filed: 03/03/24 12:05>
--- NOTE | 2024-03-03 12:26 | P.PN ---
Subjective Date of Service: 03/03/24 Chief Complaint: COPD exacerbation Subjective: Improving (Patient is improving no change complaining of dysphagia barium swallow is negative endoscopy pending) Review of Systems General: Weakness Respiratory: Shortness of Breath Physical Examination - Vital Signs Temperature: 97.4 F Blood Pressure: 135/65 Pulse: 60 Respirations: 16 Pulse Ox (%): 93 - Physical Exam General: Alert, Oriented x3 HEENT: Atraumatic Respiratory: Clear to auscultation bilaterally, Diminished Cardiovascular: No edema, Regular rate/rhythm, Normal S1 S2 Assessment And Plan - Current Problems (Diagnosis) (1) Pneumonia Current Visit: No Status: Acute Plan: Patient is doing better currently stable blood cultures are negative patient's white count is declining oxygenation stable blood pressure stable discharge planning after the endoscopy signs labs all reviewed Qualifiers: Pneumonia type: due to unspecified organism Lung location: lower lobe of lung
[2024-03-03] MEDS: NA CHLORIDE 0.9% 500 ML ONE (15:20)
[2024-03-03] MEDS ORDERED: propofoL 200 MG/20 ML VIAL IV ONE ×2 (15:57→16:14)
[2024-03-03] MEDS ORDERED: LIDOCAINE 1% MPF 5 ML VIAL ONE (15:57)
[2024-03-04 07:06] LABS: Absolute Eosinophils 0.1 K/uL (0-0.5); Absolute Lymphocytes (CBC) 0.5 K/uL (0.7-4.9); Absolute Monocytes 0.8 K/uL (0.1-1.3); Absolute Neutrophil 8.2 K/uL (1.8-8.0); Basophils % 0.2 % (0-1.3); Eosinophils % 0.9 % (0-4.4); Hematocrit 44.8 % (36.0-45.0); Hemoglobin 14.7 g/dL (12.0-15.0); Lymphocytes % 5.5 % (15.3-44.8); MCH 30.2 pg (27.0-35.0); MCHC 32.8 g/dL (32.0-36.0); MCV 91.9 fL (80-100); MPV 7.6 fL (7.6-11.3); Monocytes % 8.7 % (3.3-12.3); Neutrophils % 84.7 % (41.7-73.7); Nucleated Red Blood Cells % 0.1 % (0-0); Platelets 288 thou/uL (152-406); RBC Red Blood Cell Count 4.88 M/uL (3.86-4.86); Red Cell Distribution Width 15.5 % (12.1-15.2)
[2024-03-04 07:19] LABS: Albumin 2.7 g/dL (3.4-5.0); Albumin/Globulin Ratio 0.9 (1.1-1.8); Bilirubin Total 0.4 mg/dL (0.2-1.0); Globulin 2.9 g/dL (2.3-3.5); Protein, Total 5.6 g/dL (6.4-8.2)
[2024-03-04 09:16] VITALS: TEMP 96.9
[2024-03-04 09:57] VITALS: O2SAT 94
[2024-03-04 13:15] VITALS: BP 120/59
--- NOTE | 2024-03-04 17:12 | P.DS ---
Admission Date: 02/27/24 Discharge Date: 03/04/24 Disposition: ROUTINE DISCHARGE Discharge Condition: GOOD Reason for Admission: COPD exacerbation Brief History of Present Illness: Patient is a 73-year-old female who presents to the emergency room with shortness of breath. She was recently discharged from [facility] with pneumonia. She was treated for over a week, and at that time she was also found to have diastolic dysfunction. Her left ventricular end-diastolic pressures were elevated the patient was started on low-dose diuretics. Patient had a cardiac catheterization with a 50% lesion of her left circumflex. Otherwise, her coronary arteries were unremarkable. She had no interventions performed at that time. Patient was discharged home, but she states that she was still short of breath and not feeling like herself. She has been home for the last month and she really has not been able to do much of anything. She wakes up and goes to her couch and she tends to rest third through the day. She really does not get outside the house over the last month because she gets so short of breath and fatigue. Her last echocardiogram was a month ago with a ejection fraction of 50 to 55%. Her left ventricular end-diastolic pressures were in the 8s. Since patient been at home she has been feeling really weak and short of breath. She came in with a white blood cell count of 25,000. She has been coughing up a lot of purulent secretions. Patient with a degree of polycythemia. CT of the chest is pending. Patient be admitted for inpatient hospitalization. Hospital Course: Pt is a 73 yo female with past medical history of CAD, COPD, Diastolic heart failure and secondary polycythemia who presented with shortness of breath. She was recently discharged from [facility] after she spent 1 week for the treatment of pneumonia. Patient also had a cardiac catherization at [facility] which showed 50% lesion of her left circumflex, no stent was placed.The SOB persisted at home and pt came to the ER for evaluation. The most recent Echo from last month showed an ejection fraction of 50 to 55%. On admission, lab studies showed WBC 25,000 and elevated hemoglobin level. Pt was admitted and treated for the medical problems. We gave levaquin for pneumonia. We gave levaquin, steroid and prn duoneb for COPD exacerbation. Pt had secondary polycythemia to COPD. We monitored H/H and treated acute COPD.Pt complained of dysphagia. Esophopgram was unremarkable. Pt later did EGD which showed hiatal hernia. gastritis and esophagitis. We started protonix. Pt was in NAD prior to discharge. Vital Signs/Physical Exam: Temp Pulse Resp BP Pulse Ox 96.9 F 65 16 120/59 L 96 03/04/24 12:00 03/04/24 12:00 03/04/24 12:00 03/04/24 12:00 03/04/24 12:00 Laboratory Data at Discharge: WBC 9.60 thou/uL (4.3-10.9) 03/04/24 06:25 Hgb 14.7 g/dL (12.0-15.0) 03/04/24 06:25 Hct 44.8 % (36.0-45.0) 03/04/24 06:25 Plt Count 288 thou/uL (152-406) 03/04/24 06:25 PT 12.7 SECONDS (9.5-12.5) H 02/28/24 03:43 INR 1.16 02/28/24 03:43 APTT 25.3 SECONDS (24.3-36.9) 02/28/24 03:43 Sodium 136 mEq/L (136-145) 03/04/24 06:25 Potassium 4.0 mEq/L (3.5-5.1) 03/04/24 06:25 BUN 24 mg/dL (7-18) H 03/04/24 06:25 Creatinine 0.45 mg/dL (0.55-1.02) L 03/04/24 06:25 Glucose 88 mg/dL (74-106) 03/04/24 06:25 Phosphorus 4.6 mg/dL (2.5-4.9) 02/28/24 03:43 Magnesium 2.3 mg/dL (1.6-2.4) 02/28/24 03:43 Total Bilirubin 0.4 mg/dL (0.2-1.0) 03/04/24 06:25 AST 26 U/L (15-37) 03/04/24 06:25 ALT 34 U/L (13-56) 03/04/24 06:25 Alkaline Phosphatase 67 U/L (45-117) 03/04/24 06:25 Triglycerides 74 mg/dL (<150) 02/28/24 03:43 Cholesterol 149 mg/dL (<200) 02/28/24 03:43 HDL Cholesterol 96 mg/dL (40-60) H 02/28/24 03:43 Cholesterol/HDL Ratio 1.55 02/28/24 03:43 Home Medications: ALPRAZolam [Xanax*] 0.25 mg PO BEDTIME PRN 10/03/15 Gabapentin [Neurontin*] 300 mg PO TIDP PRN 01/03/23 Umeclidinium Brm/Vilanterol Tr [Anoro Ellipta 62.5-25 Mcg INH] 2 puff IH DAILY 01/03/23 Aspirin Chewable [Aspirin Chewable*] 81 mg PO DAILY tab.chew 01/06/23 Albuterol Sulfate [Proair Respiclick] 90 mcg IH Q6HP PRN 02/27/24 Atorvastatin Calcium [Lipitor] 40 mg PO BEDTIME 02/27/24 Duloxetine HCl 60 mg PO DAILY 02/27/24 Metoprolol Succinate [Toprol Xl] 25 mg PO DAILY 02/27/24 Montelukast [Singulair*] 10 mg PO DAILY 02/27/24 Pantoprazole [Protonix Tab*] 40 mg PO DAILY 02/27/24 predniSONE [Prednisone*] 10 mg PO DAILY 02/27/24 Hydrocodone 10/APAP 325 [[place] 10/325*] 1 tab PO Q8H PRN 02/28/24 Spironolactone [Aldactone*] 25 mg PO DAILY 30 Days #30 tab 03/04/24 Sucralfate [Carafate*] 1 gm PO ACHS 30 Days #120 tab 03/04/24 levoFLOXacin [Levaquin*] 750 mg PO DAILY 4 Days #4 tab 03/04/24 New Medications: Spironolactone [Aldactone*] 25 mg PO DAILY 30 Days #30 tab Sucralfate [Carafate*] 1 gm PO ACHS 30 Days #120 tab levoFLOXacin [Levaquin*] 750 mg PO DAILY 4 Days #4 tab Physician Discharge Instructions: Continue ad guy activity. Take Levaquin 750mg po daily for 4 more days. Continue other home meds. Follow up with PCP within 1 week. Home Portable Oxygen Concentrator pending authorization (04/10/24): [facility] Address: [address] [place] [address] [id number], [place] [address] Diet: AHA Activity: Ad guy Followup: Ivan Thomas MD [ACTIVE - CAN ADMIT] - SANDHYA IVORY [Primary Care Provider] -
== END 2024-03-04 18:05 | disposition home or self-care (01) | DRG 871 ==
LOC: ER 13:20 → ERHOLD 17:47 → 4TH 20:04
PROVIDERS: ADMIT Hospitalist; ATTEND Hospitalist
PROC: 5A09357 Assistance with Respiratory Ventilation, Less than 24 Consecutive Hours, Continuous Positive Airway Pressure (ICD-10-PCS; 2024-02-27)
PROC: 4A033R1 Measurement of Arterial Saturation, Peripheral, Percutaneous Approach (ICD-10-PCS; principal; 2024-03-02)
PROC: 0DB48ZX Excision of Esophagogastric Junction, Via Natural or Artificial Opening Endoscopic, Diagnostic (ICD-10-PCS; 2024-03-02)
PROC: 0DB78ZX Excision of Stomach, Pylorus, Via Natural or Artificial Opening Endoscopic, Diagnostic (ICD-10-PCS; 2024-03-02)
DX: A41.9 Sepsis, unspecified organism (principal); J18.9 Pneumonia, unspecified organism; J96.01 Acute respiratory failure with hypoxia; J44.1 Chronic obstructive pulmonary disease with (acute) exacerbation; I50.32 Chronic diastolic (congestive) heart failure; J47.0 Bronchiectasis with acute lower respiratory infection; J44.0 Chronic obstructive pulmonary disease with (acute) lower respiratory infection; A31.0 Pulmonary mycobacterial infection; R65.20 Severe sepsis without septic shock; K21.00 Gastro-esophageal reflux disease with esophagitis, without bleeding; K29.00 Acute gastritis without bleeding; K44.9 Diaphragmatic hernia without obstruction or gangrene; D75.1 Secondary polycythemia; M19.90 Unspecified osteoarthritis, unspecified site; I25.10 Atherosclerotic heart disease of native coronary artery without angina pectoris; Z11.52 Encounter for screening for COVID-19; Z99.81 Dependence on supplemental oxygen; Z79.82 Long term (current) use of aspirin; Z79.52 Long term (current) use of systemic steroids; Z79.899 Other long term (current) drug therapy; Z87.891 Personal history of nicotine dependence; Z90.710 Acquired absence of both cervix and uterus
CPT/HCPCS: 36415; 36600; 71045; 71275; 74220; 80048; 80053; 80061; 80076; 81001; 82805; 82947; 83605; 83735; 83880; 84100; 84132; 84145; 84484; 85025; 85610; 85730; 87040; 87804; 87811; 93005; 94010; 94640; 94660; 94760; 99285; J1170; J1650; J1940; J2001; J2270; J2405; J2543; J2704; J2920; J7030; J7040; J7512; J7605; J7613; J7614; J7644; Q9967

== ENCOUNTER 2024-04-21 12:53 | Inpatient (IN) | payer OTHER ==
[2024-04-21] MEDS ORDERED: IPRATROPIUM BROM 0.5MG/2.5ML ONE (13:19)
[2024-04-21] MEDS ORDERED: LEVALBUTEROL 1.25 MG/3 ML NEB ONE (13:19)
[2024-04-21 13:33] LABS: Absolute Basophils 0.1 K/uL (0-0.5); Absolute Eosinophils 0.1 K/uL (0-0.5); Absolute Lymphocytes (CBC) 1.3 K/uL (0.7-4.9); Absolute Neutrophil 13.8 K/uL (1.8-8.0); Basophils % 0.6 % (0-1.3); Eosinophils % 0.4 % (0-4.4); Hematocrit 40.8 % (36.0-45.0); Hemoglobin 13.2 g/dL (12.0-15.0); Lymphocytes % 7.9 % (15.3-44.8); MCH 31.3 pg (27.0-35.0); MCHC 32.4 g/dL (32.0-36.0); MCV 96.6 fL (80-100); MPV 7.6 fL (7.6-11.3); Monocytes % 6.4 % (3.3-12.3); Neutrophils % 84.7 % (41.7-73.7); Nucleated Red Blood Cells % 0.1 % (0-0); Platelets 384 thou/uL (152-406); RBC Red Blood Cell Count 4.22 M/uL (3.86-4.86)
[2024-04-21 13:37] LABS: PT Prothrombin Time 11.5 SECONDS (9.5-12.5); PTT, Activated Partial Thromb 24.8 SECONDS (24.3-36.9); Protime INR 1.05
--- NOTE | 2024-04-21 13:51 | RAD REPORT ---
EXAM DESCRIPTION: RAD - Chest Single View - 04/21/2024 1:33 pm CLINICAL HISTORY: COPD Chest pain. COMPARISON: <Comparisons> FINDINGS: Portable technique limits examination quality. The lungs are emphysematous but grossly clear. The heart is normal in size. No displaced fractures. IMPRESSION: No acute intrathoracic process suspected.
[2024-04-21 13:55] LABS: Albumin 3.8 g/dL (3.4-5.0); Albumin/Globulin Ratio 1.1 (1.1-1.8); Bilirubin Direct 0.2 mg/dL (0-0.2); Bilirubin Total 1.2 mg/dL (0.2-1.0); Globulin 3.5 g/dL (2.3-3.5); Magnesium 1.8 mg/dL (1.6-2.4); Potassium 3.9 mEq/L (3.5-5.1); Protein, Total 7.3 g/dL (6.4-8.2); Troponin High Sensitivity 9.9 pg/mL (<58.9)
[2024-04-21 13:56] LABS: Anion Gap 6.9 mEq/L (5.0-15.0)
[2024-04-21] MEDS ORDERED: NA CHLORIDE 0.9% 500 ML ONE (14:48)
[2024-04-21] MEDS ORDERED: Levofloxacin 750mg IV 750 MG/150 ML BAG IV ONE (14:49)
--- NOTE | 2024-04-21 14:59 | EDPHYS ---
Physician Documentation [facility] Name: Carmenza Saldivar Age: 73 yrs Sex: Female : 1950 Arrival Date: 04/21/2024 Time: 12:53 Bed 20 Private MD: ED Physician Aditya Cannon HPI: 04/21 15:13 This 73 yrs old Female presents to ER via Wheelchair with complaints of Shortness Of rt Breath. 15:13 Patient had a recent admission to the hospital for COPD, dyspnea. Patient left rehab rt yesterday. Since getting home, shortness of breath and generalized weakness has worsened. She denies other acute complaints at this time, symptoms are severe in severity, no other aggravating or alleviating factors.. Historical: - Allergies: :57 No Known Allergies; ll1 - PMHx: :57 02 dependent 2LNC PRN; chronic back pain; COPD; osteoarthritis; sciatica; scoliosis; ll1 - PSHx: 12:57 hysterectomy; ll1 - Immunization history:: Adult Immunizations up to date. - Infectious Disease History:: Denies. - Social history:: Smoking status: Patient/guardian denies using tobacco. - Family history:: not pertinent. ROS: 15:13 Constitutional: Negative for fever, chills, and weight loss, Cardiovascular: Negative rt for chest pain, palpitations, and edema, Abdomen/GI: Negative for abdominal pain, nausea, vomiting, diarrhea, and constipation, MS/Extremity: Negative for injury and deformity, Skin: Negative for injury, rash, and discoloration, 15:13 Respiratory: Positive for cough, shortness of breath, 15:13 Neuro: Positive for weakness, Negative for altered mental status, Exam: 15:13 Constitutional: This is a well developed, well nourished patient who is awake, alert, rt and in no acute distress. Head/Face: Normocephalic, atraumatic. Chest/axilla: Normal chest wall appearance and motion. Nontender with no deformity. No lesions are appreciated. Cardiovascular: Regular rate and rhythm with a normal S1 and S2. No gallops, murmurs, or rubs. Normal PMI, no JVD. No pulse deficits. Abdomen/GI: Soft, non-tender, with normal bowel sounds. No distension or tympany. No guarding or rebound. No evidence of tenderness throughout. Skin: Warm, dry with normal turgor. Normal color with no rashes, no lesions, and no evidence of cellulitis. MS/ Extremity: Pulses equal, no cyanosis. Neurovascular intact. Full, normal range of motion. 15:13 ECG was reviewed by the Attending Physician. 15:13 Respiratory: Wheezes heard on all lung velez, moderate respiratory distress, Vital Signs: 12:56 BP 152 / 96; Pulse 134; Resp 30; Temp 97.9; Pulse Ox 89% on 2 lpm NC; Weight 62.6 kg; ll1 Height 5 ft. 3 in. ; 13:20 BP 140 / 81; Pulse 132; Resp 24; Pulse Ox 100% on 4 lpm NC; nj1 13:49 BP 130 / 89; Pulse 142; Resp 24; Pulse Ox 95% on 4 lpm NC; nj1 14:17 BP 139 / 81; Pulse 125; Resp 23; Pulse Ox 97% on 4 lpm NC; nj1 14:43 BP 142 / 77; Pulse 125; Resp 26; Pulse Ox 97% on 4 lpm NC; nj1 15:39 BP 145 / 82; Pulse 124; Resp 25; Pulse Ox 97% on 4 lpm NC; nj1 16:46 BP 112 / 76; Pulse 128; Resp 26; Pulse Ox 97% on 4 lpm NC; nj1 17:42 BP 117 / 69; Pulse 118; Resp 26; Pulse Ox 94% on 2 lpm NC; nj1 18:10 BP 134 / 67; Pulse 122; Resp 32; Pulse Ox 95% on 2 lpm NC; ld1 19:07 BP 124 / 68; Pulse 115; Resp 23; Temp 97.8(TE); Pulse Ox 96% on 2 lpm NC; nj1 12:56 Body Mass Index 24.45 (62.60 kg, 160.02 cm) ll1 MDM: 12:56 Patient medically screened. rt 15:20 Differential diagnosis: Pneumonia, CHF, pulmonary embolism, COPD. Data reviewed: vital rt signs, nurses notes, lab test result(s), EKG, radiologic studies. Consideration of Admission/Observation Patient was admitted/placed on observation. Management of patient was discussed with the following: Hospitalist: Agrees to admit. Independent interpretation of the following test(s) in the Emergency Department X-Ray: My interpretation is No pneumonia seen on interpretation of x-ray images. Care significantly affected by the following chronic conditions: Chronic Obstructive Pulmonary Disease. Counseling: I had a detailed discussion with the patient and/or guardian regarding the historical points, exam findings, and any diagnostic results supporting the discharge/admit diagnosis, lab results, radiology results, the need for further work-up and treatment in the hospital. Response to treatment: the patient's symptoms have mildly improved after treatment. 04/21 13:02 Order name: Basic Metabolic Panel; Complete Time: 14:00 rt 04/21 13:02 Order name: CBC with Diff; Complete Time: 13:54 rt 04/21 13:02 Order name: LFT's; Complete Time: 14:00 rt 04/21 13:02 Order name: Magnesium; Complete Time: 14:00 rt 04/21 13:02 Order name: NT PRO-BNP; Complete Time: 14:00 rt 04/21 13:02 Order name: Troponin HS; Complete Time: 14:00 rt 04/21 13:02 Order name: Blood Culture Adult (2) rt 04/21 13:02 Order name: Lactate w/ 2H reflex if indic.; Complete Time: 13:54 rt 04/21 13:02 Order name: Protime (+inr); Complete Time: 13:54 rt 04/21 13:02 Order name: Ptt, Activated; Complete Time: 13:54 rt 04/21 15:45 Order name: Magnesium EDMS 04/21 15:45 Order name: Urinalysis w/ reflexes EDMS 04/21 15:45 Order name: Basic Metabolic Panel EDMS 04/21 15:45 Order name: Basic Metabolic Panel EDMS 04/21 15:45 Order name: Basic Metabolic Panel EDMS 04/21 15:45 Order name: Basic Metabolic Panel EDMS 04/21 15:45 Order name: Basic Metabolic Panel EDMS 04/21 15:45 Order name: Basic Metabolic Panel EDMS 04/21 15:45 Order name: CBC with Automated Diff EDMS 04/21 15:45 Order name: CBC with Automated Diff EDMS 04/21 15:45 Order name: CBC with Automated Diff EDMS 04/21 15:45 Order name: CBC with Automated Diff EDMS 04/21 15:45 Order name: CBC with Automated Diff EDMS 04/21 15:45 Order name: CBC with Automated Diff EDMS 0530 15:45 Order name: Magnesium EDMS 04/21 15:45 Order name: Magnesium EDMS 04/21 15:45 Order name: Magnesium EDMS 04/21 15:45 Order name: Magnesium EDMS 04/21 15:45 Order name: Magnesium EDMS 04/21 15:45 Order name: Magnesium EDMS 04/21 15:45 Order name: Phosphorus EDMS 04/21 15:45 Order name: Phosphorus EDMS 04/21 15:45 Order name: Phosphorus EDMS 04/21 15:45 Order name: Phosphorus EDMS 04/21 15:45 Order name: Phosphorus EDMS 04/21 15:45 Order name: Phosphorus EDMS 04/21 15:45 Order name: Troponin High Sensitivity EDMS 04/21 15:45 Order name: Troponin High Sensitivity EDMS 04/21 15:45 Order name: Troponin High Sensitivity EDMS 04/21 16:04 Order name: ABG Arterial Blood Gas EDAK 04/21 13:02 Order name: XRAY Chest (1 view); Complete Time: 13:54 rt 04/21 14:50 Order name: CT Chest For PE Angio; Complete Time: 15:47 rt 04/21 16:08 Order name: Echo with Doppler EDAK 04/21 16:07 Order name: Physical Therapy Consult EDAK 04/21 16:08 Order name: Respiratory Therapy Consult EDAK 04/21 13:02 Order name: Cardiac monitoring; Complete Time: 13:25 rt 04/21 13:02 Order name: EKG - Nurse/Tech; Complete Time: 13:45 rt 04/21 13:02 Order name: IV Saline Lock; Complete Time: 13:25 rt 04/21 13:02 Order name: Labs collected and sent; Complete Time: 13:25 rt 04/21 13:02 Order name: O2 Per Protocol; Complete Time: 13:25 rt 04/21 13:02 Order name: O2 Sat Monitoring; Complete Time: 13:25 rt 04/21 13:02 Order name: Accucheck; Complete Time: 14:18 rt 04/21 13:02 Order name: IV Saline Lock - Large Bore; Complete Time: 13:25 rt 04/21 13:02 Order name: Vital Signs; Complete Time: 13:25 rt EC:13 Rate is 130 beats/min. Rhythm is regular, Sinus tachycardia with No ectopy, Rate rt related ST and T wave changes. QRS [place] is Normal. MS interval is normal. QRS interval is normal. QT interval is normal. No Q waves. Administered Medications: 13:25 Drug: Levalbuterol Inhalation 1.25 mg Inhalation once Route: Inhalation; nj1 13:50 Follow up: Response: No adverse reaction nj1 13:25 Drug: Ipratropium Inhalation Aerosol 0.5 mg Inhalation once Route: Inhalation; nj1 13:49 Follow up: Response: No adverse reaction nj1 14:50 Drug: NS 0.9% IV 500 ml IV at bolus once Route: IV; Rate: bolus; Site: left antecubital;nj1 17:00 Follow up: Response: No adverse reaction; IV Status: Completed infusion; IV Intake: nj1 500ml 15:00 Drug: levofloxacin IVPB 750 mg 150 ml IVPB once over 90 mins Volume: 150 ml; Route: nj1 IVPB; Infused Over: 90 mins; Site: left antecubital; 17:00 Follow up: Response: No adverse reaction; IV Status: Completed infusion; IV Intake: nj1 150ml Disposition: 16:34 Critical Care:. rt Disposition Summary: 04/21/24 14:59 Hospitalization Ordered Notes: Hospitalization Status: Inpatient Admission rt Provider: Ivan Thomas rt Condition: Fair rt Problem: new rt Symptoms: have improved rt Bed/Room Type: Standard rt Location: Telemetry/MedSurg (Inpatient)(04/21/24 19:05) sp Room Assignment: 216(04/21/24 19:05) sp Diagnosis - Dyspnea rt - Hypoxia rt - Sinus tachycardia rt Forms: - Medication Reconciliation Form rt - SBAR form rt - Leadership Thank You Letter rt Critical care time excluding procedures: 16:34 Critical care time: Bedside Care: 30 minutes, Consultation: 5 minutes. Total time: 35 rt minutes Signatures: Dispatcher [employer] EDMS Dolly Holland Jahala, RN RN jl7 Jasvir Carter RN RN ll1 Aditya Cannon MD MD rt Sissy Villalpando RN RN nj1 Corrections: (The following items were deleted from the chart) 13:02 13:02 BASIC METABOLIC PANEL+C.LAB.BRZ ordered. EDMS EDMS 13:02 13:02 CBC+H.LAB.BRZ ordered. EDMS EDMS 13:02 13:02 HEPATIC FUNCTION+C.LAB.BRZ ordered. EDMS EDMS 13:02 13:02 MAGNESIUM+C.LAB.BRZ ordered. EDMS EDMS 13:02 13:02 PROBNP+C.LAB.BRZ ordered. EDMS EDMS 13:02 13:02 Troponin High Sensitivity+C.LAB.BRZ ordered. EDMS EDMS 13:02 13:02 BLOOD CULTURE*+BA.LAB.BRZ ordered. EDMS EDMS 13:02 13:02 LACTATE+C.LAB.BRZ ordered. EDMS EDMS 13:02 13:02 PROTIME (+INR)+COAG.LAB.BRZ ordered. EDMS EDMS 13:02 13:02 PTT, ACTIVATED+COAG.LAB.BRZ ordered. EDMS EDMS 13:03 13:03 Chest Single View+RAD.RAD.BRZ ordered. EDMS EDMS 17:48 14:59 Telemetry/MedSurg (Inpatient) rt jl7 17:48 14:59 rt jl7 19:05 17:48 [facility] ER HOLD jl7 sp 19:05 17:48 ERHOLD- jl7 sp
--- NOTE | 2024-04-21 14:59 | ER ---
Nurse's Notes [facility] Name: Carmenza Saldivar Age: 73 yrs Sex: Female : 1950 Arrival Date: 04/21/2024 Time: 12:53 Bed 20 Private MD: Diagnosis: Dyspnea;Hypoxia;Sinus tachycardia Presentation: 04/21 12:56 Chief complaint: Patient states: Released from our hospital last night. Still very SOB ll1 and very weak, no fever. Coronavirus screen: Client denies travel out of the [place] in the last 14 days. cough unrelated to allergies, difficulty breathing, fatigue, shortness of breath, Client presents with at least one sign or symptom that may indicate coronavirus-19. Standard/surgical mask placed on the client. Ebola Screen: Patient denies travel to an Ebola-affected area in the 21 days before illness onset. Initial Sepsis Screen: Does the patient meet any 2 criteria? No. Patient's initial sepsis screen is negative. Does the patient have a suspected source of infection? No. Patient's initial sepsis screen is negative. Risk Assessment: Do you want to hurt yourself or someone else? Patient reports no desire to harm self or others. Onset of symptoms was April 14, 2024. 12:56 Method Of Arrival: Wheelchair ll1 12:56 Acuity: ROBIN 2 ll1 Triage Assessment: 12:58 General: Appears uncomfortable, ill, Behavior is cooperative, appropriate for age, ll1 anxious. Pain: Complains of pain in lower chest Quality of pain is described as aching. Respiratory: Reports shortness of breath labored breathing pain with respiration Onset: The symptoms/episode began/occurred over a week, the patient has moderate shortness of breath. Historical: - Allergies: 12:57 No Known Allergies; ll1 - PMHx: 12:57 02 dependent 2LNC PRN; chronic back pain; COPD; osteoarthritis; sciatica; scoliosis; ll1 - PSHx: 12:57 hysterectomy; ll1 - Immunization history:: Adult Immunizations up to date. - Infectious Disease History:: Denies. - Social history:: Smoking status: Patient/guardian denies using tobacco. - Family history:: not pertinent. Screenin:25 [facility] ED Fall Risk Assessment (Adult) History of falling in the last 3 months, nj1 including since admission No falls in past 3 months (0 pts) Confusion or Disorientation No (0 pts) Intoxicated or Sedated No (0 pts) Impaired Gait No (0 pts) Mobility Assist Device Used No (0 pt) Altered Elimination No (0 pt) Score/Fall Risk Level 0 - 2 = Low Risk Oriented to surroundings, Maintained a safe environment, Hourly rounding (assess needs \T\ fall precautionary measures) done. 13:25 Abuse screen: Denies threats or abuse. Denies injuries from another. Nutritional nj1 screening: No deficits noted. Tuberculosis screening: No symptoms or risk factors identified. Assessment: 13:25 General: Appears distressed, uncomfortable, Behavior is calm, cooperative, appropriate nj1 for age. Pain: Complains of pain in right leg and left leg. Cardiovascular: Reports shortness of breath, Patient's skin is warm and dry. Rhythm is sinus tachycardia. Respiratory: Airway is patent Respiratory effort is even, labored, Respiratory pattern is tachypnea. Respiratory: Breath sounds are diminished bilaterally. 13:54 Reassessment: No changes from previously documented assessment. nj1 14:18 Reassessment: Patient appears in no apparent distress at this time. Patient and/or nj1 family updated on plan of care and expected duration. Pain level reassessed. Patient states feeling better. 15:40 Reassessment: Patient appears in no apparent distress at this time. No changes from nj1 previously documented assessment. Patient and/or family updated on plan of care and expected duration. Pain level reassessed. 16:48 Reassessment: Patient appears in no apparent distress at this time. No changes from nj1 previously documented assessment. Patient and/or family updated on plan of care and expected duration. Pain level reassessed. 17:43 Reassessment: Patient appears in no apparent distress at this time. No changes from nj1 previously documented assessment. Patient and/or family updated on plan of care and expected duration. Pain level reassessed. 19:07 Reassessment: Patient appears in no apparent distress at this time. No changes from nj1 previously documented assessment. Patient and/or family updated on plan of care and expected duration. Pain level reassessed. Vital Signs: 12:56 BP 152 / 96; Pulse 134; Resp 30; Temp 97.9; Pulse Ox 89% on 2 lpm NC; Weight 62.6 kg; ll1 Height 5 ft. 3 in. ; 13:20 BP 140 / 81; Pulse 132; Resp 24; Pulse Ox 100% on 4 lpm NC; nj1 13:49 BP 130 / 89; Pulse 142; Resp 24; Pulse Ox 95% on 4 lpm NC; nj1 14:17 BP 139 / 81; Pulse 125; Resp 23; Pulse Ox 97% on 4 lpm NC; nj1 14:43 BP 142 / 77; Pulse 125; Resp 26; Pulse Ox 97% on 4 lpm NC; nj1 15:39 BP 145 / 82; Pulse 124; Resp 25; Pulse Ox 97% on 4 lpm NC; nj1 16:46 BP 112 / 76; Pulse 128; Resp 26; Pulse Ox 97% on 4 lpm NC; nj1 17:42 BP 117 / 69; Pulse 118; Resp 26; Pulse Ox 94% on 2 lpm NC; nj1 18:10 BP 134 / 67; Pulse 122; Resp 32; Pulse Ox 95% on 2 lpm NC; ld1 19:07 BP 124 / 68; Pulse 115; Resp 23; Temp 97.8(TE); Pulse Ox 96% on 2 lpm NC; nj1 12:56 Body Mass Index 24.45 (62.60 kg, 160.02 cm) ll1 ED Course: 12:56 Patient arrived in ED. ll1 12:56 Aditya Cannon MD is Attending Physician. rt 12:57 Triage completed. ll1 12:58 Arm band placed on. ll1 13:02 First set of blood cultures drawn by co. zm 13:02 Inserted saline lock: 20 gauge in left antecubital area, using aseptic technique. Blood zm collected. 13:11 Sissy Villalpando, RN is Primary Nurse. nj1 13:18 Second set of blood cultures drawn by co. zm 13:18 Initial lab(s) drawn, by co, sent to lab. zm 13:26 Blood Culture Adult (2) Sent. zm 13:26 Lactate w/ 2H reflex if indic. Sent. zm 13:26 Protime (+inr) Sent. zm 13:26 Ptt, Activated Sent. zm 13:26 CBC with Diff Sent. zm 13:26 Basic Metabolic Panel Sent. zm 13:26 LFT's Sent. zm 13:26 Magnesium Sent. zm 13:26 NT PRO-BNP Sent. zm 13:26 Troponin HS Sent. zm 13:35 XRAY Chest (1 view) In Process Unspecified. EDMS 13:37 Patient has correct armband on for positive identification. Bed in low position. Call nj1 light in reach. Side rails up X 1. Provided Education on: call light, fall precautions. Client placed on continuous cardiac and pulse oximetry monitoring. NIBP monitoring applied. quality assurance monitor on. 13:38 Notified ED physician of other vital signs, respiratory assessment. nj1 13:38 EKG done, by ED staff, reviewed by Aditya Cannon MD. nj1 14:58 Ivan Thomas MD is Hospitalizing Provider. rt 15:25 CT Chest For PE Angio In Process Unspecified. EDMS 19:00 Report given to Dee OSPINA. nj1 19:20 No provider procedures requiring assistance completed. Patient admitted, IV remains in nj1 place. Administered Medications: 13:25 Drug: Levalbuterol Inhalation 1.25 mg Inhalation once Route: Inhalation; nj1 13:50 Follow up: Response: No adverse reaction nj1 13:25 Drug: Ipratropium Inhalation Aerosol 0.5 mg Inhalation once Route: Inhalation; nj1 13:49 Follow up: Response: No adverse reaction nj1 14:50 Drug: NS 0.9% IV 500 ml IV at bolus once Route: IV; Rate: bolus; Site: left antecubital;nj1 17:00 Follow up: Response: No adverse reaction; IV Status: Completed infusion; IV Intake: nj1 500ml 15:00 Drug: levofloxacin IVPB 750 mg 150 ml IVPB once over 90 mins Volume: 150 ml; Route: nj1 IVPB; Infused Over: 90 mins; Site: left antecubital; 17:00 Follow up: Response: No adverse reaction; IV Status: Completed infusion; IV Intake: nj1 150ml Medication: 19:21 VIS not applicable for this client. nj1 Intake: 17:00 IV: 150ml; Total: 150ml. nj1 17:00 IV: 500ml; Total: 650ml. nj1 Outcome: 14:59 Decision to Hospitalize by Provider. rt 19:20 Admitted to Med/surg accompanied by tech, room 216, with oxygen, nj1 19:20 Condition: stable 19:20 Instructed on the need for admit, 20:19 Patient left the ED. kd3 Signatures: Dispatcher [employer] EDSayra Castrosay, RN RN ll1 Rowena Ball RN RN ld1 Dee Elliott RN RN kd3 Coleen Keane Aditya Cannon MD MD rt Sissy Villalpando RN RN nj1 Corrections: (The following items were deleted from the chart) 13:26 13:23 Inserted saline lock: 20 gauge in left antecubital area, using aseptic technique. Blood collected. 13:53 13:25 General: Appears uncomfortable, Behavior is calm, cooperative, appropriate for [facility] age, [facility] 15:42 15:39 Pulse 124bpm; Resp 25bpm; Pulse Ox 97% 4 lpm Nasal Cannula; nj nj1 19:10 19:07 BP 124 / 68; Pulse 115bpm; Resp 23bpm; nj1 nj1 19:20 19:07 BP 124 / 68; Pulse 115bpm; Resp 23bpm; Pulse Ox 96% 2 lpm Nasal Cannula; [facility]1
--- NOTE | 2024-04-21 15:10 | P.HP ---
Certification for Inpatient Patient admitted to: Observation With expected LOS: <2 Midnights Practitioner: I am a practitioner with admitting privileges, knowledge of patient current condition, hospital course, and medical plan of care. Services: Services provided to patient in accordance with Admission requirements found in Title 42 Section 412.3 of the Code of Federal Regulations Patient History Date of Service: 04/21/24 Reason for admission: Acute hypoxic respiratory failure History of Present Illness: Carmenza Saldivar is a 73-year-old female with past medical history of O2 dependent 2 L nasal cannula as needed for COPD, chronic back pain, osteoarthritis, sciatica, scoliosis who presents to the ED with chief complaint of dyspnea and weakness that started this morning. She reports being discharged from inpatient rehab and felt like she was becoming increasingly short of breath during rehab. When she arrived home from acute rehab she had fallen out of the truck due to weakness. On examination she is tachycardic, increased work of breathing, on 2 L nasal cannula. Initial vital signs BP 152 / 96; Pulse 134; Resp 30; Temp 97.9; Pulse Ox 89% on 2 lpm NC Laboratory evaluation WBC 16.2, BUN/creatinine 29/0.71, troponin 9.9, lactic acid 2.1, BNP 153. Bicarb 41 Chest x-ray reports "The lungs are emphysematous but grossly clear. The heart is normal in size. No displaced fractures. IMPRESSION: No acute intrathoracic process suspected." CTA chest reports " No evidence of pulmonary thromboembolism. No acute aortic finding demonstrated. Prominent diffuse COPD pattern is present. Mild lingular atelectasis. No significant pericardial or pleural fluid. No concerning bony finding. IMPRESSION: No evidence of pulmonary thromboembolism." Carmenza will be admitted to hospitalist service for further evaluation and treatment of acute hypoxic respiratory failure. Allergies No Known Allergies Allergy (Verified 04/11/24 21:44) Home Medications: ALPRAZolam [Xanax*] 0.25 mg PO BID 10/03/15 Umeclidinium Brm/Vilanterol Tr [Anoro Ellipta 62.5-25 Mcg INH] 2 puff IH DAILY 01/03/23 Aspirin Chewable [Aspirin Chewable*] 81 mg PO DAILY tab.chew 01/06/23 Albuterol Sulfate [Proair Respiclick] 90 mcg IH Q6HP PRN 02/27/24 Atorvastatin Calcium [Lipitor] 40 mg PO BEDTIME 02/27/24 Duloxetine HCl 60 mg PO DAILY 02/27/24 Metoprolol Succinate [Toprol Xl] 25 mg PO BID 02/27/24 Montelukast [Singulair*] 10 mg PO DAILY 02/27/24 Pantoprazole [Protonix Tab*] 40 mg PO DAILY 02/27/24 Spironolactone [Aldactone*] 25 mg PO DAILY 30 Days #30 tab 03/04/24 Sucralfate [Carafate*] 1 gm PO SEECOM 04/11/24 Gabapentin 300 mg PO TID 04/13/24 Hydrocodone 5/APAP 325 [[place] 5/325*] 1 tab PO Q4H PRN #45 tab 04/20/24 Lidocaine 4% Patch [Lidoderm 5% Patch*] 1 patch TOP DAILY pat 04/20/24 Magnesium Oxide [Mag 0X*] 400 mg PO BID tab 04/20/24 predniSONE [Deltasone*] 10 mg PO DAILY #30 tab 04/20/24 - Past Medical/Surgical History Diabetic: No -: Sciatica -: Scoliosis -: COPD -: osteoarthritis -: Hysterectomy -: heart cath - Family History Father -: Lung disease, Blood disorders, Other (see notes) Notes: PAD Mother -: Lung disease Brother -: Lung disease Notes: COPD Sister -: Cancer Notes: Stomach - Social History Alcohol use: No CD- Drugs: No Caffeine use: No Review of Systems General: Weakness Respiratory: Shortness of Breath, Other (Dyspnea) Physical Examination - Physical Exam General: Alert, Oriented x3, Other (Uncomfortable) HEENT: Atraumatic, Normocephalic, PERRLA Respiratory: Normal air movement, Dull Cardiovascular: Normal pulses, Normal S1 S2, Irregular heart rate/rhythm (Tachycardia) Capillary refill: <2 Seconds Gastrointestinal: Normal bowel sounds, Soft and benign Musculoskeletal: No swelling Integumentary: No rashes Neurological: Normal speech, Normal tone - Studies Laboratory Data (last 24 hrs) 04/21/24 04/21/24 04/21/24 13:18 13:18 13:18 WBC 16.20 H Hgb 13.2 Hct 40.8 Plt Count 384 PT 11.5 INR 1.05 APTT 24.8 Sodium 136 Potassium 3.9 BUN 25 H Creatinine 0.71 Glucose 161 H Magnesium 1.8 Total Bilirubin 1.2 H AST 24 ALT 61 H Alkaline Phosphatase 80 Assessment and Plan - Plan Assessment and plan Acute hypoxic respiratory failure secondary to COPD exacerbation Leukocytosis secondary to steroid use Lactic acidosis CXRThe lungs are emphysematous but grossly clear. The heart is normal in size. No displaced fractures. IMPRESSION: No acute intrathoracic process suspected." CTA chest reports " No evidence of pulmonary thromboembolism. No acute aortic finding demonstrated. Prominent diffuse COPD pattern is present. Mild lingular atelectasis. No significant pericardial or pleural fluid. No concerning bony finding. IMPRESSION: No evidence of pulmonary thromboembolism." WBC 16.2, lactic acid 2.1, heart rate 134, respirations 30 Oxygen supplementation, she has home O2 in place Nebulized treatment Steroids Azithromycin Aldactone History of chronic back pain History of osteoarthritis History of sciatica History of scoliosis Continue home medication Supportive care DVT PPx Lovenox Full code LOS 2 to 3 days - Advance Directives Does patient have a Living Will: No Does patient have a Durable POA for Healthcare: No
[2024-04-21] MEDS ORDERED: ACETAMINOPHEN 500 MG TAB PO PRN (15:37)
--- NOTE | 2024-04-21 15:44 | RAD REPORT ---
EXAM DESCRIPTION: CT - Chest For Pe Angio - 04/21/2024 3:23 pm CLINICAL HISTORY: Chest pain. DYSPNEA COMPARISON: Chest For Pe Angio dated 02/27/2024 TECHNIQUE: CT angiogram of the pulmonary arteries was performed with MIP. All CT scans are performed using dose optimization technique as appropriate and may include automated exposure control or mA/KV adjustment according to patient size. FINDINGS: No evidence of pulmonary thromboembolism. No acute aortic finding demonstrated. Prominent diffuse COPD pattern is present. Mild lingular atelectasis. No significant pericardial or pleural fluid. No concerning bony finding. IMPRESSION: No evidence of pulmonary thromboembolism. Prominent COPD.
[2024-04-21] MEDS ORDERED: MORPHINE 4 MG/ML SYR IV PRN (15:57)
[2024-04-21] MEDS ORDERED: GABAPENTIN 300 MG CAP PO PRN (15:58)
[2024-04-21] MEDS: ENOXAPARIN 40 MG/0.4 ML SQ SCH ×2 (16:00→16:05)
[2024-04-21] MEDS: AZITHROMYCIN 250 MG TAB PO SCH (16:12)
[2024-04-21] MEDS: ROFLUMILAST 500 MCG TABLET PO SCH (17:00)
[2024-04-21 17:31] LABS: Arterial Blood Carboxyhemoglob 1.5 % (0-1.5); Blood Gas Oxyhemoglobin 94.9 % (94-97); Blood Gas THB 12.5 g/dl (12-18)
[2024-04-21] MEDS ORDERED: IPRATROPIUM BROM 0.5MG/2.5ML NEB SCH ×2 (19:00)
[2024-04-21] MEDS ORDERED: ALBUTEROL INHALER 200 PUFF/6.7 GM IH PRN (20:58)
[2024-04-21] MEDS ORDERED: acetaZOLAMIDE 250 MG TAB PO SCH (21:00)
[2024-04-21] MEDS ORDERED: SUCRALFATE 1 GM TABLET PO SCH (21:00)
[2024-04-21] MEDS ORDERED: GABAPENTIN 300 MG CAP PO SCH (21:00)
[2024-04-21] MEDS ORDERED: SPIRONOLACTONE 25 MG TABLET PO SCH (21:00)
[2024-04-21] MEDS: MAGNESIUM OXIDE 400 MG TAB PO SCH (21:00)
[2024-04-21] MEDS: ARFORMOTEROL TARTRATE 15 MCG/2 ML VIAL.NEB NEB SCH (21:17)
[2024-04-21] MEDS: METOPROLOL XL 25 MG TAB PO SCH (22:01)
[2024-04-21] MEDS: predniSONE 20 MG TAB PO SCH (22:01)
[2024-04-21] MEDS: ALPRAZOLAM 0.25 MG TABLET PO SCH (22:02)
[2024-04-21] MEDS: ATORVASTATIN 40 MG TAB PO SCH (22:02)
[2024-04-21] MEDS: ZOLPIDEM TARTRATE 10 MG TABLET PO SCH (22:02)
[2024-04-22 02:03] VITALS: BMI 24.4
[2024-04-22 03:51] LABS: Absolute Basophils 0.1 K/uL (0-0.5); Absolute Lymphocytes (CBC) 0.5 K/uL (0.7-4.9); Absolute Monocytes 0.4 K/uL (0.1-1.3); Absolute Neutrophil 12.6 K/uL (1.8-8.0); Basophils % 0.7 % (0-1.3); Eosinophils % 0.3 % (0-4.4); Hematocrit 35.9 % (36.0-45.0); Hemoglobin 12.2 g/dL (12.0-15.0); Lymphocytes % 3.4 % (15.3-44.8); MCH 32.9 pg (27.0-35.0); MCHC 33.8 g/dL (32.0-36.0); MCV 97.3 fL (80-100); MPV 7.4 fL (7.6-11.3); Monocytes % 2.7 % (3.3-12.3); Neutrophils % 92.9 % (41.7-73.7); Platelets 305 thou/uL (152-406); Red Cell Distribution Width 16.9 % (12.1-15.2)
[2024-04-22 04:06] LABS: Anion Gap 7.4 mEq/L (5.0-15.0); Magnesium 2.3 mg/dL (1.6-2.4); Phosphorus 4.8 mg/dL (2.5-4.9); Potassium 4.4 mEq/L (3.5-5.1); Troponin High Sensitivity 12.3 pg/mL (<58.9)
[2024-04-22] MEDS: SUCRALFATE 1 GM TABLET PO SCH (08:18)
[2024-04-22] MEDS: PANTOPRAZOLE 40MG TABLET PO SCH (08:18)
[2024-04-22] MEDS: DULOXETINE 30 MG CAP PO SCH (08:18)
[2024-04-22] MEDS: ASPIRIN 81 MG CHEWABLE TABLET PO SCH (08:19)
[2024-04-22] MEDS: MONTELUKAST 10 MG TAB PO SCH (08:19)
[2024-04-22] MEDS: LIDOCAINE 4% PATCH TOP SCH (08:19)
[2024-04-22] MEDS ORDERED: HOME MED 1 EA UNK (Duloxetine Hcl [Duloxetine Hcl] 60 MG Capsule.Dr) PO SCH (09:00)
[2024-04-22] MEDS ORDERED: SPIRONOLACTONE 25 MG TABLET PO SCH (09:00)
[2024-04-22] MEDS: HYDROCODONE/APAP 5/325 MG TAB PO PRN (09:29)
--- NOTE | 2024-04-22 09:34 | P.PN ---
Subjective Date of Service: 04/22/24 Chief Complaint: COPD exacerbation Subjective: Improving (Patient is slightly better she was just recently discharged from rehab was very weak currently she fell out of her truck dyspnea on mild exertion) Review of Systems General: Weakness Respiratory: Shortness of Breath Physical Examination - Vital Signs Temperature: 97.3 F Blood Pressure: 139/67 Pulse: 93 Respirations: 14 Pulse Ox (%): 99 - Physical Exam General: Alert, In no apparent distress, Oriented x3 Respiratory: Expiratory wheezes Cardiovascular: No edema, Regular rate/rhythm, Normal S1 S2 - Studies Laboratory Data (last 24 hrs) 04/21/24 04/21/24 04/21/24 13:18 13:18 13:18 WBC 16.20 H Hgb 13.2 Hct 40.8 Plt Count 384 PT 11.5 INR 1.05 APTT 24.8 Sodium 136 Potassium 3.9 BUN 25 H Creatinine 0.71 Glucose 161 H Magnesium 1.8 Total Bilirubin 1.2 H AST 24 ALT 61 H Alkaline Phosphatase 80 Assessment And Plan - Current Problems (Diagnosis) (1) Chronic respiratory failure Current Visit: Yes Status: Acute Plan: Patient has chronic respiratory failure from terminal COPD. Admitted again may benefit from noninvasive ventilator to reduce hospital admissions gases shows hypoxemia hypercarbia also add Zithromax Daliresp scheduled bronchodilators prednisone also add spironolactone and Diamox continue with scheduled bronchodilators physical therapy trial of BiPAP Qualifiers: Respiratory failure complication: hypoxia and hypercapnia Qualified Code(s): J96.11 - Chronic respiratory failure with hypoxia; J96.12 - Chronic respiratory failure with hypercapnia
[2024-04-22] MEDS: ROFLUMILAST 500 MCG TABLET PO SCH (10:22)
[2024-04-22] MEDS: acetaZOLAMIDE 250 MG TAB PO SCH (10:22)
[2024-04-22] MEDS: ENOXAPARIN 40 MG/0.4 ML SQ SCH (10:22)
[2024-04-22] MEDS: SPIRONOLACTONE 25 MG TABLET PO SCH (10:22)
[2024-04-22] MEDS: IPRATROPIUM BROM 0.5MG/2.5ML IH SCH (13:35)
--- NOTE | 2024-04-22 16:52 | EKG ---
Test Date: 2024-04-21 Test Time: 13:33:04 Directional Survey Drafter: SRAVANI MEASUREMENT RESULTS: Intervals: Rate: 130 WA: 128 QRSD: 80 QT: 298 QTc: 438 [place]: P: 84 WA: 128 QRS: 85 T: 79 INTERPRETIVE STATEMENTS: Sinus tachycardia Right atrial enlargement Nonspecific ST abnormality Abnormal ECG Compared to ECG 04/11/2024 17:56:37 Atrial abnormality now present ST (T wave) deviation now present Sinus rhythm no longer present Electronically Signed On 04-22-24 16:48:43 CDT by Spencer Figueroa
[2024-04-23 02:57] LABS: Absolute Lymphocytes (CBC) 0.5 K/uL (0.7-4.9); Absolute Monocytes 0.5 K/uL (0.1-1.3); Absolute Neutrophil 11.6 K/uL (1.8-8.0); Basophils % 0.3 % (0-1.3); Eosinophils % 0.2 % (0-4.4); Hemoglobin 11.1 g/dL (12.0-15.0); Lymphocytes % 3.8 % (15.3-44.8); MCH 32.9 pg (27.0-35.0); MCHC 33.7 g/dL (32.0-36.0); MCV 97.6 fL (80-100); MPV 7.8 fL (7.6-11.3); Neutrophils % 91.7 % (41.7-73.7); Platelets 300 thou/uL (152-406); RBC Red Blood Cell Count 3.38 M/uL (3.86-4.86); Red Cell Distribution Width 16.6 % (12.1-15.2)
[2024-04-23 03:16] LABS: Anion Gap 6.8 mEq/L (5.0-15.0); Magnesium 2.4 mg/dL (1.6-2.4); Phosphorus 3.8 mg/dL (2.5-4.9); Potassium 3.8 mEq/L (3.5-5.1)
[2024-04-23] MEDS: AZITHROMYCIN 250 MG TAB PO SCH (08:53)
[2024-04-23] MEDS: POTASSIUM CL SA 10 MEQ TAB PO ONE (08:54)
--- NOTE | 2024-04-23 09:58 | P.PN ---
Subjective Date of Service: 04/23/24 Chief Complaint: COPD exacerbation Subjective: Improving (Patient is improving no change slept well tolerated BiPAP still dyspneic on exertion) Review of Systems 10-point ROS is otherwise unremarkable General: Weakness Respiratory: Shortness of Breath Physical Examination - Vital Signs Temperature: 96.9 F Blood Pressure: 145/83 Pulse: 80 Respirations: 16 Pulse Ox (%): 100 - Physical Exam General: Alert, In no apparent distress, Oriented x3 Respiratory: Clear to auscultation bilaterally, Diminished Cardiovascular: No edema, Regular rate/rhythm, Normal S1 S2 Assessment And Plan - Current Problems (Diagnosis) (1) Chronic respiratory failure Current Visit: Yes Status: Acute Plan: Patient has chronic respiratory failure secondary to severe COPD and will benefit from a noninvasive ventilator to prevent readmissions to the hospital she is currently stable limited dyspneic on mild exertion she has had repeated hospital admissions labs chemistries medication list reviewed no change continue with present therapy to go home on trilogy Qualifiers: Respiratory failure complication: hypoxia and hypercapnia Qualified Code(s): J96.11 - Chronic respiratory failure with hypoxia; J96.12 - Chronic respiratory failure with hypercapnia
[2024-04-23] MEDS: ONDANSETRON 4 MG/2 ML VIAL IV PRN (11:16)
[2024-04-23 16:30] LABS: Sqamous Epithelial None Seen /HPF (None Seen); Urine Bacteria None Seen /HPF (<20); Urine Culture Reflex Order NOT NEEDED; Urine RBC <5 /HPF (None Seen); Urine WBC <5 /HPF (<5)
[2024-04-23 16:31] LABS: Specific Gravity 1.015 (1.005-1.030); Urine Bilirubin NEGATIVE (Negative); Urine Blood Negative (Negative); Urine Clarity Extremely Turbid (Clear); Urine Color Light-Yellow (Yellow); Urine Glucose NEGATIVE (Negative); Urine Ketones NEGATIVE (Negative); Urine Microscopic Reflex YN NO UMIC; Urine Nitrite NEGATIVE (Negative); Urine Protein TRACE (Negative); Urine Urobilinogen Normal (Normal); Urine pH 7.5 (5.0-7.0)
[2024-04-24 03:25] LABS: Absolute Basophils 0.1 K/uL (0-0.5); Absolute Lymphocytes (CBC) 0.7 K/uL (0.7-4.9); Absolute Monocytes 0.8 K/uL (0.1-1.3); Absolute Neutrophil 11.4 K/uL (1.8-8.0); Basophils % 0.6 % (0-1.3); Eosinophils % 0.3 % (0-4.4); Hematocrit 32.1 % (36.0-45.0); Hemoglobin 10.7 g/dL (12.0-15.0); Lymphocytes % 5.4 % (15.3-44.8); MCH 32.5 pg (27.0-35.0); MCHC 33.4 g/dL (32.0-36.0); MCV 97.2 fL (80-100); MPV 8.2 fL (7.6-11.3); Monocytes % 6.3 % (3.3-12.3); Neutrophils % 87.4 % (41.7-73.7); Platelets 300 thou/uL (152-406); Red Cell Distribution Width 16.3 % (12.1-15.2)
[2024-04-24 03:46] LABS: Anion Gap 3.6 mEq/L (5.0-15.0); Magnesium 2.2 mg/dL (1.6-2.4); Phosphorus 3.3 mg/dL (2.5-4.9); Potassium 3.6 mEq/L (3.5-5.1)
[2024-04-24] MEDS: POTASSIUM CL SA 10 MEQ TAB PO ONE (08:16)
--- NOTE | 2024-04-24 09:30 | P.PN ---
Subjective Date of Service: 04/24/24 Chief Complaint: COPD exacerbation Subjective: Other (No change in patient's condition she still continues to feel weak dyspnea on exertion continues BiPAP) Review of Systems General: Weakness Respiratory: Shortness of Breath Physical Examination - Vital Signs Temperature: 97.4 F Blood Pressure: 127/69 Pulse: 76 Respirations: 16 Pulse Ox (%): 97 - Physical Exam General: Alert, In no apparent distress, Oriented x3 Respiratory: Clear to auscultation bilaterally, Diminished Cardiovascular: No edema, Regular rate/rhythm Assessment And Plan - Current Problems (Diagnosis) (1) Chronic respiratory failure Current Visit: Yes Status: Acute Plan: Patient has chronic respiratory failure secondary to terminal COPD. With recurrent weakness and falls IV has been requested continue with physical therapy plan for discharge to SNF tomorrow patient's vital signs labs all unremarkable Qualifiers: Respiratory failure complication: hypoxia and hypercapnia Qualified Co de(s): J96.11 - Chronic respiratory failure with hypoxia; J96.12 - Chronic respiratory failure with hypercapnia
[2024-04-25 05:16] LABS: Absolute Lymphocytes (CBC) 0.7 K/uL (0.7-4.9); Absolute Monocytes 0.9 K/uL (0.1-1.3); Absolute Neutrophil 9.6 K/uL (1.8-8.0); Basophils % 0.1 % (0-1.3); Eosinophils % 0.1 % (0-4.4); Hematocrit 31.3 % (36.0-45.0); Hemoglobin 10.4 g/dL (12.0-15.0); Lymphocytes % 6.4 % (15.3-44.8); MCH 32.4 pg (27.0-35.0); MCHC 33.4 g/dL (32.0-36.0); MCV 96.8 fL (80-100); MPV 7.7 fL (7.6-11.3); Monocytes % 7.8 % (3.3-12.3); Neutrophils % 85.6 % (41.7-73.7); Platelets 284 thou/uL (152-406); RBC Red Blood Cell Count 3.23 M/uL (3.86-4.86); Red Cell Distribution Width 16.4 % (12.1-15.2)
[2024-04-25 05:26] LABS: Anion Gap 6.9 mEq/L (5.0-15.0); Magnesium 2.4 mg/dL (1.6-2.4); Phosphorus 2.8 mg/dL (2.5-4.9); Potassium 3.9 mEq/L (3.5-5.1)
[2024-04-25 05:54] LABS: Band Neutrophils 6 % (0-1); Basophilic Stippling 1+; Blood Morphology Comment NOTED (NOT SEEN); Differential Total Cells Count 100; Lymphocytes 4 % (15-42); Monocytes 5 % (0-10); Platelet Estimate ADEQ; Reactive Lymphocytes 2 %; Segmented Neutrophils 83 % (40-80)
[2024-04-25 07:19] VITALS: O2SAT 94
[2024-04-25] MEDS: POTASSIUM 25 MEQ EFFERV TAB PO ONE (08:33)
--- NOTE | 2024-04-25 12:24 | P.DS ---
Admission Date: 04/21/24 Discharge Date: 04/25/24 Disposition: TRANSFER TO SNF - REHAB Discharge Condition: FAIR Reason for Admission: COPD exacerbation - Problems (1) Chronic respiratory failure Current Visit: Yes Status: Acute Qualifiers: Respiratory failure complication: hypoxia and hypercapnia Qualified Code(s): J96.11 - Chronic respiratory failure with hypoxia; J96.12 - Chronic respiratory failure with hypercapnia Brief History of Present Illness: Patient is 73 years of age recurrent admission to the hospital with weakness and dyspnea Hospital Course: Patient has a history of terminal COPD was just recently discharged from rehab came back again apparently she was very weak and had fallen to the hospital condition remained stable evaluated for noninvasive ventilator no significant change in her medications Patient's condition remained stable she continued to feel very weak difficulty walking to the bathroom patient's white count was mildly elevated patient has chronic hypercapnic respiratory failure she was discharged to SNF at the time of discharge patient alert oriented responsive cooperative vital signs all stable chest diminished air entry cardiovascular system heart sounds normal CT pulmonary angiogram no evidence of thromboembolism and to continue low-dose prednisone I have also added Zithromax and Daliresp Vital Signs/Physical Exam: Temp Pulse Resp BP Pulse Ox 97.0 F 80 18 116/78 95 04/25/24 08:00 04/25/24 08:31 04/25/24 08:00 04/25/24 08:31 04/25/24 08:00 Laboratory Data at Discharge: WBC 11.30 thou/uL (4.3-10.9) H 04/25/24 04:45 Hgb 10.4 g/dL (12.0-15.0) L 04/25/24 04:45 Hct 31.3 % (36.0-45.0) L 04/25/24 04:45 Plt Count 284 thou/uL (152-406) 04/25/24 04:45 PT 11.5 SECONDS (9.5-12.5) 04/21/24 13:18 INR 1.05 04/21/24 13:18 APTT 24.8 SECONDS (24.3-36.9) 04/21/24 13:18 Sodium 139 mEq/L (136-145) 04/25/24 04:45 Potassium 3.9 mEq/L (3.5-5.1) 04/25/24 04:45 BUN 27 mg/dL (7-18) H 04/25/24 04:45 Creatinine 0.49 mg/dL (0.55-1.02) L 04/25/24 04:45 Glucose 123 mg/dL (74-106) H 04/25/24 04:45 Phosphorus 2.8 mg/dL (2.5-4.9) 04/25/24 04:45 Magnesium 2.4 mg/dL (1.6-2.4) 04/25/24 04:45 Total Bilirubin 1.2 mg/dL (0.2-1.0) H 04/21/24 13:18 AST 24 U/L (15-37) 04/21/24 13:18 ALT 61 U/L (13-56) H 04/21/24 13:18 Alkaline Phosphatase 80 U/L (45-117) 04/21/24 13:18 Home Medications: ALPRAZolam [Xanax*] 0.25 mg PO BID 10/03/15 Aspirin Chewable [Aspirin Chewable*] 81 mg PO DAILY tab.chew 01/06/23 Albuterol Sulfate [Proair Respiclick] 90 mcg IH Q6HP PRN 02/27/24 Atorvastatin Calcium [Lipitor] 40 mg PO BEDTIME 02/27/24 Duloxetine HCl 60 mg PO DAILY 02/27/24 Metoprolol Succinate [Toprol Xl] 25 mg PO BID 02/27/24 Montelukast [Singulair*] 10 mg PO DAILY 02/27/24 Pantoprazole [Protonix Tab*] 40 mg PO DAILY 02/27/24 Spironolactone [Aldactone*] 25 mg PO DAILY 30 Days #30 tab 03/04/24 Sucralfate [Carafate*] 1 gm PO SEECOM 04/11/24 Gabapentin 300 mg PO TID 04/13/24 Hydrocodone 5/APAP 325 [[place] 5/325*] 1 tab PO Q4H PRN #45 tab 04/20/24 Lidocaine 4% Patch [Lidoderm 5% Patch*] 1 patch TOP DAILY pat 04/20/24 Magnesium Oxide [Mag 0X*] 400 mg PO BID tab 04/20/24 predniSONE [Deltasone*] 10 mg PO DAILY #30 tab 04/20/24 Zolpidem Tartrate [Ambien] 10 mg PO BEDTIME 04/21/24 Azithromycin Tab [Zithromax*] 250 mg PO DAILY 15 Days #15 tab 04/23/24 Fluticasone/Umeclidin/Vilanter [Trelegy Ellipta 100-62.5-25] 1 each IH DAILY 30 Days #30 aero 04/23/24 Roflumilast [Daliresp*] 500 mcg PO DAILY 30 Days #30 tab 04/23/24 New Medications: Roflumilast [Daliresp*] 500 mcg PO DAILY 30 Days #30 tab Fluticasone/Umeclidin/Vilanter [Trelegy Ellipta 100-62.5-25] 1 each IH DAILY 30 Days #30 aero Azithromycin Tab [Zithromax*] 250 mg PO DAILY 15 Days #15 tab Diet: Regular Activity: Ad guy Followup: Ivan Thomas MD [ACTIVE - CAN ADMIT] - NONE,NONE [Primary Care Provider] -
[2024-04-25 13:41] VITALS: BP 116/53; TEMP 97.5
== END 2024-04-25 14:04 | DRG 189 ==
LOC: ER 12:53 → 2ND 20:05
PROVIDERS: ADMIT Internal Medicine Sleep Medicine; ATTEND Internal Medicine Sleep Medicine
PROC: 4A033R1 Measurement of Arterial Saturation, Peripheral, Percutaneous Approach (ICD-10-PCS; principal; 2024-04-21)
PROC: 5A09357 Assistance with Respiratory Ventilation, Less than 24 Consecutive Hours, Continuous Positive Airway Pressure (ICD-10-PCS; 2024-04-21)
DX: J96.01 Acute respiratory failure with hypoxia (principal); J44.1 Chronic obstructive pulmonary disease with (acute) exacerbation; E87.20 Acidosis, unspecified; M19.90 Unspecified osteoarthritis, unspecified site; M41.9 Scoliosis, unspecified; G89.29 Other chronic pain; M54.9 Dorsalgia, unspecified; M54.30 Sciatica, unspecified side; D72.829 Elevated white blood cell count, unspecified; T38.0X5A Adverse effect of glucocorticoids and synthetic analogues, initial encounter; Z79.82 Long term (current) use of aspirin; Z99.81 Dependence on supplemental oxygen; Z79.52 Long term (current) use of systemic steroids; Z79.899 Other long term (current) drug therapy; Z90.710 Acquired absence of both cervix and uterus
CPT/HCPCS: 36415; 36600; 71045; 71275; 80048; 80076; 81003; 82805; 83605; 83735; 83880; 84100; 84484; 85025; 85610; 85730; 87040; 93005; 94640; 94660; 96365; 96366; 97116; 97161; 97530; 99285; J1650; J2001; J2405; J7040; J7512; J7605; J7614; J7644; Q9967

== ENCOUNTER 2024-05-17 12:13 | Inpatient (IN) | payer OTHER ==
[2024-05-17 13:10] LABS: Absolute Lymphocytes (CBC) 0.7 K/uL (0.7-4.9); Absolute Monocytes 0.8 K/uL (0.1-1.3); Absolute Neutrophil 6.9 K/uL (1.8-8.0); Basophils % 0.3 % (0-1.3); Eosinophils % 0.1 % (0-4.4); Hematocrit 37.5 % (36.0-45.0); Hemoglobin 12.6 g/dL (12.0-15.0); Lymphocytes % 8.5 % (15.3-44.8); MCH 32.5 pg (27.0-35.0); MCHC 33.7 g/dL (32.0-36.0); MCV 96.4 fL (80-100); MPV 8.1 fL (7.6-11.3); Monocytes % 9.7 % (3.3-12.3); Neutrophils % 81.4 % (41.7-73.7); Platelets 276 thou/uL (152-406); RBC Red Blood Cell Count 3.89 M/uL (3.86-4.86); Red Cell Distribution Width 14.7 % (12.1-15.2)
[2024-05-17 13:18] LABS: PT Prothrombin Time 13.1 SECONDS (9.4-12.5); PTT, Activated Partial Thromb 30.8 SECONDS (24.3-36.9); Protime INR 1.2
[2024-05-17 13:31] LABS: Albumin 3.5 g/dL (3.4-5.0); Albumin/Globulin Ratio 0.9 (1.1-1.8); Bilirubin Total 0.7 mg/dL (0.2-1.0); Globulin 3.8 g/dL (2.3-3.5); Protein, Total 7.3 g/dL (6.4-8.2); Troponin High Sensitivity 8.4 pg/mL (<58.9)
[2024-05-17] MEDS ORDERED: VANCOMYCIN 1 GM/VIAL ONE (13:31)
[2024-05-17] MEDS ORDERED: CEFEPIME 2 GM VIAL ONE (13:31)
[2024-05-17] MEDS ORDERED: NA CHLORIDE 0.9% 250 ML ONE (13:31)
[2024-05-17] MEDS ORDERED: AZITHROMYCIN 500 MG INJ IVPB ONE (13:31)
[2024-05-17] MEDS ORDERED: NA CHLORIDE 0.9% 2,000 ML ONE (13:31)
[2024-05-17] MEDS ORDERED: NA CHLORIDE 0.9% 100 ML ONE (13:32)
--- NOTE | 2024-05-17 13:32 | RAD REPORT ---
EXAM DESCRIPTION: Keven Single View05/17/2024 1:06 pm CLINICAL HISTORY: sob COMPARISON: March 2024 FINDINGS: Lungs are mildly to moderately hyperaerated The lungs appear clear of acute infiltrate. The heart is normal size IMPRESSION: No acute abnormalities displayed
--- NOTE | 2024-05-17 13:51 | ER ---
Nurse's Notes [facility] Name: Carmenza Saldivar Age: 73 yrs Sex: Female : 1950 Arrival Date: 05/17/2024 Time: 12:13 Bed 14 Private MD: Diagnosis: Acute respiratory failure with hypoxia;Tachycardia, unspecified Presentation: 05/17 12:32 Chief complaint: Patient states: "I've had SOB for a long time, months, and some mb9 chronic back pain.". Coronavirus screen: Vaccine status: Patient reports receiving the 2nd dose of the covid vaccine. Ebola Screen: No symptoms or risks identified at this time. Initial Sepsis Screen: Does the patient meet any 2 criteria? HR > 90 bpm. Does the patient have a suspected source of infection? No. Patient's initial sepsis screen is negative. Risk Assessment: Do you want to hurt yourself or someone else? Patient reports no desire to harm self or others. Onset of symptoms was May 17, 2024. 12:32 Method Of Arrival: Wheelchair [facility] 12:32 Acuity: ROBIN 2 mb9 Triage Assessment: 12:34 General: Appears uncomfortable, Behavior is cooperative. Pain: Complains of pain in mb9 back. EENT: No signs and/or symptoms were reported regarding the EENT system. Neuro: Level of Consciousness is awake, alert, obeys commands, Oriented to person, place, time, situation, Appropriate for age. Cardiovascular: Patient's skin is warm and dry. Rhythm is sinus tachycardia. Respiratory: Reports cough that is. GI: No signs and/or symptoms were reported involving the gastrointestinal system. : No signs and/or symptoms were reported regarding the genitourinary system. Derm: Skin is pink, warm \\T\\ dry. Musculoskeletal: Range of motion: intact in all extremities. Historical: - Allergies: 12:34 No Known Allergies; mb9 - PMHx: 12:23 02 dependent 2LNC PRN; chronic back pain; COPD; osteoarthritis; sciatica; scoliosis; mb9 - PSHx: 12:23 hysterectomy; mb9 - Immunization history:: Adult Immunizations up to date. - Infectious Disease History:: Denies. - Social history:: Smoking status: Patient denies any tobacco usage or history of. Screenin:50 [facility] ED Fall Risk Assessment (Adult) History of falling in the last 3 months, nj1 including since admission No falls in past 3 months (0 pts) Confusion or Disorientation No (0 pts) Intoxicated or Sedated No (0 pts) Impaired Gait Yes (1 pt) Mobility Assist Device Used Yes (1 pt) Altered Elimination No (0 pt) Score/Fall Risk Level 0 - 2 = Low Risk Oriented to surroundings, Maintained a safe environment, Hourly rounding (assess needs \\T\\ fall precautionary measures) done. Abuse screen: Denies threats or abuse. Denies injuries from another. Nutritional screening: No deficits noted. Tuberculosis screening: No symptoms or risk factors identified. Assessment: 12:35 General: Appears uncomfortable, Behavior is calm, cooperative, appropriate for age. nj1 Neuro: Level of Consciousness is awake, alert, obeys commands, Oriented to person, place, situation. Cardiovascular: Patient's skin is warm and dry. Respiratory: Airway is patent Respiratory effort is even, slightly labored Respiratory pattern is tachypnea. 12:35 Respiratory: Breath sounds are diminished bilaterally. nj1 14:07 Reassessment: Patient appears in no apparent distress at this time. Patient and/or nj1 family updated on plan of care and expected duration. Pain level reassessed. Patient is alert, oriented x 3, equal unlabored respirations, skin warm/dry/pink. Respiratory: Airway is patent Respiratory effort is even, unlabored. 15:00 Reassessment: Patient appears in no apparent distress at this time. Patient and/or nj1 family updated on plan of care and expected duration. Pain level reassessed. Patient is alert, oriented x 3, equal unlabored respirations, skin warm/dry/pink. 16:00 Reassessment: Patient appears in no apparent distress at this time. Patient and/or nj1 family updated on plan of care and expected duration. Pain level reassessed. Patient is alert, oriented x 3, equal unlabored respirations, skin warm/dry/pink. 16:28 Reassessment: Patient appears in no apparent distress at this time. Patient and/or kj2 family updated on plan of care and expected duration. Pain level reassessed. Patient is alert, oriented x 3, equal unlabored respirations, skin warm/dry/pink. 17:10 General: Appears distressed, uncomfortable. nj1 17:10 Respiratory: Respiratory effort is labored. nj1 17:12 Reassessment: Call RT for Airvo per Dr Ball instructions. nj1 17:15 Reassessment: Call to Chapin Pandey NP hospitalist to advised of patient status. No [facility] verbal orders at this time. 17:29 Reassessment: Patient appears in no apparent distress at this time. Patient and/or nj1 family updated on plan of care and expected duration. Pain level reassessed. Patient is alert, oriented x 3, equal unlabored respirations, skin warm/dry/pink. Vital Signs: 12:32 BP 140 / 89; Pulse 140; Resp 22; Temp 97.4(O); Pulse Ox 78% on 2 lpm NC; Weight 68.04 mb9 kg; Height 5 ft. 3 in. ; Pain 9/10; 12:40 Pulse 132; Resp 30; Pulse Ox 87% on 6 lpm NC; nj1 12:57 BP 147 / 91; Pulse 125; Resp 25; Pulse Ox 94% on 6 lpm Highflow; nj1 13:15 BP 148 / 96; Pulse 124; Resp 25; Pulse Ox 93% on 6 lpm [place]flow; nj1 14:07 BP 145 / 81; Pulse 113; Resp 22; Pulse Ox 96% on 6 lpm Highflow; nj1 15:00 BP 153 / 72; Pulse 103; Resp 23; Pulse Ox 98% on 6 lpm Highflow; nj1 16:00 BP 144 / 86; Pulse 108; Resp 28; Pulse Ox 96% ; Pain 9/10; nj1 17:10 BP 124 / 85; Pulse 131; Resp 27; Pulse Ox 73% on 6 lpm Highflow; nj1 17:27 BP 145 / 61; Pulse 112; Resp 29; Pulse Ox 94% on 25 lpm Airvo; FiO2 60 %; nj1 12:32 Body Mass Index 26.57 (68.04 kg, 160.02 cm) mb9 12:32 Pain Scale: Adult mb9 16:00 Pain Scale: Adult in1 ED Course: 12:14 Patient arrived in ED. rg4 12:24 Arm band placed on. mb9 12:26 Chris Ball DO is Attending Physician. ms3 12:34 Triage completed. mb9 12:40 Sissy Villalpando, RN is Primary Nurse. nj1 12:45 Notified ED physician of other Patient condition, as well as vital signs. nj1 12:55 Patient has correct armband on for positive identification. Bed in low position. Call nj1 light in reach. Side rails up X 1. Provided Education on: call light, fall precautions. 12:59 Client placed on continuous cardiac and pulse oximetry monitoring. NIBP monitoring nj1 applied. yeast supervisor on. 13:08 CXR XRAY In Process Unspecified. EDMS 13:49 Lele Wesley is Hospitalizing Provider. ms3 17:12 Notified ED physician of other Labored breathing, O2 sats 70's% on 15 LPM Highflow NC. nj1 17:45 No provider procedures requiring assistance completed. nj1 17:45 Patient admitted, IV remains in place. nj1 Administered Medications: 13:47 Drug: NS 0.9% IV (30 ml/kg) 30 ml/kg IV at bolus once; Sepsis Protocol Route: IV; Rate: jl7 bolus; Site: right antecubital; 17:45 Follow up: Response: No adverse reaction; IV Status: Completed infusion; IV Intake: nj1 2000ml 13:47 Drug: Cefepime IVPB 2 grams IVPB at 200 ml/hr once over 30 mins; (mix in NS 100 mL) jl7 Route: IVPB; Rate: 200 ml/hr; Infused Over: 30 mins; Site: right antecubital; 14:26 Follow up: Response: No adverse reaction; IV Status: Completed infusion; IV Intake: nj1 100ml 14:07 Drug: AZITHromycin IVPB 500 mg IVPB once over 1 hrs; (mix in 250 mL NS) Route: IVPB; nj1 Infused Over: 1 hrs; Site: right antecubital; 15:07 Follow up: Response: No adverse reaction; IV Status: Completed infusion; IV Intake: nj1 250ml 14:18 Drug: MethylPrednisoLONE IVP 125 mg IVP once Route: IVP; Site: right antecubital; nj1 15:00 Follow up: Response: No adverse reaction nj1 14:24 Drug: DuoNeb Nebulize (2.5 mg - 0.5 mg) 3 ml Nebulizer once Route: Nebulizer; nj1 14:48 Follow up: Response: No adverse reaction nj1 14:45 Drug: vancoMYCIN IVPB 1 grams IVPB once over 2 hrs Route: IVPB; Infused Over: 2 hrs; nj1 Site: right antecubital; 16:45 Follow up: Response: No adverse reaction; IV Status: Completed infusion; IV Intake: nj1 250ml 16:07 Drug: Hydrocodone-Acetaminophen PO (7.5 mg-325 mg) 1 tabs PO once Route: PO; nj1 17:45 Follow up: Response: No adverse reaction nj1 Medication: 17:45 VIS not applicable for this client. nj1 Intake: 14:26 IV: 100ml; Total: 100ml. nj1 15:07 IV: 250ml; Total: 350ml. nj1 16:45 IV: 250ml; Total: 600ml. nj1 17:45 IV: 2000ml; Total: 2600ml. nj1 Outcome: 13:49 Decision to Hospitalize by Provider. ms3 17:45 Admitted to Med/surg accompanied by tech, room 232, with oxygen, nj1 17:45 Condition: stable 17:45 Instructed on the need for admit, 19:20 Patient left the ED. cp4 Signatures: Dispatcher [employer] EDMS Modesta Tafoya rg4 Marvin Pavon, RN RN jl7 Chris Ball DO DO ms3 Jessica Joya, RN RN mb9 Sissy Villalpando RN RN nj1 Regi Keen cp4 Rosa Stanley, RN RN kj2 Corrections: (The following items were deleted from the chart) 12:55 12:54 No provider procedures requiring assistance completed. nj1 nj1 14:09 14:07 Pulse 113bpm; Resp 22bpm; Pulse Ox 96% 6 lpm Highflow; nj1 nj1
--- NOTE | 2024-05-17 13:51 | EDPHYS ---
Physician Documentation [facility] Name: Carmenza Saldivar Age: 73 yrs Sex: Female : 1950 Arrival Date: 05/17/2024 Time: 12:13 Bed 14 Private MD: ED Physician Chris Ball HPI: 05/17 16:29 This 73 yrs old Female presents to ER via Wheelchair with complaints of Back Pain, ms3 Shortness Of Breath. 16:29 73-year-old female with past medical history of COPD, osteoarthritis, sciatica, ms3 scoliosis, chronic back pain presents to the emergency department for shortness of breath and back pain that has been ongoing for a long time. Patient states she was discharged from the rehab hospital on . Patient rates her discomfort a 9/10. Patient endorses chills. Patient denies any alleviating or inciting factors. Historical: - Allergies: 12:34 No Known Allergies; mb9 - PMHx: 12:23 02 dependent 2LNC PRN; chronic back pain; COPD; osteoarthritis; sciatica; scoliosis; mb9 - PSHx: 12:23 hysterectomy; mb9 - Immunization history:: Adult Immunizations up to date. - Infectious Disease History:: Denies. - Social history:: Smoking status: Patient denies any tobacco usage or history of. ROS: 16:29 Constitutional: Negative for fever, and chills. Neck: Negative for injury, pain, and ms3 swelling, Cardiovascular: Negative for chest pain, and palpitations. 16:29 Respiratory: Positive for shortness of breath, Exam: 16:29 ECG was reviewed by the Attending Physician. ms3 16:29 Constitutional: This is a well developed, well nourished patient who is awake, alert, ms3 and in no acute distress. Neck: Trachea midline, no cervical lymphadenopathy. Supple, full range of motion without nuchal rigidity, or vertebral point tenderness. No Meningismus. Chest/axilla: Normal chest wall appearance and motion. Nontender with no deformity. 16:29 Cardiovascular: Rate: tachycardic, Rhythm: regular, Pulses: no pulse deficits are appreciated, Heart sounds: normal, normal S1and S2, 16:29 Respiratory: mild respiratory distress is noted, Respirations: Breath sounds: decreased breath sounds, that are moderate, are located in both bases, Vital Signs: 12:32 BP 140 / 89; Pulse 140; Resp 22; Temp 97.4(O); Pulse Ox 78% on 2 lpm NC; Weight 68.04 mb9 kg; Height 5 ft. 3 in. ; Pain 9/10; 12:40 Pulse 132; Resp 30; Pulse Ox 87% on 6 lpm NC; nj1 12:57 BP 147 / 91; Pulse 125; Resp 25; Pulse Ox 94% on 6 lpm Highflow; nj1 13:15 BP 148 / 96; Pulse 124; Resp 25; Pulse Ox 93% on 6 lpm Highflow; nj1 14:07 BP 145 / 81; Pulse 113; Resp 22; Pulse Ox 96% on 6 lpm Highflow; nj1 15:00 BP 153 / 72; Pulse 103; Resp 23; Pulse Ox 98% on 6 lpm Highflow; nj1 16:00 BP 144 / 86; Pulse 108; Resp 28; Pulse Ox 96% ; Pain 9/10; nj1 17:10 BP 124 / 85; Pulse 131; Resp 27; Pulse Ox 73% on 6 lpm Highflow; nj1 17:27 BP 145 / 61; Pulse 112; Resp 29; Pulse Ox 94% on 25 lpm Airvo; FiO2 60 %; nj1 12:32 Body Mass Index 26.57 (68.04 kg, 160.02 cm) mb9 12:32 Pain Scale: Adult mb9 16:00 Pain Scale: Adult nj1 MDM: 12:36 Patient medically screened. ms3 16:29 Differential diagnosis: CO vs CHF vs COPD exacerbation vs PNA. Data reviewed: vital ms3 signs, nurses notes, lab test result(s), EKG, radiologic studies, and as a result, I will admit patient. Consideration of Admission/Observation Patient was admitted/placed on observation. Management of patient was discussed with the following: Hospitalist: Dr Wesley. I considered the following discharge prescriptions or medication management in the emergency department Medications were administered in the Emergency Department. See MAR. Independent interpretation of the following test(s) in the Emergency Department X-Ray: My interpretation is CXR image reviewed by me shows LLL PNA. Counseling: I had a detailed discussion with the patient and/or guardian regarding the historical points, exam findings, and any diagnostic results supporting the discharge/admit diagnosis, lab results, radiology results, the need for further work-up and treatment in the hospital. ED course: Discussed necessity of admission with patient. All questions answered. Patient improved on high flow nasal cannula . 05/17 12:36 Order name: Blood Culture Adult (2) ms3 05/17 12:36 Order name: CBC with Diff; Complete Time: 13:39 ms3 05/17 12:36 Order name: Lactate w/ 2H reflex if indic.; Complete Time: 13:39 ms3 05/17 12:36 Order name: Protime (+inr); Complete Time: 13:39 ms3 05/17 12:36 Order name: Ptt, Activated; Complete Time: 13:39 ms3 05/17 12:46 Order name: BNP; Complete Time: 13:39 ms3 05/17 13:15 Order name: Troponin High Sensitivity; Complete Time: 13:39 EDMS 05/17 13:17 Order name: Comprehensive Metabolic Panel; Complete Time: 13:39 EDMS 05/17 15:09 Order name: ABG Arterial Blood Gas EDIN 05/17 15:09 Order name: Magnesium; Complete Time: 16:54 EDMS 05/17 15:09 Order name: Urinalysis w/ reflexes EDMS 05/17 15:09 Order name: Basic Metabolic Panel EDMS 05/17 15:09 Order name: Basic Metabolic Panel EDMS 05/17 15:09 Order name: CBC with Automated Diff EDMS 05/17 15:09 Order name: CBC with Automated Diff EDMS 05/17 15:09 Order name: Magnesium EDMS 05/17 15:09 Order name: Magnesium EDMS 05/17 15:09 Order name: Phosphorus EDMS 05/17 15:09 Order name: Phosphorus EDMS 05/17 15:09 Order name: Troponin High Sensitivity EDMS 05/17 15:09 Order name: Troponin High Sensitivity EDMS 05/17 15:09 Order name: Troponin High Sensitivity EDMS 05/17 16:17 Order name: ABG Arterial Blood Gas; Complete Time: 16:54 EDMS 05/17 12:37 Order name: CXR XRAY; Complete Time: 13:39 ms3 05/17 12:36 Order name: EKG; Complete Time: 12:37 ms3 05/17 15:09 Order name: CONS Physician Consult EDMS 05/17 12:36 Order name: Accucheck; Complete Time: 14:09 ms3 05/17 12:36 Order name: Cardiac monitoring; Complete Time: 12:56 ms3 05/17 12:36 Order name: EKG - Nurse/Tech; Complete Time: 12:56 ms3 05/17 12:36 Order name: IV Saline Lock - Large Bore; Complete Time: 12:56 ms3 05/17 12:36 Order name: Labs collected and sent; Complete Time: 12:56 ms3 05/17 12:36 Order name: O2 Per Protocol; Complete Time: 12:56 ms3 05/17 12:36 Order name: O2 Sat Monitoring; Complete Time: 12:57 ms3 05/17 12:36 Order name: Vital Signs; Complete Time: 12:57 ms3 EC:29 Rate is 134 beats/min. Rhythm is regular. QRS [place] is Normal. [place] interval is normal. ms3 QRS interval is normal. Clinical impression: Sinus tachycardia. Interpreted by me. Reviewed by me. Administered Medications: 13:47 Drug: NS 0.9% IV (30 ml/kg) 30 ml/kg IV at bolus once; Sepsis Protocol Route: IV; Rate: jl7 bolus; Site: right antecubital; 17:45 Follow up: Response: No adverse reaction; IV Status: Completed infusion; IV Intake: nj1 2000ml 13:47 Drug: Cefepime IVPB 2 grams IVPB at 200 ml/hr once over 30 mins; (mix in NS 100 mL) jl7 Route: IVPB; Rate: 200 ml/hr; Infused Over: 30 mins; Site: right antecubital; 14:26 Follow up: Response: No adverse reaction; IV Status: Completed infusion; IV Intake: nj1 100ml 14:07 Drug: AZITHromycin IVPB 500 mg IVPB once over 1 hrs; (mix in 250 mL NS) Route: IVPB; nj1 Infused Over: 1 hrs; Site: right antecubital; 15:07 Follow up: Response: No adverse reaction; IV Status: Completed infusion; IV Intake: nj1 250ml 14:18 Drug: MethylPrednisoLONE IVP 125 mg IVP once Route: IVP; Site: right antecubital; nj1 15:00 Follow up: Response: No adverse reaction nj 14:24 Drug: DuoNeb Nebulize (2.5 mg - 0.5 mg) 3 ml Nebulizer once Route: Nebulizer; nj1 14:48 Follow up: Response: No adverse reaction nj1 14:45 Drug: vancoMYCIN IVPB 1 grams IVPB once over 2 hrs Route: IVPB; Infused Over: 2 hrs; nj1 Site: right antecubital; 16:45 Follow up: Response: No adverse reaction; IV Status: Completed infusion; IV Intake: nj1 250ml 16:07 Drug: Hydrocodone-Acetaminophen PO (7.5 mg-325 mg) 1 tabs PO once Route: PO; nj1 17:45 Follow up: Response: No adverse reaction nj1 Disposition Summary: 05/17/24 13:49 Hospitalization Ordered Notes: Hospitalization Status: Inpatient Admission ms3 Provider: Lele Wesley ms3 Location: Telemetry/MedSurg (Inpatient) ms3 Condition: Stable ms3 Problem: new ms3 Symptoms: are unchanged ms3 Bed/Room Type: Standard ms3 Room Assignment: 232(05/17/24 17:15) bd Diagnosis - Acute respiratory failure with hypoxia ms3 - Tachycardia, unspecified ms3 Forms: - Medication Reconciliation Form ms3 - SBAR form ms3 - Leadership Thank You Letter ms3 Critical care time excluding procedures: 16:29 Critical care time: Bedside Care: 35 minutes, Consultation: 5 minutes. Total time: 40 ms3 minutes Signatures: Dispatcher [employer] EDMS Lynnette Dan Jahala, RN RN jl7 Chris Ball DO DO ms3 Jessica Joya, RN RN mb9 Sissy Villalpando RN RN nj1 Corrections: (The following items were deleted from the chart) 12:37 12:37 BLOOD CULTURE*+BA.LAB.BRZ ordered. EDMS EDMS 12:37 12:37 CBC+H.LAB.BRZ ordered. EDMS EDMS 12:37 12:37 LACTATE+C.LAB.BRZ ordered. EDMS EDMS 12:37 12:37 PROTIME (+INR)+COAG.LAB.BRZ ordered. EDMS EDMS 12:37 12:37 PTT, ACTIVATED+COAG.LAB.BRZ ordered. EDMS EDMS 13:15 12:50 Troponin High Sensitivity+C.LAB.BRZ ordered. EDMS EDMS 13:17 12:37 COMPREHENSIVE METABOLIC PANEL+C.LAB.BRZ ordered. EDMS EDMS 17:15 13:49 ms3 bd
[2024-05-17] MEDS ORDERED: ALBUTEROL 2.5 MG/3 ML NEB SOL ONE (14:10)
[2024-05-17] MEDS ORDERED: IPRATROPIUM BROM 0.5MG/2.5ML ONE (14:10)
[2024-05-17] MEDS ORDERED: METHYLPREDNISOLONE 125 MG INJ ONE (14:11)
--- NOTE | 2024-05-17 14:26 | P.HP ---
Certification for Inpatient Patient admitted to: Inpatient With expected LOS: >2 Midnights Patient will require the following post-hospital care: None Practitioner: I am a practitioner with admitting privileges, knowledge of patient current condition, hospital course, and medical plan of care. Services: Services provided to patient in accordance with Admission requirements found in Title 42 Section 412.3 of the Code of Federal Regulations Patient History Date of Service: 05/17/24 Reason for admission: Acute hypoxic respiratory failure History of Present Illness: Carmenza Saldivar is a 73-year-old female with past medical history of oxygen dependent terminal COPD, osteoarthritis, sciatica, scoliosis, who presents to the ED with chief complaint of difficulty breathing specifically dyspnea on exertion as well as shortness of breath at rest. She reports arriving home from inpatient rehab and did not feel any better. She felt as if she was able to walk at inpatient rehab but her limitation was her ability to breathe while walking. She has had multiple admission for shortness of breath. On examination, she is short of breath while speaking, diminished breath sounds to LLL, tachycardic, and tachypneic, on high flow oxygen. CXR reports "Lungs are mildly to moderately hyperaerated. The lungs appear clear of acute infiltrate. The heart is normal size. IMPRESSION: No acute abnormalities displayed Initial vitals BP 140 / 89; Pulse 140; Resp 22; Temp 97.4(O); Pulse Ox 78% on 2 lpm NC. Laboratory evaluation sodium 135, potassium 3.0, CO2 34, serum glucose 5-7, troponin 8.4, BNP 140. Carmenza will be admitted to hospital service for further evaluation and treatment, Dr. Thomas consulted. Allergies No Known Allergies Allergy (Verified 04/11/24 21:44) Home Medications: ALPRAZolam [Xanax*] 0.25 mg PO BID 10/03/15 Aspirin Chewable [Aspirin Chewable*] 81 mg PO DAILY tab.chew 01/06/23 Albuterol Sulfate [Proair Respiclick] 90 mcg IH Q6HP PRN 02/27/24 Atorvastatin Calcium [Lipitor] 40 mg PO BEDTIME 02/27/24 Duloxetine HCl 60 mg PO DAILY 02/27/24 Metoprolol Succinate [Toprol Xl] 25 mg PO BID 02/27/24 Montelukast [Singulair*] 10 mg PO DAILY 02/27/24 Pantoprazole [Protonix Tab*] 40 mg PO DAILY 02/27/24 Spironolactone [Aldactone*] 25 mg PO DAILY 30 Days #30 tab 03/04/24 Sucralfate [Carafate*] 1 gm PO SEECOM 04/11/24 Gabapentin 300 mg PO TID 04/13/24 Hydrocodone 5/APAP 325 [Branch 5/325*] 1 tab PO Q4H PRN #45 tab 04/20/24 Lidocaine 4% Patch [Lidoderm 5% Patch*] 1 patch TOP DAILY pat 04/20/24 Magnesium Oxide [Mag 0X*] 400 mg PO BID tab 04/20/24 predniSONE [Deltasone*] 10 mg PO DAILY #30 tab 04/20/24 Zolpidem Tartrate [Ambien] 10 mg PO BEDTIME 04/21/24 Azithromycin Tab [Zithromax*] 250 mg PO DAILY 15 Days #15 tab 04/23/24 Fluticasone/Umeclidin/Vilanter [Trelegy Ellipta 100-62.5-25] 1 each IH DAILY 30 Days #30 aero 04/23/24 Roflumilast [Daliresp*] 500 mcg PO DAILY 30 Days #30 tab 04/23/24 - Past Medical/Surgical History Diabetic: No -: Sciatica -: Scoliosis -: COPD -: osteoarthritis -: Hysterectomy -: heart cath - Family History Family History: Reviewed- Non-Contributory - Family History Father -: Lung disease, Blood disorders, Other (see notes) Notes: PAD Mother -: Lung disease Brother -: Lung disease Notes: COPD Sister -: Cancer Notes: Stomach - Social History Smoking Status: Former smoker Alcohol use: No CD- Drugs: No Caffeine use: No Review of Systems Respiratory: Cough, Shortness of Breath, SOB with Excertion Physical Examination - Physical Exam General: Alert, Oriented x3, Acute distress HEENT: Atraumatic, Normocephalic, PERRLA Neck: Supple, 2+ carotid pulse no bruit Respiratory: Normal air movement, Diminished (LLL), Other (Tachypneic) Cardiovascular: No edema, Irregular heart rate/rhythm (tachycardic) Gastrointestinal: Normal bowel sounds, Soft and benign, No tenderness Musculoskeletal: No clubbing Integumentary: No rashes Neurological: Normal speech, Normal tone - Studies Laboratory Data (last 24 hrs) 05/17/24 05/17/24 05/17/24 12:55 12:47 12:47 WBC Hgb Hct Plt Count PT 13.1 H INR 1.20 APTT 30.8 Sodium Cancelled 135 L Potassium Cancelled 3.0 L BUN Cancelled 18 Creatinine Cancelled 0.64 Glucose Cancelled 157 H Total Bilirubin Cancelled 0.7 AST Cancelled 36 ALT Cancelled 47 Alkaline Phosphatase Cancelled 103 05/17/24 12:47 WBC 8.50 Hgb 12.6 Hct 37.5 Plt Count 276 PT INR APTT Sodium Potassium BUN Creatinine Glucose Total Bilirubin AST ALT Alkaline Phosphatase Assessment and Plan - Plan Assessment and plan Acute hypoxic respiratory failure secondary to terminal COPD Sepsis secondary to suspected left lower lobe pneumonia Tachycardic Tachypneic -HR 140, RR 22, LLL PNA likely -CXR reports "Lungs are mildly to moderately hyperaerated. The lungs appear clear of acute infiltrate. The heart is normal size. IMPRESSION: No acute abnormalities displayed" -Vancomycin, cefepime, and azithromycin given in the ED -On high flow in the ED -Oxygen supplementation -VBG ordered -Continuous pulse ox- oxygenation goal 88%-92% -Continuous telemetry -Consult Dr. Thomas -follow blood cultures -Solumedrol, zithromax, daliresp, diamox History of osteoarthritis History of sciatica and scoliosis -Continue home medication -Supportive care DVT PPx Lovenox Full code LOS 2 days Discharge Plan: Home Plan to discharge in: 48 Hours - Advance Directives Does patient have a Living Will: No Does patient have a Durable POA for Healthcare: No
[2024-05-17] MEDS ORDERED: HYDRALAZINE HCL 20 MG/ML VIAL IV PRN (15:29)
[2024-05-17] MEDS ORDERED: MORPHINE 2 MG/ML SYR IV PRN (15:30)
[2024-05-17] MEDS ORDERED: HYDROCODONE/APAP 7.5/325 MG TAB ONE (16:04)
[2024-05-17 16:15] LABS: Blood Gas Oxyhemoglobin 31.5 % (94-97); Blood Gas THB 10.8 g/dl (12-18); Blood O2 Saturation 32.4 % (92-98.5)
--- NOTE | 2024-05-17 16:34 | P.CNS ---
Date of Consult: 05/17/24 Chief Complaint: COPD exacerbation History of Present Illness: Patient is 73 years of age well-known to me recurrent hospitalizations for COPD she was recently transferred to SNF was discharged at home started complaining of worsening dyspnea back pain patient has some compression fractures very debilitated came here to the emergency room Allergies No Known Allergies Allergy (Verified 05/17/24 19:34) Home Medications: ALPRAZolam [Xanax*] 0.25 mg PO BID 10/03/15 Aspirin Chewable [Aspirin Chewable*] 81 mg PO DAILY tab.chew 01/06/23 Atorvastatin Calcium [Lipitor] 40 mg PO BEDTIME 02/27/24 Duloxetine HCl 60 mg PO DAILY 02/27/24 Metoprolol Succinate [Toprol Xl] 25 mg PO BID 02/27/24 Montelukast [Singulair*] 10 mg PO DAILY 02/27/24 Pantoprazole [Protonix Tab*] 40 mg PO DAILY 02/27/24 Sucralfate [Carafate*] 1 gm PO SEECOM 04/11/24 Hydrocodone 5/APAP 325 [[place] 5/325*] 1 tab PO Q4H PRN #45 tab 04/20/24 Mirtazapine 15 mg PO BEDTIME 05/18/24 dexAMETHasone [Dexamethasone] 2 mg PO BID 05/18/24 predniSONE [Deltasone*] 10 mg PO BID 05/18/24 - Past Medical/Surgical History Diabetic: No -: Sciatica -: Scoliosis -: COPD -: osteoarthritis -: Hysterectomy -: heart cath - Family History Father Medical History: Lung disease, Blood disorders, Other (see notes) Notes: PAD Mother Medical History: Lung disease Brother Medical History: Lung disease Notes: COPD Sister Medical History: Cancer Notes: Stomach - Social History Smoking Status: Former smoker Alcohol use: No CD- Drugs: No Caffeine use: No Review of Systems Unremarkable General: Weakness Respiratory: Shortness of Breath Cardiovascular: Edema Physical Examination General: Alert, Oriented x3 HEENT: Atraumatic Neck: Supple Cardiovascular: Regular rate/rhythm, Normal S1 S2, Edema (2+ edema) Gastrointestinal: Normal bowel sounds, Soft and benign Laboratory Data (last 24 hrs) 05/17/24 05/17/24 05/17/24 12:55 12:47 12:47 WBC Hgb Hct Plt Count PT 13.1 H INR 1.20 APTT 30.8 Sodium Cancelled 135 L Potassium Cancelled 3.0 L BUN Cancelled 18 Creatinine Cancelled 0.64 Glucose Cancelled 157 H Magnesium Total Bilirubin Cancelled 0.7 AST Cancelled 36 ALT Cancelled 47 Alkaline Phosphatase Cancelled 103 05/17/24 05/17/24 12:47 12:46 WBC 8.50 Hgb 12.6 Hct 37.5 Plt Count 276 PT INR APTT Sodium Potassium BUN Creatinine Glucose Magnesium 1.9 Total Bilirubin AST ALT Alkaline Phosphatase - Problems (1) COPD with acute exacerbation Current Visit: No Status: Acute Plan: Patient is 73 years of age well-known to [place] history of recurrent hospitalizations for terminal COPD recently diagnosed with compression fractures complaining of significant amount of back pain Labs chemistries all reviewed hypokalemia mild hyponatremia prognosis poor
[2024-05-17] MEDS: AZITHROMYCIN 250 MG TAB PO SCH (16:35)
[2024-05-17] MEDS: ENOXAPARIN 40 MG/0.4 ML SQ SCH (17:00)
[2024-05-17] MEDS: ROFLUMILAST 500 MCG TABLET PO SCH (17:00)
--- NOTE | 2024-05-17 19:26 | RAD REPORT ---
EXAM DESCRIPTION: CT - Chest For Pe Angio - 05/17/2024 6:29 pm CLINICAL HISTORY: Hypoxia COMPARISON: March 2024 TECHNIQUE: Dynamically enhanced axial 3 mm thick images of the chest were obtained during administra tion of 100 mL Isovue 370 IV contrast. Coronal and oblique reconstruction images were generated and r eviewed. Exam utilizes a protocol for optimal evaluation of pulmonary arterial tree. Maximum intensity projections 3D imaging was utilized All CT scans are performed using dose optimization technique as appropriate and may include automated exposure control or mA/KV adjustment according to patient size. FINDINGS: A pulmonary embolus is not seen. A thoracic aortic aneurysm is not noted. A pleural effusion is not seen. A pericardial effusion is not seen. Stable left lower lobe atelectasis Stable compression fractures thoracic spine IMPRESSION: Negative for a pulmonary embolism. Stable left lower lobe atelectasis. Direct visualization may be helpful to exclude a post obstructive process
[2024-05-17 20:21] VITALS: BMI 26.5
[2024-05-17] MEDS: IPRATROPIUM BROM 0.5MG/2.5ML NEB SCH (20:48)
[2024-05-17] MEDS: LEVALBUTEROL 0.63 MG/3 ML NEB NEB SCH (20:48)
[2024-05-17] MEDS ORDERED: ACETAZOLAMIDE 500 MG IV IV SCH (21:00)
[2024-05-17] MEDS: DULERA 200/5 (MOMETASONE/FORMOTEROL) INHALER IH SCH (21:00)
[2024-05-17] MEDS: Oxycodone HCl/Acetaminophen 5/325 MG TAB PO PRN (22:03)
[2024-05-17] MEDS: POTASSIUM 25 MEQ EFFERV TAB PO SCH (22:04)
[2024-05-17] MEDS: GABAPENTIN 300 MG CAP PO SCH (22:04)
[2024-05-18 03:40] LABS: Absolute Lymphocytes (CBC) 0.5 K/uL (0.7-4.9); Absolute Monocytes 0.2 K/uL (0.1-1.3); Absolute Neutrophil 2.4 K/uL (1.8-8.0); Basophils % 0.3 % (0-1.3); Hematocrit 30.5 % (36.0-45.0); Hemoglobin 10.5 g/dL (12.0-15.0); Lymphocytes % 15.8 % (15.3-44.8); MCHC 34.6 g/dL (32.0-36.0); MCV 95.5 fL (80-100); MPV 7.9 fL (7.6-11.3); Monocytes % 5.1 % (3.3-12.3); Neutrophils % 78.8 % (41.7-73.7); Nucleated Red Blood Cells % 0.3 % (0-0); Platelets 247 thou/uL (152-406); RBC Red Blood Cell Count 3.19 M/uL (3.86-4.86); Red Cell Distribution Width 14.6 % (12.1-15.2)
[2024-05-18 03:54] LABS: Anion Gap 8.4 mEq/L (5.0-15.0); Magnesium 1.8 mg/dL (1.6-2.4); Phosphorus 2.5 mg/dL (2.5-4.9); Potassium 3.4 mEq/L (3.5-5.1)
[2024-05-18] MEDS: MAGNESIUM SULFATE 1 gm IVPB 1 GM/100 ML BAG IV ONE (06:41)
[2024-05-18] MEDS: METHYLPREDNISOLONE 40 MG INJ IV SCH (06:41)
--- NOTE | 2024-05-18 07:11 | P.PN ---
Date of Service: 05/18/24 Subjective Appears more relaxed feels better [place] reports home O2 at 2 LNC, on 5 LNC and will need to wean down prior to discharge Dr. Thomas managing, will use PO medications ROS 10 point ROS as noted above, otherwise negative Physical Exam General: Awake, Alert and Oriented x3, NAD HEENT: Atraumatic, Normocephalic, PERRLA Neck: Supple, 2+ carotid pulse no bruit Respiratory: Normal air movement, Diminished (LLL), on 5 LNC Cardiovascular: No edema, Irregular heart rate/rhythm (tachycardic) Gastrointestinal: active bowel sounds, Soft and benign on palpation, No tenderness Musculoskeletal: No clubbing Integumentary: No rashes Neurological: Normal speech, Normal tone Vitals Reviewed Problem list Acute hypoxic respiratory failure secondary to terminal COPD and respiratory acidosis Sepsis secondary to suspected left lower lobe pneumonia Tachycardic Tachypneic History of osteoarthritis History of sciatica and scoliosis History of anxiety Assessment and Plan Acute hypoxic respiratory failure secondary to terminal COPD and respiratory acidosis Sepsis secondary to suspected left lower lobe pneumonia Tachycardic Tachypneic -HR 140, RR 22, LLL PNA likely -CXR reports "Lungs are mildly to moderately hyperaerated. The lungs appear clear of acute infiltrate. The heart is normal size. IMPRESSION: No acute abnormalities displayed" -CT PE protocol reports "Negative for a pulmonary embolism. Stable left lower lobe atelectasis. Direct visualization may be helpful to exclude a post obstructive process." -Vancomycin, cefepime, and azithromycin given in the ED -alternating high flow and bipap -VBG PH 7.25, rDL497.1, pO2 24.1, HCO3 28.5 -On 5 LNC today, will attpempt to wean, Continuous pulse ox- oxygenation goal 88%-92% -Continuous telemetry -Consult Dr. Thomas -follow blood cultures- pending -Solumedrol, zithromax, daliresp, diamox History of osteoarthritis History of sciatica and scoliosis History of Anxiety -Continue home medication -Supportive care DVT PPx Lovenox Full code LOS 2 days Discharge Plan: Social work to assist in placement options
[2024-05-18] MEDS: acetaZOLAMIDE 250 MG TAB PO SCH (07:49)
[2024-05-18] MEDS ORDERED: ENOXAPARIN 40 MG/0.4 ML SQ SCH (09:00)
[2024-05-18] MEDS ORDERED: AZITHROMYCIN IV 500 MG in NA CHLORIDE 0.9% 250 ML IVPB SCH (09:00)
[2024-05-18] MEDS ORDERED: HYDROCODONE/APAP 5/325 MG TAB PO PRN (09:46)
[2024-05-18] MEDS: ALPRAZOLAM 0.25 MG TABLET PO SCH (11:49)
--- NOTE | 2024-05-18 13:52 | EKG ---
Test Date: 2024-05-17 Test Time: 12:43:20 [place]: [place] MEASUREMENT RESULTS: Intervals: Rate: 134 [place]: QRSD: 92 QT: 384 QTc: 573 [place]: P: [place]: QRS: 86 T: 74 INTERPRETIVE STATEMENTS: Supraventricular tachycardia Otherwise normal ECG Compared to ECG 04/21/2024 13:33:04 Sinus tachycardia no longer present Atrial abnormality no longer present ST (T wave) deviation no longer present Electronically Signed On 05-18-24 13:49:10 CDT by Spencer Figueroa
--- NOTE | 2024-05-18 14:46 | ECHO ---
HEIGHT: 5 ft 3 in WEIGHT: 150 lb 0 oz DATE OF STUDY: 05/18/[address]: Ivan Thomas MD 2-DIMENSIONAL: YES M.MODE: YES DOPPLER: YES COLOR FLOW: YES TDS: PORTABLE: YES DEFINITY: BUBBLE STUDY: DIAGNOSIS: NICOLE CARDIAC HISTORY: CATHERIZATION: NO SURGERY: NO PROSTHETIC VALVE: NO PACEMAKER: NO MEASUREMENTS (cm) DIASTOLIC (NORMALS) SYSTOLIC (NORMALS) IVSd 1.0 (0.6-1.2) LA Diam 2.0 (1.9-4.0) LVEF 60-65% LVIDd 4.3 (3.5-5.7) LVIDs 2.8 (2.0-3.5) %FS 35% LVPWd 1.0 (0.6-1.2) Ao Diam 2.8 (2.0-3.7) 2 DIMENSIONAL ASSESSMENT: RIGHT ATRIUM: NORMAL LEFT ATRIUM: NORMAL RIGHT VENTRICLE: NORMAL LEFT VENTRICLE: NORMAL TRICUSPID VALVE: MILD TRICUSPID REGURGITATION MITRAL VALVE: MILD MITRAL ANNULAR CALCIFICATION PULMONIC VALVE: NORMAL AORTIC VALVE: NORMAL PERICARDIAL EFFUSION: NONE AORTIC ROOT: NORMAL LEFT VENTRICULAR WALL MOTION: NORMAL DOPPLER/COLOR FLOW: SEE BELOW COMMENTS: 1. NORMAL LEFT VENTRICULAR EJECTION FRACTION 60-65% 2. NORMAL WALL MOTION 3. MILD TRICUSPID REGURGITATION TECHNOLOGIST: SHERRELL RAHMAN
[2024-05-18] MEDS: ATORVASTATIN 40 MG TAB PO SCH (20:18)
[2024-05-18] MEDS: METOPROLOL XL 25 MG TAB PO SCH (20:18)
[2024-05-18] MEDS ORDERED: ALPRAZOLAM 0.25 MG TABLET PO SCH (21:00)
[2024-05-18] MEDS ORDERED: LACTULOSE 20 GM/30 ML UCUP PO PRN (21:09)
[2024-05-18] MEDS: DOCUSATE NA 100 MG CAP PO SCH (21:40)
[2024-05-18] MEDS: ZOLPIDEM TARTRATE 5 MG TABLET PO SCH (22:17)
[2024-05-19 03:54] LABS: Anion Gap 4.5 mEq/L (5.0-15.0); Magnesium 2.3 mg/dL (1.6-2.4); Potassium 4.5 mEq/L (3.5-5.1)
[2024-05-19] MEDS: ASPIRIN 81 MG CHEWABLE TABLET PO SCH (08:48)
[2024-05-19] MEDS: SUCRALFATE 1GM/10ML UCUP FT SCH (09:00)
--- NOTE | 2024-05-19 14:49 | P.PN ---
Date of Service: 05/19/24 Subjective [place] panicked this morning 4 L nasal cannula and she desaturated to 78% Will continue to attempt weaning oxygen supplementation ROS 10 point ROS as noted above, otherwise negative Physical Exam General: AAO x3, mildly distressed HEENT: Atraumatic, Normocephalic, PERRLA Neck: Supple, 2+ carotid pulse no bruit Respiratory: Normal air movement, Diminished (LLL), on 5 LNC Cardiovascular: No edema, Irregular heart rate/rhythm (tachycardic) Gastrointestinal: active bowel sounds, Soft and benign on palpation, No tenderness Musculoskeletal: No clubbing Integumentary: No rashes Neurological: Normal speech, Normal tone Vitals Reviewed Problem list Acute hypoxic respiratory failure secondary to terminal COPD and respiratory acidosis Sepsis secondary to suspected left lower lobe pneumonia Tachycardic Tachypneic Constipation History of osteoarthritis History of sciatica and scoliosis History of anxiety Assessment and Plan Acute hypoxic respiratory failure secondary to terminal COPD and respiratory acidosis Sepsis secondary to suspected left lower lobe pneumonia Tachycardic Tachypneic -sepsis criteria HR 140, RR 22, LLL PNA likely -CXR reports "Lungs are mildly to moderately hyperaerated. The lungs appear clear of acute infiltrate. The heart is normal size. IMPRESSION: No acute abnormalities displayed" -CT PE protocol reports "Negative for a pulmonary embolism. Stable left lower lobe atelectasis. Direct visualization may be helpful to exclude a post obstructive process." -Vancomycin, cefepime, and azithromycin given in the ED -alternating high flow and bipap -VBG PH 7.25, zPL977.1, pO2 24.1, HCO3 28.5 -On 4-6 LNC today, will attpempt to wean, Continuous pulse ox- oxygenation goal 88%-92% -Continuous telemetry -Consult Dr. Thomas -follow blood cultures- pending -Solumedrol, zithromax, daliresp, diamox Constipation -lactulose -Dulcolax History of osteoarthritis History of sciatica and scoliosis History of Anxiety -Continue home medication -Supportive care DVT PPx Lovenox Full code LOS 2 days Discharge Plan: Social work to assist in placement options
[2024-05-19] MEDS ORDERED: ZOLPIDEM TARTRATE 5 MG TABLET PO SCH (21:00)
[2024-05-20 04:34] LABS: Anion Gap 5.6 mEq/L (5.0-15.0); Potassium 4.6 mEq/L (3.5-5.1)
[2024-05-20] MEDS: AZITHROMYCIN 250 MG TAB PO SCH (09:00)
[2024-05-20] MEDS: SPIRONOLACTONE 25 MG TABLET PO SCH (09:00)
--- NOTE | 2024-05-20 09:29 | P.PN ---
Date of Service: 05/20/24 Subjective Awake, on CPAP No acute events overnight ROS 10 point ROS as noted above, otherwise negative Physical Exam General: AAO x3, mildly distressed HEENT: Atraumatic, Normocephalic, PERRLA Neck: Supple, 2+ carotid pulse no bruit Respiratory: Normal air movement, Diminished (LLL), on CPAP Cardiovascular: No edema, Irregular heart rate/rhythm (tachycardic) Gastrointestinal: active bowel sounds, Soft and benign on palpation, No tenderness Musculoskeletal: No clubbing Integumentary: No rashes Neurological: Normal speech, Normal tone Vitals Reviewed Problem list Acute hypoxic respiratory failure secondary to terminal COPD and respiratory acidosis Sepsis secondary to suspected left lower lobe pneumonia Tachycardic Tachypneic Constipation History of osteoarthritis History of sciatica and scoliosis History of anxiety Plan Acute hypoxic respiratory failure secondary to terminal COPD and respiratory acidosis Sepsis secondary to suspected left lower lobe pneumonia Tachycardic Tachypneic sepsis criteria HR 140, RR 22, LLL PNA likely CXR reports "Lungs are mildly to moderately hyperaerated. The lungs appear clear of acute infiltrate. The heart is normal size. IMPRESSION: No acute abnormalities displayed" CT PE protocol reports "Negative for a pulmonary embolism. Stable left lower lobe atelectasis. Direct visualization may be helpful to exclude a post obstructive process." Vancomycin, cefepime, and azithromycin given in the ED Blood cultures with no growth in 24 hours Attpempt to wean 02, Continuous pulse ox- oxygenation goal 88%-92% Pulmonary following, working on NIV setup for outpatient Solumedrol, zithromax, daliresp, diamox Constipation lactulose Dulcolax History of osteoarthritis History of sciatica and scoliosis History of Anxiety Continue home medication Supportive care DVT PPx Lovenox Full code LOS 2 days Discharge Plan: Social work to assist in placement options
--- NOTE | 2024-05-20 09:59 | P.PN ---
Subjective Date of Service: 05/19/24 Chief Complaint: COPD exacerbation Change in patient's condition see still continues to complain of dyspnea on minimal exertion still has significant amount of back pain Review of Systems General: Weakness Respiratory: Shortness of Breath Physical Examination - Vital Signs Temperature: 97.0 F Blood Pressure: 141/67 Pulse: 68 Respirations: 20 Pulse Ox (%): 98 - Physical Exam General: Alert, Moderate distress Respiratory: Clear to auscultation bilaterally, Diminished Cardiovascular: No edema, Regular rate/rhythm, Normal S1 S2 Gastrointestinal: Normal bowel sounds, Soft and benign Assessment And Plan - Current Problems (Diagnosis) (1) COPD with acute exacerbation Current Visit: No Status: Acute Plan: Patient is 73 years of age admitted with COPD exacerbation patient has terminal COPD recurrent admissions maximal therapy and fortunately prognosis is poor is in a mobile home resolved reviewed consult thromboembolism have to consider care home rehab facility has been on rehab here in the hospital in addition to a SNF unit
--- NOTE | 2024-05-20 10:01 | P.PN ---
Subjective Date of Service: 05/20/24 Chief Complaint: COPD exacerbation No change in patient's condition she remains very dyspneic and able to even move out from her bed being BiPAP Review of Systems General: Weakness Respiratory: Shortness of Breath Physical Examination - Vital Signs Temperature: 97.0 F Blood Pressure: 141/67 Pulse: 68 Respirations: 20 Pulse Ox (%): 98 - Physical Exam General: Alert, Moderate distress Respiratory: Diminished, Expiratory wheezes Gastrointestinal: Normal bowel sounds, Soft and benign Musculoskeletal: No clubbing, No contractures Integumentary: No rashes, No breakdown Assessment And Plan - Current Problems (Diagnosis) (1) COPD with acute exacerbation Current Visit: No Status: Acute Plan: Patient has terminal COPD plan to optimize care even more of added a low-dose of azithromycin patient to p.o. prednisone add spironolactone and normal left ventricular function may have underlying diastolic heart failure patient is on gabapentin some of the back pain which may be causing his significant anxiety associated with dyspnea to evaluate for rehab care home placement Discharge Plan: LTAC
[2024-05-20] MEDS: predniSONE 10 MG TAB PO SCH (19:46)
[2024-05-21 06:56] LABS: Anion Gap 6.5 mEq/L (5.0-15.0); Potassium 3.5 mEq/L (3.5-5.1)
[2024-05-21 07:19] LABS: Hematocrit 36.8 % (36.0-45.0); Hemoglobin 12.3 g/dL (12.0-15.0); MCHC 33.3 g/dL (32.0-36.0); Platelets 452 thou/uL (152-406); RBC Red Blood Cell Count 3.84 M/uL (3.86-4.86); Red Cell Distribution Width 14.5 % (12.1-15.2)
[2024-05-21] MEDS ORDERED: POTASSIUM 25 MEQ EFFERV TAB PO ONE (09:00)
[2024-05-21] MEDS: MORPHINE 4 MG/ML SYR IV PRN (09:19)
--- NOTE | 2024-05-21 10:58 | P.PN ---
Date of Service: 05/21/24 Subjective Awake, on neb this morning required high flow 02 this morning up to 10L ROS 10 point ROS as noted above, otherwise negative Physical Exam General: AAO x3, mildly distressed HEENT: Atraumatic, Normocephalic, PERRLA Neck: Supple, 2+ carotid pulse no bruit Respiratory: Normal air movement, Diminished, on neb mask Cardiovascular: No edema, regular heart rate/rhythm Gastrointestinal: active bowel sounds, Soft and benign on palpation, No tenderness Musculoskeletal: No clubbing Integumentary: No rashes Neurological: Normal speech, Normal tone Vitals Reviewed Problem list Acute hypoxic respiratory failure secondary to terminal COPD and respiratory acidosis Sepsis secondary to suspected left lower lobe pneumonia Tachycardic Tachypneic Constipation History of osteoarthritis History of sciatica and scoliosis History of anxiety Plan Acute hypoxic respiratory failure secondary to terminal COPD and respiratory acidosis Sepsis secondary to suspected left lower lobe pneumonia Tachycardic Tachypneic sepsis criteria HR 140, RR 22, LLL PNA likely CXR reports "Lungs are mildly to moderately hyperaerated. The lungs appear clear of acute infiltrate. The heart is normal size. IMPRESSION: No acute abnormalities displayed" CT PE protocol reports "Negative for a pulmonary embolism. Stable left lower lobe atelectasis. Direct visualization may be helpful to exclude a post obstructive process." Vancomycin, cefepime, and azithromycin given in the ED Blood cultures with no growth in 24 hours Attpempt to wean 02, Continuous pulse ox- oxygenation goal 88%-92% Needed high flow 02 today 05/21, still with dyspnea, tachypnea Pulmonary following, working on NIV setup for outpatient Solumedrol, zithromax, daliresp, diamox Constipation lactulose Dulcolax History of osteoarthritis History of sciatica and scoliosis History of Anxiety Continue home medication Supportive care DVT PPx Lovenox Full code LOS 2 days Discharge Plan: Social work to assist in placement options <Richi Anaya - Last Filed: 05/21/24 10:57> Patient seen and examined. Plan of care discussed with Richi Anaya. Acute on chronic respiratory failure with hypoxia and hypercapnia. Left lower lobe pneumonia. Patient currently maintained on high flow oxygen. Pulmonary is following and arranging for NIV. Continue steroid, Zithromax, Daliresp, Diamox. Wean oxygen as tolerated. <lupe mcdaniel - Last Filed: 05/21/24 17:35>
[2024-05-21 19:15] LABS: Specific Gravity 1.015 (1.005-1.030); Sqamous Epithelial <5 /HPF (None Seen); Urine Bacteria None Seen /HPF (<20); Urine Bilirubin NEGATIVE (Negative); Urine Blood Negative (Negative); Urine Clarity Turbid (Clear); Urine Color Light-Yellow (Yellow); Urine Culture Reflex Order NOT NEEDED; Urine Glucose NEGATIVE (Negative); Urine Ketones NEGATIVE (Negative); Urine Microscopic Reflex YN ORDER UMIC; Urine Nitrite NEGATIVE (Negative); Urine Protein TRACE (Negative); Urine RBC <5 /HPF (None Seen); Urine Urobilinogen Normal (Normal); Urine WBC <5 /HPF (<5)
[2024-05-22 05:39] LABS: Hemoglobin 12.6 g/dL (12.0-15.0); MCH 31.5 pg (27.0-35.0); MCHC 33.2 g/dL (32.0-36.0); MCV 95.1 fL (80-100); MPV 8.1 fL (7.6-11.3); Platelets 498 thou/uL (152-406); RBC Red Blood Cell Count 3.99 M/uL (3.86-4.86); Red Cell Distribution Width 14.6 % (12.1-15.2)
[2024-05-22 06:11] LABS: Anion Gap 6.8 mEq/L (5.0-15.0); Potassium 3.8 mEq/L (3.5-5.1)
--- NOTE | 2024-05-22 10:13 | P.PN ---
Date of Service: 05/22/24 Subjective C/O shortness of breath, had taken oxygen off Requiring 6-7LPM 02 at this time Sister at bedside ROS 10 point ROS as noted above, otherwise negative Physical Exam General: AAO x3, mildly distressed HEENT: Atraumatic, Normocephalic, PERRLA Neck: Supple, 2+ carotid pulse no bruit Respiratory: Normal air movement, Diminished, on neb mask Cardiovascular: No edema, regular heart rate/rhythm Gastrointestinal: active bowel sounds, Soft and benign on palpation, No tenderness Musculoskeletal: No clubbing Integumentary: No rashes Neurological: Normal speech, Normal tone Vitals Reviewed Problem list Acute hypoxic respiratory failure secondary to terminal COPD and respiratory acidosis Sepsis secondary to suspected left lower lobe pneumonia Tachycardic Tachypneic Constipation History of osteoarthritis History of sciatica and scoliosis History of anxiety Plan Acute hypoxic respiratory failure secondary to terminal COPD and respiratory acidosis Sepsis secondary to suspected left lower lobe pneumonia Tachycardic Tachypneic sepsis criteria HR 140, RR 22, LLL PNA likely CXR reports "Lungs are mildly to moderately hyperaerated. The lungs appear clear of acute infiltrate. The heart is normal size. IMPRESSION: No acute abnormalities displayed" CT PE protocol reports "Negative for a pulmonary embolism. Stable left lower lobe atelectasis. Direct visualization may be helpful to exclude a post obstructive process." Vancomycin, cefepime, and azithromycin given in the ED Blood cultures with no growth in 24 hours Attpempt to wean 02, Continuous pulse ox- oxygenation goal 88%-92% Needing 6-7 lpm at this time, still with dyspnea, tachypnea Pulmonary following, working on NIV setup for outpatient Solumedrol, zithromax, daliresp, diamox Sister at bedside, patient with significant decline from baseline Lives at home with 87 year old boyfriend who can not help care for her States there is no way she can be safely discharged home Reports serious decline in function/breathing in the last few months May need SNF/LTAC at [place] Constipation lactulose Dulcolax History of osteoarthritis History of sciatica and scoliosis History of Anxiety Continue home medication Supportive care DVT PPx Lovenox Full code LOS 2 days Discharge Plan: Social work to assist in placement options
[2024-05-22] MEDS: MORPHINE 4 MG/ML SYR IV ONE (15:47)
[2024-05-22] MEDS: FENTANYL 25 MCG/PATCH TD ONE (20:27)
[2024-05-22] MEDS ORDERED: AYR NASAL SALINE DROPS NAS PRN (20:30)
[2024-05-23] MEDS ORDERED: FLUTICASONE 50MCG NASAL SPRAY NAS SCH (09:00)
[2024-05-23] MEDS: ACETYLCYST 20% 4 ML VIAL IH SCH (09:00)
[2024-05-23 09:17] LABS: Hematocrit 39.3 % (36.0-45.0); Hemoglobin 13.2 g/dL (12.0-15.0); MCH 31.7 pg (27.0-35.0); MCHC 33.5 g/dL (32.0-36.0); MCV 94.4 fL (80-100); MPV 8.1 fL (7.6-11.3); Platelets 532 thou/uL (152-406); RBC Red Blood Cell Count 4.16 M/uL (3.86-4.86); Red Cell Distribution Width 14.1 % (12.1-15.2)
--- NOTE | 2024-05-23 09:41 | RAD REPORT ---
EXAM DESCRIPTION: RAD - Chest Single View - 05/23/2024 9:33 am CLINICAL HISTORY: COPD COMPARISON: Chest Single View dated 05/17/2024; Chest Single View dated 04/21/2024; Chest Single View dated 04/11/2024; Chest Single View dated 02/27/2024; Chest For Pe Angio dated 05/17/2024 FINDINGS: Lines: None. Lungs: Improved aeration at the left lung base compared with prior. Pleural: No significant pleural effusions or pneumothorax. Cardiac: The heart size is within normal limits. Mediastinum: Within normal limits. Bones: No acute fractures. Other: None IMPRESSION: Improved aeration at the left lung base. No acute cardiopulmonary disease.
--- NOTE | 2024-05-23 10:21 | P.PN ---
Date of Service: 05/23/24 Subjective Patient with dyspnea, severe anxiety this morning Declines wearing BiPAP as it makes her feel claustrophobic Struggling to breathe ROS 10 point ROS as noted above, otherwise negative Physical Exam General: AAO x3, mildly distressed HEENT: Atraumatic, Normocephalic, PERRLA Neck: Supple, 2+ carotid pulse no bruit Respiratory: Normal air movement, Diminished, on neb mask Cardiovascular: No edema, regular heart rate/rhythm Gastrointestinal: active bowel sounds, Soft and benign on palpation, No tenderness Musculoskeletal: No clubbing Integumentary: No rashes Neurological: Normal speech, Normal tone Vitals Reviewed Problem list Acute hypoxic respiratory failure secondary to terminal COPD and respiratory acidosis Sepsis secondary to suspected left lower lobe pneumonia Tachycardic Tachypneic Constipation History of osteoarthritis History of sciatica and scoliosis History of anxiety Plan Acute hypoxic respiratory failure secondary to terminal COPD and respiratory acidosis Sepsis secondary to suspected left lower lobe pneumonia Tachycardic Tachypneic sepsis criteria HR 140, RR 22, LLL PNA likely CXR reports "Lungs are mildly to moderately hyperaerated. The lungs appear clear of acute infiltrate. The heart is normal size. IMPRESSION: No acute abnormalities displayed" CT PE protocol reports "Negative for a pulmonary embolism. Stable left lower lobe atelectasis. Direct visualization may be helpful to exclude a post obstructive process." Vancomycin, cefepime, and azithromycin given in the ED Blood cultures with no growth in 24 hours Attpempt to wean 02, Continuous pulse ox- oxygenation goal 88%-92% Needing 6-7 lpm at this time, still with dyspnea, tachypnea Pulmonary following, working on NIV setup for outpatient Solumedrol, zithromax, daliresp, diamox Sister at bedside, patient with significant decline from baseline Lives at home with 87 year old boyfriend who can not help care for her States there is no way she can be safely discharged home Reports serious decline in function/breathing in the last few months May need SNF/LTAC at [place] Still requiring high concentrations of nasal cannula oxygen and BiPAP intermittently Severe anxiety this morning, will titrate pain/anxiety medications Constipation lactulose Dulcolax History of osteoarthritis History of sciatica and scoliosis History of Anxiety Continue home medication Supportive care DVT PPx Lovenox Full code LOS 2 days Discharge Plan: Social work to assist in placement options <Richi Anaya - Last Filed: 05/23/24 10:20> Patient seen and examined with Richi Anaya. Patient reports shortness of breath. She was seated on his bed complaining of anxiety and stuffy nose. Lung examination reveals diminished breath sounds and scattered wheezes. Plan: Nasal saline spray/Flonase for rhinitis Continue scheduled nebs, oral prednisone, Daliresp for COPD exacerbation. Ativan as needed for anxiety. Morphine IV as needed for pain and shortness of breath. Pulmonary is following Patient is currently on 10 L of oxygen by nasal cannula. NIV is being set up for home use. <lupe mcdaniel - Last Filed: 05/23/24 15:08>
[2024-05-23] MEDS: LORazepam 2 MG/ML VIAL IV ONE (10:31)
[2024-05-23] MEDS: MORPHINE 4 MG/ML SYR IV ONE (10:32)
[2024-05-23] MEDS: FLUTICASONE 50MCG NASAL SPRAY NAS SCH (10:50)
[2024-05-23] MEDS: SOD CHLORIDE 0.65% NASAL SPRAY NAS SCH (10:50)
--- NOTE | 2024-05-23 11:53 | P.PN ---
Subjective Date of Service: 05/23/24 Chief Complaint: COPD exacerbation No change in patient's condition she still continues to complain of dyspnea and back pain nasal congestion chest congestion Review of Systems General: Weakness Respiratory: Cough, Shortness of Breath Musculoskeletal: Back Pain Physical Examination - Vital Signs Temperature: 97.1 F Blood Pressure: 153/79 Pulse: 112 Respirations: 18 Pulse Ox (%): 99 - Physical Exam General: Alert, Oriented x3, Moderate distress Respiratory: Diminished, Expiratory wheezes Cardiovascular: No edema, Regular rate/rhythm, Normal S1 S2 - Studies Microbiology Data (last 24 hrs): 05/17/24 12:55 Blood - Blood Aerobic Blood Culture - Final No growth in 5 days. 05/17/24 12:55 Blood - Blood Anaerobic Blood Culture - Final No growth in 5 days. 05/17/24 12:45 Blood - Blood Aerobic Blood Culture - Final No growth in 5 days. 05/17/24 12:45 Blood - Blood Anaerobic Blood Culture - Final No growth in 5 days. Assessment And Plan - Current Problems (Diagnosis) (1) COPD with acute exacerbation Current Visit: No Status: Acute Plan: Patient has terminal COPD no change in patient's condition still continues to complain of dyspnea now has nasal congestion from oxygen have added Flonase trial of Mucomyst planing of back pain have added low-dose MS Contin prognosis poor to discussed with patient regarding hospice care and [facility] x-ray shows COPD changes normal echocardiogram
[2024-05-23] MEDS: MORPHINE *EXTENDED RELEASE* 15 MG TAB PO SCH (13:05)
[2024-05-23] MEDS: IPRATROPIUM BROM 0.5MG/2.5ML NEB SCH (13:05)
--- NOTE | 2024-05-24 07:22 | RAD REPORT ---
EXAM DESCRIPTION: RAD - Chest Single View - 05/24/2024 5:30 am CLINICAL HISTORY: COPD COMPARISON: Chest Single View dated 05/23/2024; Chest Single View dated 05/17/2024; Chest Single View d ated 04/21/2024; Chest Single View dated 04/11/2024; Chest For Pe Angio dated 05/17/2024 FINDINGS: Lines: None. Lungs: Mild residual airspace disease left lung base . Pleural: Slight blunted left costophrenic angle. Cardiac: The heart size is within normal limits. Mediastinum: Within normal limits. Bones: No acute fractures. Other: None IMPRESSION: Mild residual opacities at the left lung base which could represent some residual atelec tasis.
[2024-05-24 07:42] LABS: Hematocrit 38.3 % (36.0-45.0); Hemoglobin 12.9 g/dL (12.0-15.0); MCH 31.7 pg (27.0-35.0); MCHC 33.5 g/dL (32.0-36.0); MCV 94.5 fL (80-100); MPV 8.3 fL (7.6-11.3); Platelets 566 thou/uL (152-406); RBC Red Blood Cell Count 4.06 M/uL (3.86-4.86); Red Cell Distribution Width 14.1 % (12.1-15.2)
[2024-05-24 11:10] LABS: Anion Gap 7.4 mEq/L (5.0-15.0); Potassium 3.4 mEq/L (3.5-5.1)
--- NOTE | 2024-05-24 13:11 | P.PN ---
Date of Service: 05/24/24 Subjective Patient with dyspnea, a little better than yesterday O2 requirements typically between 6 to 10 L Occasionally requiring high flow/BiPAP No significant improvement ROS 10 point ROS as noted above, otherwise negative Physical Exam General: AAO x3, mildly distressed HEENT: Atraumatic, Normocephalic, PERRLA Neck: Supple, 2+ carotid pulse no bruit Respiratory: Normal air movement, Diminished, on nasal cannula Cardiovascular: No edema, regular heart rate/rhythm Gastrointestinal: active bowel sounds, Soft and benign on palpation, No tenderness Musculoskeletal: No clubbing Integumentary: No rashes Neurological: Normal speech, Normal tone Vitals Reviewed Problem list Acute hypoxic respiratory failure secondary to terminal COPD and respiratory acidosis Sepsis secondary to suspected left lower lobe pneumonia Tachycardic Tachypneic Constipation History of osteoarthritis History of sciatica and scoliosis History of anxiety Plan Acute hypoxic respiratory failure secondary to terminal COPD and respiratory acidosis Sepsis secondary to suspected left lower lobe pneumonia Tachycardic Tachypneic sepsis criteria HR 140, RR 22, LLL PNA likely CXR reports "Lungs are mildly to moderately hyperaerated. The lungs appear clear of acute infiltrate. The heart is normal size. IMPRESSION: No acute abnormalities displayed" CT PE protocol reports "Negative for a pulmonary embolism. Stable left lower lobe atelectasis. Direct visualization may be helpful to exclude a post obstructive process." Vancomycin, cefepime, and azithromycin given in the ED Blood cultures with no growth in 24 hours Attpempt to wean 02, Continuous pulse ox- oxygenation goal 88%-92% Needing 6-7 lpm at this time, still with dyspnea, tachypnea Pulmonary following, working on NIV setup for outpatient Solumedrol, zithromax, daliresp, diamox Sister at bedside, patient with significant decline from baseline Lives at home with 87 year old boyfriend who can not help care for her States there is no way she can be safely discharged home Reports serious decline in function/breathing in the last few months May need SNF at [place] Still requiring high concentrations of nasal cannula oxygen and BiPAP intermittently Discussed possibility of hospice care today, patient amendable to hospice consultation and discussion of options Constipation lactulose Dulcolax History of osteoarthritis History of sciatica and scoliosis History of Anxiety Continue home medication Supportive care DVT PPx Lovenox Full code LOS 2 days Discharge Plan: Social work to assist in placement options/possible hospice care
[2024-05-24] MEDS: POTASSIUM CL SA 10 MEQ TAB PO ONE (21:00)
[2024-05-25 06:45] LABS: Hematocrit 36.4 % (36.0-45.0); Hemoglobin 12.3 g/dL (12.0-15.0); MCH 31.7 pg (27.0-35.0); MCHC 33.8 g/dL (32.0-36.0); MCV 93.6 fL (80-100); MPV 8.3 fL (7.6-11.3); Platelets 575 thou/uL (152-406); RBC Red Blood Cell Count 3.89 M/uL (3.86-4.86)
[2024-05-25 06:48] LABS: Anion Gap 4.9 mEq/L (5.0-15.0); Potassium 3.9 mEq/L (3.5-5.1)
[2024-05-25] MEDS: DULOXETINE 30 MG CAP PO SCH (08:21)
[2024-05-25] MEDS: PANTOPRAZOLE 40MG TABLET PO SCH (08:21)
--- NOTE | 2024-05-25 19:52 | P.PN ---
Date of Service: 05/25/24 Subjective Some panic this AM revisited at 11 PM and she was calm no new complaints ROS 10 point ROS as noted above, otherwise negative Physical Exam General: Alert and oriented x3, mildly distressed HEENT: Atraumatic, Normocephalic, PERRLA Neck: Supple, 2+ carotid pulse no bruit Respiratory: Normal air movement, Diminished, on nasal cannula Cardiovascular: No edema, S1 S2 present, Sinus tachycardia Gastrointestinal: active bowel sounds present, Soft and benign on palpation, NT Musculoskeletal: No clubbing Integumentary: No rashes Neurological: Normal speech, Normal tone Vitals Reviewed Problem list Acute hypoxic respiratory failure secondary to terminal COPD and respiratory acidosis Sepsis secondary to suspected left lower lobe pneumonia Tachycardic Tachypneic Constipation History of osteoarthritis History of sciatica and scoliosis History of anxiety Plan Acute hypoxic respiratory failure secondary to terminal COPD and respiratory acidosis Sepsis secondary to suspected left lower lobe pneumonia Tachycardic Tachypneic sepsis criteria HR 140, RR 22, LLL PNA likely CXR reports "Lungs are mildly to moderately hyperaerated. The lungs appear clear of acute infiltrate. The heart is normal size. IMPRESSION: No acute abnormalities displayed" CT PE protocol reports "Negative for a pulmonary embolism. Stable left lower lobe atelectasis. Direct visualization may be helpful to exclude a post obstructive process." Vancomycin, cefepime, and azithromycin given in the ED Blood cultures with no growth in 24 hours Attpempt to wean 02, Continuous pulse ox- oxygenation goal 88%-92% Needing 6-7 lpm at this time, still with dyspnea, tachypnea Pulmonary following, working on NIV setup for outpatient Solumedrol, zithromax, daliresp, diamox Sister at bedside, patient with significant decline from baseline Lives at home with 87 year old boyfriend who can not help care for her States there is no way she can be safely discharged home Reports serious decline in function/breathing in the last few months [facility], will discharge in the AM 05/26 Still requiring high concentrations of nasal cannula oxygen and BiPAP intermittently Constipation lactulose Dulcolax History of osteoarthritis History of sciatica and scoliosis History of Anxiety Continue home medication Supportive care DVT PPx Lovenox Full code LOS 2 days Discharge Plan: [facility] to deliver DME tomorrow 05/25
[2024-05-26 07:14] LABS: Hematocrit 33.8 % (36.0-45.0); Hemoglobin 11.6 g/dL (12.0-15.0); MCH 32.1 pg (27.0-35.0); MCHC 34.3 g/dL (32.0-36.0); MCV 93.6 fL (80-100); MPV 8.4 fL (7.6-11.3); Platelets 448 thou/uL (152-406); RBC Red Blood Cell Count 3.61 M/uL (3.86-4.86)
[2024-05-26 07:42] LABS: Anion Gap 6.5 mEq/L (5.0-15.0); Potassium 3.5 mEq/L (3.5-5.1)
--- NOTE | 2024-05-26 18:58 | P.PN ---
Date of Service: 05/26/24 Subjective Feeling well, conversing with family at bedside Sitting up in bed, supporting herself Reports waiting for the home to be prepared for equipment arrival no new complaints ROS 10 point ROS as noted above, otherwise negative Physical Exam General: Alert and oriented x3, NAD, comfortable HEENT: Atraumatic, Normocephalic, PERRLA Neck: Supple, 2+ carotid pulse no bruit Respiratory: Symmetrical chest wall movement, Diminished, on nasal cannula Cardiovascular: No edema, S1 S2 present, Sinus tachycardia Gastrointestinal: active bowel sounds present, Soft and benign on palpation, NT Musculoskeletal: No clubbing Integumentary: No rashes Neurological: Normal speech, Normal tone Vitals Reviewed Problem list Acute hypoxic respiratory failure secondary to terminal COPD and respiratory acidosis Sepsis secondary to suspected left lower lobe pneumonia Tachycardic Tachypneic Constipation History of osteoarthritis History of sciatica and scoliosis History of anxiety Plan Acute hypoxic respiratory failure secondary to terminal COPD and respiratory acidosis Sepsis secondary to suspected left lower lobe pneumonia Tachycardic Tachypneic sepsis criteria HR 140, RR 22, LLL PNA likely CXR reports "Lungs are mildly to moderately hyperaerated. The lungs appear clear of acute infiltrate. The heart is normal size. IMPRESSION: No acute abnormalities displayed" CT PE protocol reports "Negative for a pulmonary embolism. Stable left lower lobe atelectasis. Direct visualization may be helpful to exclude a post obstructive process." Vancomycin, cefepime, and azithromycin given in the ED Blood cultures with no growth in 24 hours Attpempt to wean 02, Continuous pulse ox- oxygenation goal 88%-92% Needing 6-7 lpm at this time, still with dyspnea, tachypnea Pulmonary following, working on NIV setup for outpatient Solumedrol, zithromax, daliresp, diamox Sister at bedside, patient with significant decline from baseline Lives at home with 87 year old boyfriend who can not help care for her States there is no way she can be safely discharged home Reports serious decline in function/breathing in the last few months [facility], will discharge in the AM 7/4 Still requiring high concentrations of nasal cannula oxygen and BiPAP intermittently Constipation lactulose Dulcolax History of osteoarthritis History of sciatica and scoliosis History of Anxiety Continue home medication Supportive care DVT PPx Lovenox Full code LOS 2 days Discharge Plan: [facility] to deliver DME, awaiting for the home to be prepared for equipment delivery
[2024-05-27 06:26] LABS: Hematocrit 33.2 % (36.0-45.0); Hemoglobin 11.2 g/dL (12.0-15.0); MCH 31.8 pg (27.0-35.0); MCHC 33.8 g/dL (32.0-36.0); MPV 8.1 fL (7.6-11.3); Platelets 377 thou/uL (152-406); RBC Red Blood Cell Count 3.53 M/uL (3.86-4.86); Red Cell Distribution Width 13.9 % (12.1-15.2)
[2024-05-27 06:37] LABS: Anion Gap 5.3 mEq/L (5.0-15.0); Phosphorus 3.6 mg/dL (2.5-4.9); Potassium 3.3 mEq/L (3.5-5.1)
[2024-05-27] MEDS: POTASSIUM 25 MEQ EFFERV TAB PO ONE (09:24)
--- NOTE | 2024-05-27 18:41 | P.PN ---
Date of Service: 05/27/24 Subjective Awake and feeling well this AM no new complaints Spoke with Gisselle this AM, she confirmed a three way call was made and they have arranged for the DME equipment to be delivered today. Through the course of this day it has been revealed that the DME equipment has been refused to enter the home upon arrival Thursday, , and Thursday. Multiple family members contacted with no resolution. [facility] is cleared to be discharge, awaiting the DME equipment set up. ROS 10 point ROS as noted above, otherwise negative Physical Exam General: AAOx3, NAD, comfortable HEENT: Atraumatic, Normocephalic, PERRLA Neck: Supple, 2+ carotid pulse no bruit Respiratory: Nonlabored breathing, Diminished, on nasal cannula Cardiovascular: No edema, S1 S2 present, NSR Gastrointestinal: active bowel sounds present, Soft and benign on palpation, NT Musculoskeletal: No clubbing Integumentary: No rashes Neurological: Normal speech, Normal tone Vitals Reviewed Problem list Acute hypoxic respiratory failure secondary to terminal COPD and respiratory acidosis Sepsis secondary to suspected left lower lobe pneumonia Tachycardic Tachypneic Constipation History of osteoarthritis History of sciatica and scoliosis History of anxiety Plan Acute hypoxic respiratory failure secondary to terminal COPD and respiratory acidosis Sepsis secondary to suspected left lower lobe pneumonia Tachycardic Tachypneic sepsis criteria HR 140, RR 22, LLL PNA likely CXR reports "Lungs are mildly to moderately hyperaerated. The lungs appear clear of acute infiltrate. The heart is normal size. IMPRESSION: No acute abnormalities displayed" CT PE protocol reports "Negative for a pulmonary embolism. Stable left lower lobe atelectasis. Direct visualization may be helpful to exclude a post obstructive process." Vancomycin, cefepime, and azithromycin given in the ED Blood cultures with no growth to date Continuous pulse ox- oxygenation goal 88%-92% Needing 6-7 lpm at this time, still with dyspnea, tachypnea Pulmonary following, working on NIV setup for outpatient Solumedrol, zithromax, daliresp, diamox Sister at bedside, patient with significant decline from baseline Lives at home with 87 year old boyfriend who can not help care for her States there is no way she can be safely discharged home Reports serious decline in function/breathing in the last few months [facility] [address], will discharge when DME equipment is delivered Still requiring high concentrations of nasal cannula oxygen and BiPAP intermittently Constipation lactulose Dulcolax History of osteoarthritis History of sciatica and scoliosis History of Anxiety Continue home medication Supportive care DVT PPx Lovenox Full code LOS 2 days Discharge Plan: [facility] [address] to deliver DME, awaiting for the home to be prepared for equipment delivery
--- NOTE | 2024-05-28 11:00 | RAD REPORT ---
EXAM DESCRIPTION: RAD - Chest Single View - 05/28/2024 10:26 am CLINICAL HISTORY: SOB Chest pain. COMPARISON: <Comparisons> FINDINGS: Portable technique limits examination quality. Emphysematous changes are present throughout the lung velez. Mild reticular opacities are present in both lung bases. The heart is mildly enlarged in size. No displaced fractures. IMPRESSION: COPD. Mild reticular opacities in both lung bases probably represent mild infection.
[2024-05-28] MEDS: ACETAMINOPHEN 325 MG TABLET PO PRN (15:13)
--- NOTE | 2024-05-28 18:27 | P.PN ---
Date of Service: 05/28/24 Subjective Awake and in a panic state from the [employer] alarming Bumped up oxygen to 10 LNC Able to wean down to 7 LNC, added extra steroids Continue to wait for hospice equipment delivery and home preparation ROS 10 point ROS as noted above, otherwise negative Physical Exam General: Alert and oriented x3, NAD HEENT: Atraumatic, Normocephalic, PERRLA Neck: Supple, 2+ carotid pulse no bruit Respiratory: Nonlabored breathing, Diminished, coughing, on 7 nasal cannula Cardiovascular: No edema, S1 S2 present, NSR Gastrointestinal: bowel sounds present, Soft and benign on palpation, NT Musculoskeletal: No clubbing Integumentary: No rashes Neurological: Normal speech, Normal tone, panic Vitals Reviewed Problem list Acute hypoxic respiratory failure secondary to terminal COPD and respiratory acidosis Sepsis secondary to suspected left lower lobe pneumonia Tachycardic Tachypneic Constipation History of osteoarthritis History of sciatica and scoliosis History of anxiety Plan Acute hypoxic respiratory failure secondary to terminal COPD and respiratory acidosis Sepsis secondary to suspected left lower lobe pneumonia Tachycardic Tachypneic sepsis criteria HR 140, RR 22, LLL PNA likely CXR reports "Lungs are mildly to moderately hyperaerated. The lungs appear clear of acute infiltrate. The heart is normal size. IMPRESSION: No acute abnormalities displayed" CT PE protocol reports "Negative for a pulmonary embolism. Stable left lower lobe atelectasis. Direct visualization may be helpful to exclude a post obstructive process." Vancomycin, cefepime, and azithromycin given in the ED Blood cultures with no growth to date Continuous pulse ox- oxygenation goal 88%-92% Needing 6-7 lpm at this time, still with dyspnea, tachypnea Pulmonary following, working on NIV setup for outpatient Solumedrol, zithromax, daliresp, diamox Sister at bedside, patient with significant decline from baseline Lives at home with 87 year old boyfriend who can not help care for her States there is no way she can be safely discharged home Reports serious decline in function/breathing in the last few months [facility], will discharge when DME equipment is delivered Still requiring high concentrations of nasal cannula oxygen and BiPAP intermittently Constipation lactulose Dulcolax History of osteoarthritis History of sciatica and scoliosis History of Anxiety Continue home medication Supportive care DVT PPx Lovenox Full code LOS 2 days Discharge Plan: [facility] to deliver DME, awaiting for the home to be prepared for equipment delivery
[2024-05-28] MEDS: METHYLPREDNISOLONE 40 MG INJ IV ONE (18:36)
[2024-05-29 06:01] LABS: Absolute Lymphocytes (CBC) 0.4 K/uL (0.7-4.9); Absolute Monocytes 0.5 K/uL (0.1-1.3); Absolute Neutrophil 7.4 K/uL (1.8-8.0); Basophils % 0.5 % (0-1.3); Eosinophils % 0.1 % (0-4.4); Hematocrit 34.7 % (36.0-45.0); Hemoglobin 12.1 g/dL (12.0-15.0); Lymphocytes % 5.1 % (15.3-44.8); MCH 32.2 pg (27.0-35.0); MCHC 34.8 g/dL (32.0-36.0); MCV 92.6 fL (80-100); MPV 8.5 fL (7.6-11.3); Neutrophils % 88.3 % (41.7-73.7); Platelets 371 thou/uL (152-406); RBC Red Blood Cell Count 3.74 M/uL (3.86-4.86); Red Cell Distribution Width 13.9 % (12.1-15.2)
[2024-05-29 06:11] LABS: Anion Gap 4.7 mEq/L (5.0-15.0); Magnesium 1.8 mg/dL (1.6-2.4); Phosphorus 4.1 mg/dL (2.5-4.9); Potassium 3.7 mEq/L (3.5-5.1)
--- NOTE | 2024-05-29 06:42 | P.PN ---
Date of Service: 05/29/24 Subjective Awake and calm this morning On 10 LNC no new complaints Continue to wait for hospice equipment delivery and home preparation ROS 10 point ROS as noted above, otherwise negative Physical Exam General: AAO x3, NAD HEENT: Atraumatic, Normocephalic, PERRLA Neck: Supple, 2+ carotid pulse no bruit Respiratory: Nonlabored breathing, Diminished, coughing, on 10 nasal cannula Cardiovascular: No edema, S1 S2 present, RRR Gastrointestinal: bowel sounds present, Soft and benign on palpation, NT Musculoskeletal: No clubbing Integumentary: No rashes Neurological: Normal speech, Normal tone, panic Vitals Reviewed Problem list Acute hypoxic respiratory failure secondary to terminal COPD and respiratory acidosis Sepsis secondary to suspected left lower lobe pneumonia Tachycardic Tachypneic Constipation History of osteoarthritis History of sciatica and scoliosis History of anxiety Plan Acute hypoxic respiratory failure secondary to terminal COPD and respiratory acidosis Sepsis secondary to suspected left lower lobe pneumonia Tachycardic Tachypneic sepsis criteria HR 140, RR 22, LLL PNA likely CXR reports "Lungs are mildly to moderately hyperaerated. The lungs appear clear of acute infiltrate. The heart is normal size. IMPRESSION: No acute abnormalities displayed" 05/28 CXR reports "Emphysematous changes are present throughout the lung velez. Mild reticular opacities are present in both lung bases. The heart is mildly enlarged in size. No displaced fractures.IMPRESSION: COPD. Mild reticular opacities in both lung bases probably represent mild infection." CT PE protocol reports "Negative for a pulmonary embolism. Stable left lower lobe atelectasis. Direct visualization may be helpful to exclude a post obstructive process." Vancomycin, cefepime, and azithromycin given in the ED Blood cultures with no growth to date Continuous pulse ox- oxygenation goal 88%-92% Needing 6-7 lpm at this time, still with dyspnea, tachypnea Pulmonary following, working on NIV setup for outpatient Solumedrol, zithromax, daliresp, diamox Sister at bedside, patient with significant decline from baseline Lives at home with 87 year old boyfriend who can not help care for her States there is no way she can be safely discharged home Reports serious decline in function/breathing in the last few months [facility], will discharge when DME equipment is delivered Still requiring high concentrations of nasal cannula oxygen Constipation lactulose Dulcolax History of osteoarthritis History of sciatica and scoliosis History of Anxiety Continue home medication Supportive care DVT PPx Lovenox Full code LOS 2 days Discharge Plan: [facility] to deliver DME, awaiting for the home to be prepared for equipment delivery
[2024-05-29] MEDS: MAGNESIUM SULFATE 1 gm IVPB 1 GM/100 ML BAG IV ONE (07:58)
[2024-05-29 08:06] LABS: Band Neutrophils 1 % (0-1); Differential Total Cells Count 100; Lymphocytes 3 % (15-42); Segmented Neutrophils 87 % (40-80)
[2024-05-29 08:07] LABS: Basophilic Stippling 1+; Blood Morphology Comment NOTED (NOT SEEN); Metamyelocytes 2 % (0-0); Monocytes 7 % (0-10); Platelet Estimate ADEQ
[2024-05-30 06:44] LABS: Anion Gap 7.1 mEq/L (5.0-15.0); Magnesium 2.1 mg/dL (1.6-2.4); Potassium 3.1 mEq/L (3.5-5.1)
--- NOTE | 2024-05-30 09:04 | P.PN ---
Date of Service: 05/30/24 Subjective Doing well no new complaints Continue to wait for hospice equipment delivery and home preparation ROS 10 point ROS as noted above, otherwise negative Physical Exam General: AAO x3, NAD, calm and comfortable HEENT: Atraumatic, Normocephalic, PERRLA Neck: Supple, 2+ carotid pulse no bruit Respiratory: Nonlabored breathing, Diminished, coughing, on 10 nasal cannula Cardiovascular: No edema, S1 S2 present, RRR Gastrointestinal: bowel sounds present, Soft and benign on palpation, NT Musculoskeletal: No clubbing Integumentary: No rashes Neurological: Normal speech, Normal tone, panic Vitals Reviewed Problem list Acute hypoxic respiratory failure secondary to terminal COPD and respiratory acidosis Sepsis secondary to suspected left lower lobe pneumonia Tachycardic Tachypneic Constipation History of osteoarthritis History of sciatica and scoliosis History of anxiety Plan Acute hypoxic respiratory failure secondary to terminal COPD and respiratory acidosis Sepsis secondary to suspected left lower lobe pneumonia Tachycardic Tachypneic sepsis criteria HR 140, RR 22, LLL PNA likely CXR reports "Lungs are mildly to moderately hyperaerated. The lungs appear clear of acute infiltrate. The heart is normal size. IMPRESSION: No acute abnormalities displayed" 05/28 CXR reports "Emphysematous changes are present throughout the lung velez. Mild reticular opacities are present in both lung bases. The heart is mildly enlarged in size. No displaced fractures.IMPRESSION: COPD. Mild reticular opacities in both lung bases probably represent mild infection." CT PE protocol reports "Negative for a pulmonary embolism. Stable left lower lobe atelectasis. Direct visualization may be helpful to exclude a post obstructive process." Vancomycin, cefepime, and azithromycin given in the ED Blood cultures with no growth to date Continuous pulse ox- oxygenation goal 88%-92% Needing 6-7 lpm at this time, still with dyspnea, tachypnea Pulmonary following, working on NIV setup for outpatient Solumedrol, zithromax, daliresp, diamox Sister at bedside, patient with significant decline from baseline Lives at home with 87 year old boyfriend who can not help care for her States there is no way she can be safely discharged home Reports serious decline in function/breathing in the last few months [facility], will discharge when DME equipment is delivered Still requiring high concentrations of nasal cannula oxygen Constipation lactulose Dulcolax History of osteoarthritis History of sciatica and scoliosis History of Anxiety Continue home medication Supportive care DVT PPx Lovenox Full code LOS 2 days Discharge Plan: [facility] to deliver DME, awaiting for the home to be prepared for equipment delivery
[2024-05-30] MEDS: POTASSIUM 25 MEQ EFFERV TAB PO ONE ×2 (11:00→18:26)
[2024-05-30] MEDS: NALOXONE 0.4 MG/ML VIAL IV ONE (13:08)
[2024-05-30] MEDS: Oxycodone HCl/Acetaminophen 5/325 MG TAB PO PRN (16:41)
[2024-05-30] MEDS: GUAIFENESIN/CODEINE 5ML UCUP PO PRN (21:27)
[2024-05-31 05:43] LABS: Anion Gap 7.5 mEq/L (5.0-15.0); Potassium 3.5 mEq/L (3.5-5.1)
--- NOTE | 2024-05-31 14:31 | P.PN ---
Date of Service: 05/31/24 Subjective Stable no changes to plan Continue to wait for hospice equipment delivery and home preparation ROS 10 point ROS as noted above, otherwise negative Physical Exam General: Alert and oriented x3, NAD, calm and comfortable, afebrile HEENT: Atraumatic, Normocephalic, PERRLA Neck: Supple, 2+ carotid pulse no bruit Respiratory: Nonlabored breathing, Diminished, on 10 nasal cannula Cardiovascular: No edema, S1 S2 present, sinus tachycardia Gastrointestinal: bowel sounds present, Soft on palpation, NT Musculoskeletal: No clubbing Integumentary: No rashes Neurological: Normal speech, Normal tone, panic Vitals Reviewed Problem list Acute hypoxic respiratory failure secondary to terminal COPD and respiratory acidosis Sepsis secondary to suspected left lower lobe pneumonia Tachycardic Tachypneic Constipation History of osteoarthritis History of sciatica and scoliosis History of anxiety Plan Acute hypoxic respiratory failure secondary to terminal COPD and respiratory acidosis Sepsis secondary to suspected left lower lobe pneumonia Tachycardic Tachypneic sepsis criteria HR 140, RR 22, LLL PNA likely CXR reports "Lungs are mildly to moderately hyperaerated. The lungs appear clear of acute infiltrate. The heart is normal size. IMPRESSION: No acute abnormalities displayed" 05/28 CXR reports "Emphysematous changes are present throughout the lung velez. Mild reticular opacities are present in both lung bases. The heart is mildly enlarged in size. No displaced fractures.IMPRESSION: COPD. Mild reticular opacities in both lung bases probably represent mild infection." CT PE protocol reports "Negative for a pulmonary embolism. Stable left lower lobe atelectasis. Direct visualization may be helpful to exclude a post obstructive process." Vancomycin, cefepime, and azithromycin given in the ED Blood cultures with no growth to date Continuous pulse ox- oxygenation goal 88%-92% Needing 6-7 lpm at this time, still with dyspnea, tachypnea Pulmonary following, working on NIV setup for outpatient Solumedrol, zithromax, daliresp, diamox Sister at bedside, patient with significant decline from baseline Lives at home with 87 year old boyfriend who can not help care for her States there is no way she can be safely discharged home Reports serious decline in function/breathing in the last few months [facility], will discharge when DME equipment is delivered Still requiring high concentrations of nasal cannula oxygen Constipation lactulose Dulcolax History of osteoarthritis History of sciatica and scoliosis History of Anxiety Continue home medication Supportive care DVT PPx Lovenox Full code LOS 2 days Discharge Plan: [facility] to deliver DME, awaiting for the home to be prepared for equipment delivery <Samantha Pandey - Last Filed: 05/31/24 14:26> Patient seen and examined No major changes from yesterday. Patient stable on 7 L of oxygen by nasal cannula. She is complaining of anxiety and back pain. Continue current bronchodilators. Continue current antianxiety medications. Patient is on Percocet as needed for pain. Patient is slated for home with hospice. Waiting for hospice equipment to be delivered. <lupe mcdaniel - Last Filed: 05/31/24 17:40>
[2024-06-01 05:03] LABS: Absolute Lymphocytes (CBC) 0.8 K/uL (0.7-4.9); Absolute Monocytes 0.8 K/uL (0.1-1.3); Basophils % 0.3 % (0-1.3); Eosinophils % 0.2 % (0-4.4); Hematocrit 34.5 % (36.0-45.0); Hemoglobin 11.5 g/dL (12.0-15.0); MCHC 33.4 g/dL (32.0-36.0); MPV 9.5 fL (7.6-11.3); Monocytes % 9.6 % (3.3-12.3); Nucleated Red Blood Cells % 0.1 % (0-0); Platelets 311 thou/uL (152-406); RBC Red Blood Cell Count 3.71 M/uL (3.86-4.86); Red Cell Distribution Width 13.7 % (12.1-15.2)
[2024-06-01 05:05] LABS: Neutrophils % 80.9 % (41.7-73.7)
[2024-06-01 05:34] LABS: Anion Gap 5.5 mEq/L (5.0-15.0); Magnesium 1.6 mg/dL (1.6-2.4); Phosphorus 5.1 mg/dL (2.5-4.9); Potassium 4.5 mEq/L (3.5-5.1)
[2024-06-01] MEDS: MAGNESIUM SULFATE 1 gm IVPB 1 GM/100 ML BAG IV ONE (06:35)
--- NOTE | 2024-06-01 07:38 | P.PN ---
Date of Service: 06/01/24 Subjective Awake and smiling, very pleasant this a.m. no new complaints Continue to wait for hospice equipment delivery and home preparation ROS 10 point ROS as noted above, otherwise negative Physical Exam General: AAO x3, calm and comfortable, afebrile, NAD HEENT: Atraumatic, Normocephalic, PERRLA Neck: Supple, 2+ carotid pulse no bruit Respiratory: Nonlabored breathing, symmetrical chest wall movement, diminished, on 7 nasal cannula Cardiovascular: No edema, Normal S1 S2 present, mild sinus tachycardia Gastrointestinal: Normal active bowel sounds, Soft on palpation, NT/ND Musculoskeletal: No clubbing Integumentary: No rashes Neurological: Normal speech, Normal tone Vitals Reviewed Problem list Acute hypoxic respiratory failure secondary to terminal COPD and respiratory acidosis Sepsis secondary to suspected left lower lobe pneumonia Tachycardic Tachypneic Constipation History of osteoarthritis History of sciatica and scoliosis History of anxiety Plan Acute hypoxic respiratory failure secondary to terminal COPD and respiratory acidosis Sepsis secondary to suspected left lower lobe pneumonia Tachycardic Tachypneic sepsis criteria HR 140, RR 22, LLL PNA likely CXR reports "Lungs are mildly to moderately hyperaerated. The lungs appear clear of acute infiltrate. The heart is normal size. IMPRESSION: No acute abnormalities displayed" 05/28 CXR reports "Emphysematous changes are present throughout the lung velez. Mild reticular opacities are present in both lung bases. The heart is mildly enlarged in size. No displaced fractures.IMPRESSION: COPD. Mild reticular opaci ties in both lung bases probably represent mild infection." CT PE protocol reports "Negative for a pulmonary embolism. Stable left lower lobe atelectasis. Direct visualization may be helpful to exclude a post obstructive process." Vancomycin, cefepime, and azithromycin given in the ED Blood cultures with no growth to date Continuous pulse ox- oxygenation goal 88%-92% Needing 6-7 lpm at this time, still with dyspnea, tachypnea Pulmonary following, working on NIV setup for outpatient Solumedrol, zithromax, daliresp, diamox Sister at bedside, patient with significant decline from baseline Lives at home with 87 year old boyfriend who can not help care for her States there is no way she can be safely discharged home Reports serious decline in function/breathing in the last few months [facility], will discharge when DME equipment is delivered Still requiring high concentrations of nasal cannula oxygen Hyperphosphatemia Phos 5.1 Monitor in AM labs Constipation lactulose Dulcolax History of osteoarthritis History of sciatica and scoliosis History of Anxiety Continue home medication Supportive care DVT PPx Lovenox Full code LOS 2 days Discharge Plan: [facility] to deliver DME, awaiting for the home to be prepared for equipment delivery <Samantha Pandey - Last Filed: 06/01/24 14:23> Patient seen and examined. Patient is stable on 7 L oxygen by nasal cannula. She has no new complaint. Patient is being evaluated for inpatient hospice given that she is needing high oxygen flow. Continue to wean oxygen as tolerated. Increase activity as tolerated. Patient is currently on oral prednisone, Daliresp, Diamox, inhaled steroid + LABA. <lupe mcdaniel - Last Filed: 06/01/24 16:37>
--- NOTE | 2024-06-01 12:52 | P.PN ---
Subjective Date of Service: 05/31/24 Chief Complaint: COPD exacerbation Patient is doing better pain has improved able to ambulate now Review of Systems General: Weakness Respiratory: Shortness of Breath Physical Examination - Vital Signs Temperature: 96.7 F Blood Pressure: 143/75 Pulse: 95 Respirations: 17 Pulse Ox (%): 95 - Physical Exam General: Alert, In no apparent distress, Oriented x3 Neck: Supple Respiratory: Clear to auscultation bilaterally, Diminished Cardiovascular: No edema Assessment And Plan - Current Problems (Diagnosis) (1) COPD with acute exacerbation Current Visit: No Status: Acute Plan: Patient admitted with COPD exacerbation has improved will DC morphine medication list reviewed continue with all other medications discharge planning vital signs oxygenation satisfactory titrate sat to 90% with physical therapy and ambulation
[2024-06-02 07:06] LABS: Absolute Basophils 0.1 K/uL (0-0.5); Absolute Lymphocytes (CBC) 0.8 K/uL (0.7-4.9); Absolute Neutrophil 6.5 K/uL (1.8-8.0); Basophils % 0.7 % (0-1.3); Eosinophils % 0.6 % (0-4.4); Hematocrit 34.3 % (36.0-45.0); Hemoglobin 11.4 g/dL (12.0-15.0); Lymphocytes % 9.1 % (15.3-44.8); MCH 30.8 pg (27.0-35.0); MCHC 33.3 g/dL (32.0-36.0); MCV 92.5 fL (80-100); MPV 9.2 fL (7.6-11.3); Monocytes % 11.7 % (3.3-12.3); Neutrophils % 77.9 % (41.7-73.7); Nucleated Red Blood Cells % 0.1 % (0-0); Platelets 312 thou/uL (152-406); RBC Red Blood Cell Count 3.71 M/uL (3.86-4.86); Red Cell Distribution Width 13.9 % (12.1-15.2)
[2024-06-02 07:27] LABS: Magnesium 1.8 mg/dL (1.6-2.4); Phosphorus 4.5 mg/dL (2.5-4.9)
--- NOTE | 2024-06-02 08:06 | P.PN ---
Date of Service: 06/02/24 Subjective Continues on high levels of oxygen Smiling and conversing well No new complaints Awaiting hospice placement ROS 10 point ROS as noted above, otherwise negative Physical Exam General: Alert and oriented x3, calm and comfortable HEENT: Atraumatic, Normocephalic, PERRLA Neck: Supple, 2+ carotid pulse no bruit Respiratory: Nonlabored breathing, symmetrical chest wall movement, diminished, on 7 nasal cannula Cardiovascular: Normal S1 S2 present, regular rate and rhythm Gastrointestinal: bowel sounds present, Soft and benign on palpation, NT/ND Musculoskeletal: No clubbing Integumentary: No rashes Neurological: Normal speech, Normal tone Vitals Reviewed Problem list Acute hypoxic respiratory failure secondary to terminal COPD and respiratory acidosis Sepsis secondary to suspected left lower lobe pneumonia Tachycardic Tachypneic Constipation History of osteoarthritis History of sciatica and scoliosis History of anxiety Plan Acute hypoxic respiratory failure secondary to terminal COPD and respiratory acidosis Sepsis secondary to suspected left lower lobe pneumonia Tachycardic Tachypneic sepsis criteria HR 140, RR 22, LLL PNA likely CXR reports "Lungs are mildly to moderately hyperaerated. The lungs appear clear of acute infiltrate. The heart is normal size. IMPRESSION: No acute abnormalities displayed" 05/28 CXR reports "Emphysematous changes are present throughout the lung velez. Mild reticular opacities are present in both lung bases. The heart is mildly enlarged in size. No displaced fractures.IMPRESSION: COPD. Mild reticular opacities in both lung bases probably represent mild infection." CT PE protocol reports "Negative for a pulmonary embolism. Stable left lower lobe atelectasis. Direct visualization may be helpful to exclude a post obstructive process." Vancomycin, cefepime, and azithromycin given in the ED Blood cultures with no growth to date Continuous pulse ox- oxygenation goal 88%-92% Needing 6-7 lpm at this time, still with dyspnea, tachypnea Pulmonary following, working on NIV setup for outpatient Solumedrol, zithromax, daliresp, diamox Sister at bedside, patient with significant decline from baseline Lives at home with 87 year old boyfriend who can not help care for her States there is no way she can be safely discharged home Reports serious decline in function/breathing in the last few months Attempting for inpatient hospice Still requiring high concentrations of nasal cannula oxygen Hyperphosphatemia Monitor phosphorus Constipation lactulose Dulcolax History of osteoarthritis History of sciatica and scoliosis History of Anxiety Continue home medication Supportive care DVT PPx Lovenox Full code LOS 2 days Discharge Plan: Awaiting hospice placement
[2024-06-02 09:42] LABS: Band Neutrophils 1 % (0-1); Blood Morphology Comment NOT SEEN (NOT SEEN); Differential Total Cells Count 100; Lymphocytes 11 % (15-42); Metamyelocytes 2 % (0-0); Monocytes 3 % (0-10); Nucleated Red Blood Cells 1 /100WBC; Platelet Estimate ADEQ; Promyelocytes 3 % (0-0); Segmented Neutrophils 80 % (40-80)
[2024-06-02] MEDS: ALPRAZOLAM 0.25 MG TABLET PO PRN (21:29)
[2024-06-02] MEDS: ZOLPIDEM TARTRATE 5 MG TABLET PO SCH (21:29)
[2024-06-03 06:23] LABS: Absolute Basophils 0.1 K/uL (0-0.5); Absolute Monocytes 1.2 K/uL (0.1-1.3); Basophils % 0.8 % (0-1.3); Eosinophils % 0.3 % (0-4.4); Hematocrit 33.5 % (36.0-45.0); Hemoglobin 10.8 g/dL (12.0-15.0); Lymphocytes % 8.7 % (15.3-44.8); MCH 29.7 pg (27.0-35.0); MCHC 32.3 g/dL (32.0-36.0); MCV 91.9 fL (80-100); MPV 9.4 fL (7.6-11.3); Monocytes % 10.4 % (3.3-12.3); Neutrophils % 79.8 % (41.7-73.7); Nucleated Red Blood Cells % 0.1 % (0-0); Platelets 367 thou/uL (152-406); RBC Red Blood Cell Count 3.65 M/uL (3.86-4.86)
[2024-06-03 06:27] LABS: Anion Gap 6.8 mEq/L (5.0-15.0); Magnesium 1.8 mg/dL (1.6-2.4); Phosphorus 3.6 mg/dL (2.5-4.9); Potassium 3.8 mEq/L (3.5-5.1)
--- NOTE | 2024-06-03 09:09 | P.PN ---
Date of Service: 06/03/24 Subjective Continues on high levels of oxygen conversing well No acute events overnight Awaiting hospice placement vs snf ROS 10 point ROS as noted above, otherwise negative Physical Exam General: Alert and oriented x3, calm and comfortable HEENT: Atraumatic, Normocephalic, PERRLA Neck: Supple, 2+ carotid pulse no bruit Respiratory: Nonlabored breathing, symmetrical chest wall movement, diminished, on 7 nasal cannula Cardiovascular: Normal S1 S2 present, regular rate and rhythm Gastrointestinal: bowel sounds present, Soft and benign on palpation, NT/ND Musculoskeletal: No clubbing Integumentary: No rashes Neurological: Normal speech, Normal tone Vitals Reviewed Problem list Acute hypoxic respiratory failure secondary to terminal COPD and respiratory acidosis Sepsis secondary to suspected left lower lobe pneumonia Tachycardic Tachypneic Constipation History of osteoarthritis History of sciatica and scoliosis History of anxiety Plan Acute hypoxic respiratory failure secondary to terminal COPD and respiratory acidosis Sepsis secondary to suspected left lower lobe pneumonia Blood cultures with no growth to date Continuous pulse ox- oxygenation goal 88%-92% Needing 6-7 lpm at this time, still with dyspnea, tachypnea Pulmonary following, working on NIV setup for outpatient Solumedrol, zithromax, daliresp, diamox patient with significant decline from baseline Lives at home with 87 year old boyfriend who can not help care for her States there is no way she can be safely discharged home Reports serious decline in function/breathing in the last few months Attempting for inpatient hospice vs SNF Still requiring high concentrations of nasal cannula oxygen Hyperphosphatemia Monitor phosphorus Constipation lactulose Dulcolax History of osteoarthritis History of sciatica and scoliosis History of Anxiety Continue home medication Supportive care DVT PPx Lovenox Full code LOS 2 days Discharge Plan: Awaiting hospice placement vs SNF
[2024-06-03] MEDS: MORPHINE *EXTENDED RELEASE* 15 MG TAB PO SCH (10:00)
[2024-06-03] MEDS: MAGNESIUM SULFATE 1 gm IVPB 1 GM/100 ML BAG IV ONE (10:13)
--- NOTE | 2024-06-03 16:14 | P.DS ---
Admission Date: 05/17/24 Discharge Date: 06/03/24 Disposition: HOSPICE-MEDICAL FACILITY Discharge Condition: FAIR Reason for Admission: COPD exacerbation Consultations: PulmonologyDr. Thomas Brief History of Present Illness: Carmenza Saldivar is a 73-year-old female with past medical history of oxygen dependent terminal COPD, osteoarthritis, sciatica, scoliosis, who presents to the ED with chief complaint of difficulty breathing specifically dyspnea on exertion as well as shortness of breath at rest. She reports arriving home from inpatient rehab and did not feel any better. She felt as if she was able to walk at inpatient rehab but her limitation was her ability to breathe while walking. She has had multiple admission for shortness of breath. On examination, she is short of breath while speaking, diminished breath sounds to LLL, tachycardic, and tachypneic, on high flow oxygen. Hospital Course: Problem list Acute hypoxic respiratory failure secondary to terminal COPD and respiratory acidosis Sepsis secondary to suspected left lower lobe pneumonia Tachycardic Tachypneic Constipation History of osteoarthritis History of sciatica and scoliosis History of anxiety Patient was admitted to the hospital for acute on chronic hypoxic respiratory failure secondary to COPD exacerbation. She was previously oxygen dependent but had significant worsening. She was evaluated and treated by pulmonology maximized her medical therapy as best as he possibly can. Patient still requiring high concentrations of oxygen typically between 5 and 7 L per nasal cannula. She has very advanced/terminal COPD and her functional ability has significantly declined over the past few months. Given her significant functional decline and worsening respiratory status hospice was discussed and the family and patient were in agreement. Patient has been accepted to [facility] for respite care with choice of hospice and DME has been delivered to help care for patient. Vital Signs/Physical Exam: Temp Pulse Resp BP Pulse Ox 97.3 F 78 16 113/63 92 06/03/24 12:00 06/03/24 12:00 06/03/24 12:32 06/03/24 12:00 06/03/24 12:32 General: Alert, In no apparent distress, Oriented x3 HEENT: Atraumatic, PERRLA Neck: Supple, JVD not distended Respiratory: Diminished, Other (on 6LPM NC) Cardiovascular: Regular rate/rhythm, Normal S1 S2 Gastrointestinal: Normal bowel sounds, No tenderness Musculoskeletal: No tenderness Integumentary: No rashes Neurological: Normal speech, Normal tone, Normal affect Laboratory Data at Discharge: WBC 11.20 thou/uL (4.3-10.9) H 06/03/24 05:52 Hgb 10.8 g/dL (12.0-15.0) L 06/03/24 05:52 Hct 33.5 % (36.0-45.0) L 06/03/24 05:52 Plt Count 367 thou/uL (152-406) 06/03/24 05:52 PT 13.1 SECONDS (9.4-12.5) H 05/17/24 12:47 INR 1.20 05/17/24 12:47 APTT 30.8 SECONDS (24.3-36.9) 05/17/24 12:47 Sodium 134 mEq/L (136-145) L 06/03/24 05:52 Potassium 3.8 mEq/L (3.5-5.1) 06/03/24 05:52 BUN 10 mg/dL (7-18) 06/03/24 05:52 Creatinine 0.45 mg/dL (0.55-1.02) L 06/03/24 05:52 Glucose 126 mg/dL (74-106) H 06/03/24 05:52 Phosphorus 3.6 mg/dL (2.5-4.9) 06/03/24 05:52 Magnesium 1.8 mg/dL (1.6-2.4) 06/03/24 05:52 Total Bilirubin Cancelled 05/17/24 12:55 AST Cancelled 05/17/24 12:55 ALT Cancelled 05/17/24 12:55 Alkaline Phosphatase Cancelled 05/17/24 12:55 Home Medications: ALPRAZolam [Xanax*] 0.25 mg PO BID 10/03/15 Aspirin Chewable [Aspirin Chewable*] 81 mg PO DAILY tab.chew 01/06/23 Atorvastatin Calcium [Lipitor] 40 mg PO BEDTIME 02/27/24 Duloxetine HCl 60 mg PO DAILY 02/27/24 Metoprolol Succinate [Toprol Xl] 25 mg PO BID 02/27/24 Montelukast [Singulair*] 10 mg PO DAILY 02/27/24 Pantoprazole [Protonix Tab*] 40 mg PO DAILY 02/27/24 Sucralfate [Carafate*] 1 gm PO SEECOM 04/11/24 Mirtazapine 15 mg PO BEDTIME 05/18/24 Docusate [Colace Cap*] 100 mg PO BID cap 06/03/24 Morphine *Extended Release* [MS Contin*] 15 mg PO BID tab 06/03/24 Oxycodone HCl/Acetaminophen [Percocet 5/325 Tab*] 1 tab PO Q6H PRN tab 06/03/24 Roflumilast [Daliresp*] 500 mcg PO DAILY 06/03/24 Spironolactone [Aldactone*] 25 mg PO DAILY tab 06/03/24 predniSONE [Deltasone*] 10 mg PO BID tab 06/03/24 Physician Discharge Instructions: Patient was admitted to the hospital for acute on chronic hypoxic respiratory failure secondary to COPD exacerbation. She was previously oxygen dependent but had significant worsening. She was evaluated and treated by pulmonology maximized her medical therapy as best as he possibly can. Patient still requiring high concentrations of oxygen typically between 5 and 7 L per nasal cannula. She has very advanced/terminal COPD and her functional ability has significantly declined over the past few months. Given her significant functional decline and worsening respiratory status hospice was discussed and the family and patient were in agreement. Patient has been accepted to [facility] for respite care with choice of hospice and DME has been delivered to help care for patient. Please call and schedule a follow-up appointment with Dr. Thomas Continue Regular diet Activity restrictions Fall precautions Hospice care arranged with: [facility] P:[phone] F:[phone] Plant Custodian: Dr. Wild Reed Diet: Regular Activity: Fall precautions Followup: Ivan Thomas MD [ACTIVE - CAN ADMIT] - 1-2 Weeks (3-5 days) NONE,NONE [Primary Care Provider] - Time spent managing pt's care (in minutes): 35
[2024-06-03 20:48] VITALS: O2SAT 94
[2024-06-03 21:09] VITALS: BP 114/59
[2024-06-03 22:43] VITALS: TEMP 96.7
== END 2024-06-03 21:00 | disposition hospice, inpatient (51) | DRG 871 ==
LOC: ER 12:13 → ERHOLD 14:55 → 2ND 17:57 → 4TH 06-01 13:37 → UNDODISIN 06-03 21:00
PROVIDERS: ADMIT Internal Medicine; ATTEND Internal Medicine
PROC: 4A033R1 Measurement of Arterial Saturation, Peripheral, Percutaneous Approach (ICD-10-PCS; principal; 2024-05-17)
PROC: 5A09457 Assistance with Respiratory Ventilation, 24-96 Consecutive Hours, Continuous Positive Airway Pressure (ICD-10-PCS; 2024-05-17)
PROC: 5A0935A Assistance with Respiratory Ventilation, Less than 24 Consecutive Hours, High Flow/Velocity Cannula (ICD-10-PCS; 2024-05-20)
DX: A41.9 Sepsis, unspecified organism (principal); J18.9 Pneumonia, unspecified organism; J96.01 Acute respiratory failure with hypoxia; J44.0 Chronic obstructive pulmonary disease with (acute) lower respiratory infection; J44.1 Chronic obstructive pulmonary disease with (acute) exacerbation; E87.1 Hypo-osmolality and hyponatremia; E83.39 Other disorders of phosphorus metabolism; M41.9 Scoliosis, unspecified; F41.9 Anxiety disorder, unspecified; K59.00 Constipation, unspecified; E87.6 Hypokalemia; R00.0 Tachycardia, unspecified; Z66 Do not resuscitate; Z51.5 Encounter for palliative care
CPT/HCPCS: 36415; 71045; 71275; 80048; 80053; 81001; 82805; 83605; 83735; 83880; 84100; 84132; 84484; 85025; 85027; 85610; 85730; 87040; 93005; 93306; 94010; 94640; 94660; 94760; 96365; 96366; 96367; 96368; 96375; 97161; 97530; 99285; J0692; J1120; J1650; J2310; J2919; J3475; J3535; J7030; J7050; J7512; J7608; J7613; J7614; J7644; Q9967

== ENCOUNTER 2024-11-21 16:40 | Emergency (ER) | payer OTHER ==
--- NOTE | 2024-11-21 18:50 | RAD REPORT ---
EXAMINATION: Ribs Bilateral CLINICAL INDICATION: Female, 74 years old. PAIN COMPARISON: No prior exam. FINDINGS: No displaced rib fractures identified bilaterally. No pneumothorax. The lungs are clear. No healing r ib fractures. IMPRESSION: No displaced rib fractures are identified. Acute nondisplaced or minimally displaced rib fractures ma y not be apparent radiographically
[2024-11-21] MEDS ORDERED: IBUPROFEN 200 MG TAB PO ONE (19:50)
[2024-11-21] MEDS ORDERED: ACETAMINOPHEN 325 MG TABLET ONE (19:50)
[2024-11-21 20:39] LABS: Specific Gravity 1.019 (1.005-1.030); Sqamous Epithelial <5 /HPF (None Seen); Urine Bacteria None Seen /HPF (<20); Urine Bilirubin NEGATIVE (Negative); Urine Blood 2+ (Negative); Urine Clarity Turbid (Clear); Urine Color Yellow (Yellow); Urine Crystals Unidentified Few /HPF (None Seen); Urine Culture Reflex Order NOT NEEDED; Urine Glucose NEGATIVE (Negative); Urine Ketones 1+ (Negative); Urine Micro Reflex YN NO BILL MICROSCOPIC; Urine Mucus Slight /HPF (None Seen); Urine Nitrite NEGATIVE (Negative); Urine Protein 1+ (Negative); Urine Urobilinogen Normal (Normal); Urine WBC <5 /HPF (<5); Urine WBC Clump Rare /HPF (None Seen); Urine Yeast (Budding) Trace /HPF (None Seen); Urine pH 5.5 (5.0-7.0)
--- NOTE | 2024-11-21 21:11 | ER ---
Nurse's Notes [facility] Name: Carmenza Saldivar Age: 74 yrs Sex: Female : 1950 Arrival Date: 11/21/2024 Time: 16:40 Bed 7 Private MD: Diagnosis: Chronic pain, not elsewhere classified Presentation: 11/21 17:54 Chief complaint: Patient states: bilateral rib pain since last week post mechanical jl7 fall. Coronavirus screen: At this time, the client does not indicate any symptoms associated with coronavirus-19. Ebola Screen: No symptoms or risks identified at this time. Initial Sepsis Screen: Does the patient meet any 2 criteria? No. Patient's initial sepsis screen is negative. Does the patient have a suspected source of infection? No. Patient's initial sepsis screen is negative. Risk Assessment: Do you want to hurt yourself or someone else? Patient reports no desire to harm self or others. Onset of symptoms is unknown. 17:54 Method Of Arrival: Wheelchair jl7 17:54 Acuity: ROBIN 3 jl7 Triage Assessment: 17:55 General: Appears in no apparent distress. uncomfortable, Behavior is calm, cooperative, jl7 appropriate for age. Pain: Complains of pain in bilateral rib pain. Historical: - Allergies: 17:55 No Known Allergies; jl7 - PMHx: 17:55 02 dependent 2LNC PRN; chronic back pain; COPD; osteoarthritis; sciatica; scoliosis; jl7 - PSHx: 17:55 hysterectomy; jl7 - Immunization history:: Adult Immunizations unknown. - Infectious Disease History:: Denies. - Social history:: Smoking status: Patient denies any tobacco usage or history of. Screenin:20 [facility] ED Fall Risk Assessment (Adult) History of falling in the last 3 months, ko1 including since admission Yes- single mechanical fall (1 pt) Confusion or Disorientation No (0 pts) Intoxicated or Sedated No (0 pts) Impaired Gait Yes (1 pt) Mobility Assist Device Used Yes (1 pt) Altered Elimination No (0 pt) Score/Fall Risk Level 0 - 2 = Low Risk Oriented to surroundings, Maintained a safe environment, Educated pt \T\ family on fall prevention, incl call for assistance when getting out of bed, Assessed \T\ reinforced patient's understanding of fall precautions, Provided non-skid footwear, Hourly rounding (assess needs \T\ fall precautionary measures) done. Abuse screen: Denies threats or abuse. Denies injuries from another. Nutritional screening: No deficits noted. Tuberculosis screening: No symptoms or risk factors identified. 19:20 [facility] ED Fall Risk Assessment (Adult) History of falling in the last 3 months, ay including since admission Yes- single mechanical fall (1 pt) Confusion or Disorientation No (0 pts) Intoxicated or Sedated No (0 pts) Impaired Gait Yes (1 pt) Mobility Assist Device Used Yes (1 pt) Altered Elimination No (0 pt) Score/Fall Risk Level 0 - 2 = Low Risk Oriented to surroundings, Maintained a safe environment, Educated pt \T\ family on fall prevention, incl call for assistance when getting out of bed, Assessed \T\ reinforced patient's understanding of fall precautions, Provided non-skid footwear, Hourly rounding (assess needs \T\ fall precautionary measures) done. Abuse screen: Denies threats or abuse. Denies injuries from another. Nutritional screening: No deficits noted. Tuberculosis screening: No symptoms or risk factors identified. Assessment: 18:20 General: Appears in no apparent distress. uncomfortable, Behavior is calm, cooperative, ko1 appropriate for age. Pain: Complains of pain in bilateral ribs. Neuro: No deficits noted. Cardiovascular: No deficits noted. Respiratory: No deficits noted. GI: No deficits noted. : No deficits noted. EENT: No deficits noted. Derm: No deficits noted. Musculoskeletal: Reports pain in bilateral ribs. 19:20 General: Appears in no apparent distress. uncomfortable, Behavior is calm, cooperative. ay 19:20 Pain: Complains of pain in right hip pain Pain currently is 10 out of 10 on a pain ay scale. Neuro: Level of Consciousness is awake, alert, obeys commands, Oriented to person, place, situation. Cardiovascular: Denies chest pain. Respiratory: Airway is patent Respiratory effort is even, unlabored, COPD Breath sounds with wheezes bilaterally. GI: Abdomen is flat, Bowel sounds present X 4 quads. : No signs and/or symptoms were reported regarding the genitourinary system. EENT: No signs and/or symptoms were reported regarding the EENT system. Derm: Bruising that is on right forearm. Musculoskeletal: Reports weakness in generalized weakness. Vital Signs: 17:54 BP 163 / 95; Pulse 88; Resp 17; Temp 97.9; Pulse Ox 94% ; Pain 9/10; jl7 21:18 BP 127 / 73; Pulse 94; Resp 20; Pulse Ox 96% on 4 lpm NC; ay 17:54 Pain Scale: Adult jl7 [facility] Coma Score: 19:20 Eye Response: spontaneous(4). Motor Response: obeys commands(6). Verbal Response: ay oriented(5). Total: 15. ED Course: 16:41 Patient arrived in ED. mr 16:47 Dee Crawley MD is Attending Physician. gb1 17:54 Letitia Kasper, RN is Primary Nurse. ko1 17:55 Triage completed. jl7 17:55 Arm band placed on right wrist. jl7 18:20 Patient has correct armband on for positive identification. Fall risk band placed. Bed ko1 in low position. Call light in reach. Side rails up X2. Provided Education on: xray. 18:40 Ribs Bilateral XRAY In Process Unspecified. EDMS 19:20 Patient has correct armband on for positive identification. Fall risk band placed. Bed ay in low position. Call light in reach. Side rails up X2. Provided Education on: plan of care. Warm blanket given. 21:10 Attending Physician role handed off by Dee Crawley MD [facility] 21:10 Nicolas Tyson MD is Attending Physician. dov 21:18 No provider procedures requiring assistance completed. Patient did not have IV access ay during this emergency room visit. Administered Medications: 20:00 Drug: Acetaminophen PO 650 mg PO once Route: PO; ay 21:41 Follow up: Response: No adverse reaction ay 20:00 Drug: Ibuprofen PO 600 mg PO once Route: PO; ay 21:41 Follow up: Response: No adverse reaction ay Medication: 19:20 VIS not applicable for this client. ay Outcome: 21:11 Discharge ordered by . dov 21:18 Discharged to home via wheelchair, ay 21:18 Condition: stable 21:18 Discharge instructions given to patient, Instructed on discharge instructions, Demonstrated understanding of instructions, 21:40 Patient left the ED. ay Signatures: Dispatcher [employer] EDIL Nicolas Tyson MD MD cha Rivera, Mary, Reg Reg Marvin Pavon RN RN jlLetitia Carrasco, RN RN ko1 Dee Crawley MD MD gb1 Lottie Laguna, RN RN ay
--- NOTE | 2024-11-21 21:11 | EDPHYS ---
Physician Documentation [facility] Name: Carmenza Saldivar Age: 74 yrs Sex: Female : 1950 Arrival Date: 11/21/2024 Time: 16:40 Bed 7 Private MD: DANIEL Physician Nicolas Tyson HPI: 11/21 19:52 This 74 yrs old Female presents to ER via Wheelchair with complaints of Rib gb1 pain. 19:52 74-year-old female with bilateral rib pain she denies any falls or trauma. She has gb1 history of scoliosis and osteoarthritis. She has a history of chronic back pain and she is oxygen dependent on 2 L nasal cannula as needed. She denies any cough or fevers as well.. Historical: - Allergies: 17:55 No Known Allergies; jl7 - PMHx: 17:55 02 dependent 2LNC PRN; chronic back pain; COPD; osteoarthritis; sciatica; scoliosis; jl7 - PSHx: 17:55 hysterectomy; jl7 - Immunization history:: Adult Immunizations unknown. - Infectious Disease History:: Denies. - Social history:: Smoking status: Patient denies any tobacco usage or history of. ROS: 21:11 Constitutional: Negative for fever, chills, and weight loss, Eyes: Negative for injury, dov pain, redness, and discharge, ENT: Negative for injury, pain, and discharge, Neck: Negative for injury, pain, and swelling, Cardiovascular: Negative for chest pain, palpitations, and edema, Respiratory: Negative for shortness of breath, cough, wheezing, and pleuritic chest pain, Abdomen/GI: Negative for abdominal pain, nausea, vomiting, diarrhea, and constipation, Back: Negative for injury and pain, MS/Extremity: Negative for injury and deformity, Skin: Negative for injury, rash, and discoloration, Neuro: Negative for headache, weakness, numbness, tingling, and seizure, Psych: Negative for depression, anxiety, suicide ideation, homicidal ideation, and hallucinations, Allergy/Immunology: Negative for hives, rash, and allergies, Endocrine: Negative for neck swelling, polydipsia, polyuria, polyphagia, and marked weight changes, Hematologic/Lymphatic: Negative for swollen nodes, abnormal bleeding, and unusual bruising, Exam: 19:52 Constitutional: This is a well developed, well nourished patient who is awake, alert, gb1 and in no acute distress. Head/Face: Normocephalic, atraumatic. Eyes: Pupils equal round and reactive to light, extra-ocular motions intact. Lids and lashes normal. Conjunctiva and sclera are non-icteric and not injected. Cornea within normal limits. Periorbital areas with no swelling, redness, or edema. ENT: Nares patent. No nasal discharge, no septal abnormalities noted. Tympanic membranes are normal and external auditory canals are clear. Oropharynx with no redness, swelling, or masses, exudates, or evidence of obstruction, uvula midline. Mucous membranes moist. Neck: Trachea midline, no thyromegaly or masses palpated, and no cervical lymphadenopathy. Supple, full range of motion without nuchal rigidity, or vertebral point tenderness. No Meningismus. Chest/axilla: Normal chest wall appearance and motion. Nontender with no deformity. No lesions are appreciated. Cardiovascular: Regular rate and rhythm with a normal S1 and S2. No gallops, murmurs, or rubs. Normal PMI, no JVD. No pulse deficits. Respiratory: Lungs have equal breath sounds bilaterally, clear to auscultation and percussion. No rales, rhonchi or wheezes noted. No increased work of breathing, no retractions or nasal flaring. Abdomen/GI: Soft, non-tender, with normal bowel sounds. No distension or tympany. No guarding or rebound. No evidence of tenderness throughout. Back: No spinal tenderness. No costovertebral tenderness. Full range of motion. Skin: Warm, dry with normal turgor. Normal color with no rashes, no lesions, and no evidence of cellulitis. MS/ Extremity: Pulses equal, no cyanosis. Neurovascular intact. Full, normal range of motion. Vital Signs: 17:54 BP 163 / 95; Pulse 88; Resp 17; Temp 97.9; Pulse Ox 94% ; Pain 9/10; jl7 21:18 BP 127 / 73; Pulse 94; Resp 20; Pulse Ox 96% on 4 lpm NC; ay 17:54 Pain Scale: Adult jl7 [place] Coma Score: 19:20 Eye Response: spontaneous(4). Motor Response: obeys commands(6). Verbal Response: ay oriented(5). Total: 15. MDM: 17:45 Medical Screening Exam initiated gb1 19:52 Differential diagnosis: acute pericarditis, chest wall pain, costochondritis, gb1 gastritis. Data reviewed: vital signs, nurses notes. 19:52 ED course: 74-year-old female with bilateral hip pain no acute rib fractures or concern gb1 for traumatic compression fracture lumbar spine. Patient does have chronic pain and I believe at this time is drug-seeking. She does has a history of osteoarthritis and sciatica along with a scoliosis. Discharge home with recommendations for outpatient pain management.. 20:32 ED course: Pending urinalysis patient is set for discharge if urinalysis is negative gb1 she can be discharged without antibiotics if is positive and she will be prescribed antibiotics. Patient is otherwise stable and at this time I will did have a discussion with her about discharge planning and follow-up with pain management for her scoliosis.. 12 19:17 Order name: UAM; Complete Time: 21:11 gb1 11/21 18:11 Order name: Ribs Bilateral XRAY; Complete Time: 19:02 gb1 Administered Medications: 20:00 Drug: Acetaminophen PO 650 mg PO once Route: PO; ay 21:41 Follow up: Response: No adverse reaction ay 20:00 Drug: Ibuprofen PO 600 mg PO once Route: PO; ay 21:41 Follow up: Response: No adverse reaction ay Disposition Summary: 11/21/24 21:11 Discharge Ordered Notes: Location: Home dov Problem: chronic dov Symptoms: have improved dov Condition: Stable dov Diagnosis - Chronic pain, not elsewhere classified dov Followup: gb1 - With: Private Physician - When: - Reason: Recheck today's complaints Discharge Instructions: - Discharge Summary Sheet gb1 - Chronic Pain, Adult gb1 Forms: - Medication Reconciliation Form dov - Antibiotic Education dov - Prescription Opioid Use dov - Patient Portal Instructions dov - Leadership Thank You Letter dov Signatures: Dispatcher [employer] EDMS Nicolas Tyson MD MD cha Leal, Jahala, RN RN jl7 Dee Crawley MD MD gb1 Lottie Laguna RN RN ay Corrections: (The following items were deleted from the chart) 19:17 19:17 Urinalysis W/Microscopic+U.LAB.BRZ ordered. EDMS EDMS
[2024-11-22 03:40] VITALS: TEMP 97.9
[2024-11-22 03:42] VITALS: BP 127/73; O2SAT 96
== END 2024-11-21 21:40 | disposition home or self-care (01) ==
LOC: ER 16:40
DX: G89.29 Other chronic pain (principal); J44.9 Chronic obstructive pulmonary disease, unspecified; Z99.81 Dependence on supplemental oxygen
CPT/HCPCS: 71110; 81001; 99283

== ENCOUNTER 2024-11-22 06:40 | Emergency (ER) | payer OTHER ==
[2024-11-22] MEDS ORDERED: METHYLPREDNISOLONE 125 MG INJ ONE (07:18)
[2024-11-22] MEDS ORDERED: IPRATROPIUM BROM 0.5MG/2.5ML ONE (07:18)
[2024-11-22] MEDS ORDERED: predniSONE 20 MG TAB ONE (07:18)
[2024-11-22] MEDS ORDERED: LEVALBUTEROL 1.25 MG/3 ML NEB ONE (07:18)
[2024-11-22] MEDS ORDERED: NA CHLORIDE 0.9% 1,000 ML ONE (07:19)
[2024-11-22] MEDS ORDERED: levoFLOXacin 250 MG TAB ONE (07:19)
[2024-11-22 07:22] LABS: Absolute Eosinophils 0.1 K/uL (0-0.5); Absolute Lymphocytes (CBC) 0.8 K/uL (0.7-4.9); Absolute Monocytes 1.3 K/uL (0.1-1.3); Absolute Neutrophil 8.4 K/uL (1.8-8.0); Basophils % 0.2 % (0-1.3); Eosinophils % 1.1 % (0-4.4); Hematocrit 42.8 % (36.0-45.0); Hemoglobin 13.6 g/dL (12.0-15.0); Lymphocytes % 7.4 % (15.3-44.8); MCH 29.1 pg (27.0-35.0); MCHC 31.8 g/dL (32.0-36.0); MCV 91.6 fL (80-100); MPV 9.5 fL (7.6-11.3); Monocytes % 12.2 % (3.3-12.3); Neutrophils % 79.1 % (41.7-73.7); Nucleated Red Blood Cells % 0.1 % (0-0); Platelets 342 thou/uL (152-406); RBC Red Blood Cell Count 4.67 M/uL (3.86-4.86); Red Cell Distribution Width 17.4 % (12.1-15.2)
[2024-11-22 07:37] LABS: SARS-CoV-2 Antigen CONTROL BLUE LINE VIS/BG OK; SARS-CoV-2 Antigen Rapid Res Negative (Negative)
[2024-11-22 07:43] LABS: ALT/SGPT 87 U/L (13-56); AST/SGOT 229 U/L (15-37); Albumin/Globulin Ratio 1.1 (1.1-1.8); Alkaline Phosphatase 76 U/L (45-117); Anion Gap 14.2 mEq/L (5.0-15.0); BUN Blood Urea Nitrogen 92 mg/dL (7-18); Bicarbonate 25 mEq/L (21-32); Bilirubin Total 0.5 mg/dL (0.2-1.0); Globulin 3.7 g/dL (2.3-3.5); Glomerular Filtration Rate 36 ml/min (=/>90); Glucose Level 95 mg/dL (74-106); Lipase 26 U/L (13-75); Magnesium 2.9 mg/dL (1.6-2.4); NT PRO-BNP 319 pg/mL (<125); Potassium 3.2 mEq/L (3.5-5.1); Protein, Total 7.7 g/dL (6.4-8.2); Sodium Level 135 mEq/L (136-145); Troponin High Sensitivity 18.4 pg/mL (<58.9)
[2024-11-22 07:44] LABS: Bilirubin Direct < 0.2 mg/dL (0-0.2); Bilirubin Indirect, Calculated 0.3 mg/dL (0.2-0.8)
--- NOTE | 2024-11-22 07:56 | RAD REPORT ---
Procedure: Chest Single View HISTORY: Cough COMPARISON: November 21, 2024 FINDINGS: The lungs appear clear of acute infiltrate. Lungs are hyperaerated. No significant pleural effusion noted. The heart is normal size. IMPRESSION: COPD without visualization of an acute abnormality
[2024-11-22 08:19] LABS: D-Dimer 1.13 FEUug/mL (0-0.500); PT Prothrombin Time 11.6 SECONDS (9.4-12.5); Protime INR 1.04
--- NOTE | 2024-11-22 09:05 | RAD REPORT ---
EXAMINATION: CTA CHEST PE CLINICAL INDICATION: Chest pain TECHNIQUE: 100 cc 370 Isovue administered intravenously. This examination was performed according to an angiographic protocol with 3D post-processing. This involves 3D reconstructions, MIPs, volume rendered images and/or shaded surface rendering. One or more of the following dose reduction techniqu es were used: Automated exposure control, adjustment of the mA and/or kV according to patient size, and/or iterative reconstruction. Unless otherwise specified, incidental findings do not require dedic ated imaging follow-up. [id number]. COMPARISON: April 2024 FINDINGS: A pulmonary embolus is not seen. An aortic aneurysm not noted. No pleural effusion. No pericardial effusion. Mild left lower lobe atelectasis unchanged. Stable compression fractures thoracic spine. IMPRESSION: No evidence of a pulmonary embolism
--- NOTE | 2024-11-22 10:11 | EDPHYS ---
Physician Documentation [facility] Name: Carmenza Saldivar Age: 74 yrs Sex: Female : 1950 Arrival Date: 11/22/2024 Time: 06:40 Bed 5 Private MD: ED Physician Rey Villa HPI: 11/22 06:59 This 74 yrs old Female presents to ER via Unassigned with complaints of dov Shortness Of Breath. 06:59 The patient has shortness of breath with light activity. Onset: The symptoms/episode dov began/occurred 2 day(s) ago. Duration: The symptoms are continuous, and are steadily getting worse. The patient's shortness of breath has no apparent modifying factors. Associated signs and symptoms: The patient has no apparent associated signs or symptoms. Severity of symptoms: At their worst the symptoms were mild moderate in the emergency department the symptoms are unchanged. The patient has experienced similar episodes in the past, multiple times. Historical: - Allergies: 07:02 No Known Allergies; vc1 - PMHx: 07:02 02 dependent 2LNC PRN; chronic back pain; COPD; osteoarthritis; sciatica; scoliosis; vc1 - PSHx: 07:02 hysterectomy; vc1 - Immunization history:: Client reports receiving the 2nd dose of the Covid vaccine, Flu vaccine is up to date. - Infectious Disease History:: Denies. - Family history:: not pertinent. - Social history:: Smoking status: Patient denies any tobacco usage or history of. ROS: 06:59 Constitutional: Negative for fever, chills, and weight loss, Eyes: Negative for injury, dov pain, redness, and discharge, ENT: Negative for injury, pain, and discharge, Neck: Negative for injury, pain, and swelling, Cardiovascular: Negative for chest pain, palpitations, and edema, Abdomen/GI: Negative for abdominal pain, nausea, vomiting, diarrhea, and constipation, : Negative for injury, bleeding, discharge, and swelling, MS/Extremity: Negative for injury and deformity, Skin: Negative for injury, rash, and discoloration, Neuro: Negative for headache, weakness, numbness, tingling, and seizure, Psych: Negative for depression, anxiety, suicide ideation, homicidal ideation, and hallucinations, Allergy/Immunology: Negative for hives, rash, and allergies, Endocrine: Negative for neck swelling, polydipsia, polyuria, polyphagia, and marked weight changes, Hematologic/Lymphatic: Negative for swollen nodes, abnormal bleeding, and unusual bruising, 06:59 Respiratory: Positive for cough, shortness of breath, wheezing, expiratory, Exam: 06:59 Constitutional: This is a well developed, well nourished patient who is awake, alert, dov and in no acute distress. Head/Face: Normocephalic, atraumatic. Eyes: Pupils equal round and reactive to light, extra-ocular motions intact. Lids and lashes normal. Conjunctiva and sclera are non-icteric and not injected. Cornea within normal limits. Periorbital areas with no swelling, redness, or edema. ENT: Nares patent. No nasal discharge, no septal abnormalities noted. Tympanic membranes are normal and external auditory canals are clear. Oropharynx with no redness, swelling, or masses, exudates, or evidence of obstruction, uvula midline. Mucous membranes moist. Neck: Trachea midline, no thyromegaly or masses palpated, and no cervical lymphadenopathy. Supple, full range of motion without nuchal rigidity, or vertebral point tenderness. No Meningismus. Chest/axilla: Normal chest wall appearance and motion. Nontender with no deformity. No lesions are appreciated. Cardiovascular: Regular rate and rhythm with a normal S1 and S2. No gallops, murmurs, or rubs. Normal PMI, no JVD. No pulse deficits. Abdomen/GI: Soft, non-tender, with normal bowel sounds. No distension or tympany. No guarding or rebound. No evidence of tenderness throughout. Back: No spinal tenderness. No costovertebral tenderness. Full range of motion. Female : Normal external genitalia. Skin: Warm, dry with normal turgor. Normal color with no rashes, no lesions, and no evidence of cellulitis. MS/ Extremity: Pulses equal, no cyanosis. Neurovascular intact. Full, normal range of motion., bilateral aka Neuro: Awake and alert, GCS 15, oriented to person, place, time, and situation. Cranial nerves II-XII grossly intact. Motor strength 5/5 in all extremities. Sensory grossly intact. Cerebellar exam normal. Normal gait. Psych: Awake, alert, with orientation to person, place and time. Behavior, mood, and affect are within normal limits. 06:59 Respiratory: mild respiratory distress is noted, Respirations: labored breathing, that is mild, Breath sounds: bronchial sounds, that are mild, are scattered, decreased breath sounds, that are mild, are scattered, rhonchi, are not appreciated, stridor, is not appreciated, wheezing: expiratory is scattered, Respiratory rate: 14 07:02 Musculoskeletal/extremity: Circulation is intact in all extremities. Sensation intact. dov Compartment Syndrome exam of affected extremity: is normal. Weight bearing: able to fully bear weight, without difficulty, DVT Exam: No signs of deep vein thrombosis. no pain, no swelling, no tenderness, negative Homans' sign noted on exam, no appreciated bluish discoloration, no erythema, no increased warmth, 11:37 ECG was reviewed by the Attending Physician. rn Vital Signs: 06:57 BP 143 / 74; Pulse 92; Resp 14; Temp 97.8; Pulse Ox 96% on 3 lpm NC; Weight 55.34 kg; vc1 Height 5 ft. 3 in. ; 07:27 BP 128 / 80; Pulse 87; Resp 19; Pulse Ox 3% on NC; iw 09:06 BP 136 / 76; Pulse 90; Resp 19; Pulse Ox 100% on 3 lpm NC; iw 09:55 BP 125 / 64; Pulse 89; Resp 19; Pulse Ox 99% on 3 lpm NC; iw 10:40 BP 127 / 67; Pulse 74; Resp 17; Pulse Ox 95% on 3 lpm NC; rs5 06:57 Body Mass Index 21.61 (55.34 kg, 160.02 cm) vc1 MDM: 06:48 Medical Screening Exam initiated dov 07:01 Differential diagnosis: Anemia Anxiety Reaction asthma, Bronchitis CHF exacerbation, dov Chronic Obstructive Pulmonary Disease Myocardial Infarction pneumonia, Pneumothorax Psychogenic pulmonary edema, Pulmonary Embolism reactive airway disease, Sepsis Unstable Angina. Antibiotic administration: The patient is discharged and will get outpatient antibiotics, Levaquin. Immunization status: Pneumococcal vaccine: within last 5 years. Influenza vaccine: within last 5 years. Data reviewed: vital signs, nurses notes, lab test result(s), EKG, radiologic studies, plain films. Consideration of Admission/Observation Escalation of care including admission/observation considered. I considered the following discharge prescriptions or medication management in the emergency department Medications were administered in the Emergency Department. See MAR. Independent interpretation of the following test(s) in the Emergency Department EKG: See my EKG interpretation above. Test considered but Not performed: Ultrasound NO 2 D ECHO. Care significantly affected by the following chronic conditions: Chronic Obstructive Pulmonary Disease, 3 LITERS AT HOME. Counseling: I had a detailed discussion with the patient and/or guardian regarding the historical points, exam findings, and any diagnostic results supporting the discharge/admit diagnosis, lab results, radiology results. 10:08 Special discussion: I discussed with the patient/guardian in detail that at this point rn there is no indication for admission to the hospital. It is understood, however, that if the symptoms persist or worsen the patient needs to return immediately for re-evaluation. ED course: No acute findings and workup. CT chest for PE negative. Seems like patient had difficulty breathing due to being discharged and put in lobby without oxygen for prolonged period of time. Now is at home level of oxygen with 99% O2. Troponin negative. Dizziness explained by dehydration and volume depletion. Patient feels much better and resting comfortably, sleeping without increase in oxygen requirement. Patient has no complaints at this time. Will discharge home with return precautions.. 11/22 06:58 Order name: Basic Metabolic Panel; Complete Time: 07:50 [facility] 11/22 06:58 Order name: CBC with Diff; Complete Time: 07:50 [facility] 11/22 06:58 Order name: D-Dimer; Complete Time: 08:20 [facility] 11/22 06:58 Order name: LFT's; Complete Time: 07:50 [facility] 11/22 06:58 Order name: Magnesium; Complete Time: 07:50 [facility] 11/22 06:58 Order name: NT PRO-BNP; Complete Time: 07:50 [facility] 11/22 06:58 Order name: PT-INR; Complete Time: 08:20 [facility] 11/22 06:58 Order name: Troponin HS; Complete Time: 07:50 [facility] 11/22 06:58 Order name: Flu; Complete Time: 07:50 [facility] 11/22 06:58 Order name: SARS RAPID; Complete Time: 07:50 [facility] 11/22 06:58 Order name: Lipase; Complete Time: 07:50 [facility] 11/22 06:59 Order name: Blood Culture Adult (2) [facility] 11/22 06:58 Order name: XRAY Chest (1 view); Complete Time: 08:02 [facility] 11/22 08:20 Order name: CT Chest For PE Angio; Complete Time: 09:17 rn 11/22 06:58 Order name: Cardiac monitoring; Complete Time: 07:25 dov 11/22 06:58 Order name: EKG - Nurse/Tech; Complete Time: 07:25 dov 11/22 06:58 Order name: IV Saline Lock; Complete Time: 07:25 dov 11/22 06:58 Order name: Labs collected and sent; Complete Time: 07:25 dov 11/22 06:58 Order name: O2 Per Protocol; Complete Time: 07:25 dov 11/22 06:58 Order name: O2 Sat Monitoring; Complete Time: 07:25 [facility] EC:37 Rate is 80 beats/min. Rhythm is regular. QRS [place] is Normal. SD interval is normal. QRS rn interval is normal. No Q waves. T waves are Normal. No ST changes noted. Clinical impression: NSR w/ Non-specific ST/T Changes. Interpreted by me. Reviewed by me. Administered Medications: 07:30 Drug: NS 0.9% IV 500 ml 500 ml IV at 1 bolus once; to be given as a bolus over 30 rs5 minutes Volume: 500 ml; Route: IV; Rate: 1 bolus; Site: right antecubital; 08:02 Follow up: Response: No adverse reaction; IV Intake: 500ml rs5 07:30 Drug: NS 0.9% IV 500 ml 500 ml IV at 125 ml/hr once Volume: 500 ml; Route: IV; Rate: rs5 125 ml/hr; Site: right antecubital; 08:05 Follow up: Response: No adverse reaction; IV Status: Completed infusion; IV Intake: rs5 500ml 07:30 Drug: MethylPrednisoLONE IVP 125 mg IVP once Route: IVP; Site: right antecubital; rs5 07:50 Follow up: Response: No adverse reaction rs5 07:30 Drug: predniSONE PO 40 mg PO once Route: PO; rs5 08:15 Follow up: Response: No adverse reaction rs5 07:30 Drug: Levalbuterol Inhalation 3.75 mg Inhalation once Route: Inhalation; rs5 07:45 Follow up: Response: No adverse reaction rs5 07:30 Drug: Ipratropium Inhalation Aerosol 0.5 mg Inhalation once Route: Inhalation; rs5 07:48 Follow up: Response: No adverse reaction rs5 07:30 Drug: LevOfloxacin PO 500 mg PO once Route: PO; rs5 08:33 Follow up: Response: No adverse reaction rs5 Disposition Summary: 11/22/24 10:10 Discharge Ordered Notes: Location: Home rn Problem: chronic rn Symptoms: have improved rn Condition: Stable rn Diagnosis - COPD/ Chronic obstructive pulmonary disease, unspecified rn - Dehydration rn Followup: rn - With: Private Physician - When: As needed - Reason: Recheck today's complaints, Re-evaluation by your physician Discharge Instructions: - Discharge Summary Sheet rn - Chronic Obstructive Pulmonary Disease rn - Dehydration, Adult rn Forms: - Medication Reconciliation Form rn - Antibiotic e learning designer - Prescription Opioid Use rn - Patient Portal Instructions rn - Leadership Thank You Letter rn Signatures: Dispatcher [employer] EDMS Nicolas Tyson MD MD cha Nieto, Roman, MD MD rn Calcote, Vanessa, RN RN vc1 Ezio Tobin RN RN rs5 Corrections: (The following items were deleted from the chart) 06:58 06:58 BASIC METABOLIC PANEL+C.LAB.BRZ ordered. EDMS EDMS 06:58 06:58 CBC+H.LAB.BRZ ordered. EDMS EDMS 06:58 06:58 D-DIMER+COAG.LAB.BRZ ordered. EDMS EDMS 06:58 06:58 HEPATIC FUNCTION+C.LAB.BRZ ordered. EDMS EDMS 06:58 06:58 MAGNESIUM+C.LAB.BRZ ordered. EDMS EDMS 06:58 06:58 PROBNP+C.LAB.BRZ ordered. EDMS EDMS 06:58 06:58 PROTIME (+INR)+COAG.LAB.BRZ ordered. EDMS EDMS 06:58 06:58 Troponin High Sensitivity+C.LAB.BRZ ordered. EDMS EDMS 06:58 06:58 Influenza Screen (A \T\ B)+BA.LAB.BRZ ordered. EDMS EDMS 06:58 06:58 SARS-COV-2 Antigen Rapid+I.LAB.BRZ ordered. EDMS EDMS 06:58 06:58 LIPASE+C.LAB.BRZ ordered. EDMS EDMS 06:58 06:58 Chest Single View+RAD.RAD.BRZ ordered. EDMS EDMS 06:59 06:59 BLOOD CULTURE*+BA.LAB.BRZ ordered. EDMS EDMS 08:20 08:20 Chest For PE Angio+CT.RAD.BRZ ordered. EDMS EDMS
--- NOTE | 2024-11-22 10:11 | ER ---
Nurse's Notes [facility] Name: Carmenza Saldivar Age: 74 yrs Sex: Female : 1950 Arrival Date: 11/22/2024 Time: 06:40 Bed 5 Private MD: Diagnosis: COPD/ Chronic obstructive pulmonary disease, unspecified;Dehydration Presentation: 11/22 06:57 Chief complaint: Patient states: I'm short of breath and my chest hurts. Coronavirus vc1 screen: Client denies travel out of the [place] in the last 14 days. At this time, the client does not indicate any symptoms associated with coronavirus-19. Ebola Screen: Patient negative for fever greater than or equal to 101.5 degrees Fahrenheit, and additional compatible Ebola Virus Disease symptoms Patient denies exposure to infectious person. Patient denies travel to an Ebola-affected area in the 21 days before illness onset. No symptoms or risks identified at this time. Initial Sepsis Screen: Does the patient meet any 2 criteria? No. Patient's initial sepsis screen is negative. Does the patient have a suspected source of infection? No. Patient's initial sepsis screen is negative. Risk Assessment: Do you want to hurt yourself or someone else?. Note Pt uses O2 at home and was hooked up to an empty oxygen tank. Pt was seen last night and doesn't want to go home. Pt states significant other is "a hoarder and I am tired of it.". Onset of symptoms was November 22, 2024. 06:57 Method Of Arrival: Ambulatory vc1 06:57 Acuity: ROBIN 3 vc1 Triage Assessment: 07:00 General: Appears in no apparent distress. comfortable, Behavior is calm, cooperative. rs5 Respiratory: No deficits noted. Respiratory: Onset: The symptoms/episode began/occurred this morning. Historical: - Allergies: 07:02 No Known Allergies; vc1 - PMHx: 07:02 02 dependent 2LNC PRN; chronic back pain; COPD; osteoarthritis; sciatica; scoliosis; vc1 - PSHx: 07:02 hysterectomy; vc1 - Immunization history:: Client reports receiving the 2nd dose of the Covid vaccine, Flu vaccine is up to date. - Infectious Disease History:: Denies. - Family history:: not pertinent. - Social history:: Smoking status: Patient denies any tobacco usage or history of. Screenin:26 [facility] ED Fall Risk Assessment (Adult) History of falling in the last 3 months, iw including since admission Yes- single mechanical fall (1 pt) Confusion or Disorientation No (0 pts) Intoxicated or Sedated No (0 pts) Impaired Gait Yes (1 pt) Mobility Assist Device Used No (0 pt) Altered Elimination No (0 pt) Score/Fall Risk Level 3 or more points = High Risk Oriented to surroundings, Maintained a safe environment. Abuse screen: Denies threats or abuse. Nutritional screening: No deficits noted. Tuberculosis screening: No symptoms or risk factors identified. Assessment: 07:15 General: Appears in no apparent distress. Behavior is calm, cooperative. Pain: iw Complains of pain in buttocks. Neuro: Level of Consciousness is awake, alert, obeys commands, Oriented to person, place, time, situation, Moves all extremities. Cardiovascular: Rhythm is regular. Respiratory: Reports shortness of breath on exertion Airway is patent Respiratory effort is even, unlabored, GI: Abdomen is non-distended. Derm: Skin is fragile, is thin. Musculoskeletal: Range of motion: intact in all extremities. 07:21 Reassessment: pt was placed in lobby after being discharged last night, her O2 iw concentrator needed to be charged and she became SOB and hypoxic, she signed back in to ER for evaluation, she has no ride to get back home. 08:34 Reassessment: Patient and/or family updated on plan of care and expected duration. Pain rs5 level reassessed. Patient is alert, oriented x 3, equal unlabored respirations, skin warm/dry/pink. 09:43 Reassessment: Patient and/or family updated on plan of care and expected duration. Pain rs5 level reassessed. Patient is alert, oriented x 3, equal unlabored respirations, skin warm/dry/pink. : No signs and/or symptoms were reported regarding the genitourinary system. EENT: No signs and/or symptoms were reported regarding the EENT system. 10:15 Reassessment: pt up for discharge, pt states "I am having trouble with my significant rs5 other and right now I don't have a place to stay, I can't go back to his place". 10:18 Reassessment: pt up for discharge, pt provided phone number for friend for picking machine operator helper. rs5 Failed attempt x2 to contact Caren for picking machine operator helper [phone]. 10:34 Reassessment: pt provided phone number for scot Mireles [phone] for transport, rs5 failed attempt to contact grandson x2. 10:40 Reassessment: pt provided sisters name, sister contacted for transport, successful rs5 attempt, ETA 20 min. 11:00 Reassessment: Patient and/or family updated on plan of care and expected duration. Pain rs5 level reassessed. Patient is alert, oriented x 3, equal unlabored respirations, skin warm/dry/pink. Vital Signs: 06:57 BP 143 / 74; Pulse 92; Resp 14; Temp 97.8; Pulse Ox 96% on 3 lpm NC; Weight 55.34 kg; vc1 Height 5 ft. 3 in. ; 07:27 BP 128 / 80; Pulse 87; Resp 19; Pulse Ox 3% on NC; iw 09:06 BP 136 / 76; Pulse 90; Resp 19; Pulse Ox 100% on 3 lpm NC; iw 09:55 BP 125 / 64; Pulse 89; Resp 19; Pulse Ox 99% on 3 lpm NC; iw 10:40 BP 127 / 67; Pulse 74; Resp 17; Pulse Ox 95% on 3 lpm NC; rs5 06:57 Body Mass Index 21.61 (55.34 kg, 160.02 cm) vc1 ED Course: 06:41 Patient arrived in ED. [id number] 06:48 Nicolas Tyson MD is Attending Physician. dov 07:00 Patient has correct armband on for positive identification. Placed in gown. Bed in low rs5 position. Side rails up X 1. Side rails up X2. 07:02 Triage completed. vc1 07:12 Initial lab(s) drawn, by me, sent to lab. First set of blood cultures drawn by me. iw Inserted saline lock: 22 gauge in right antecubital area, using aseptic technique. Blood collected. Flushed with 10 mL NS. 07:15 No provider procedures requiring assistance completed. rs5 07:16 Ezio Tobin, RN is Primary Nurse. rs5 07:25 Arm band placed on. iw 07:26 Attending Physician role handed off by Nicolas Tyson MD rn 07:26 Rey Villa MD is Attending Physician. rn 07:35 XRAY Chest (1 view) In Process Unspecified. EDMS 08:54 CT Chest For PE Angio In Process Unspecified. EDMS 11:00 Provided Education on: discharge instructions . rs5 11:05 IV discontinued, intact, bleeding controlled, No redness/swelling at site. Pressure rs5 dressing applied. Administered Medications: 07:30 Drug: NS 0.9% IV 500 ml 500 ml IV at 1 bolus once; to be given as a bolus over 30 rs5 minutes Volume: 500 ml; Route: IV; Rate: 1 bolus; Site: right antecubital; 08:02 Follow up: Response: No adverse reaction; IV Intake: 500ml rs5 07:30 Drug: NS 0.9% IV 500 ml 500 ml IV at 125 ml/hr once Volume: 500 ml; Route: IV; Rate: rs5 125 ml/hr; Site: right antecubital; 08:05 Follow up: Response: No adverse reaction; IV Status: Completed infusion; IV Intake: rs5 500ml 07:30 Drug: MethylPrednisoLONE IVP 125 mg IVP once Route: IVP; Site: right antecubital; rs5 07:50 Follow up: Response: No adverse reaction rs5 07:30 Drug: predniSONE PO 40 mg PO once Route: PO; rs5 08:15 Follow up: Response: No adverse reaction rs5 07:30 Drug: Levalbuterol Inhalation 3.75 mg Inhalation once Route: Inhalation; rs5 07:45 Follow up: Response: No adverse reaction rs5 07:30 Drug: Ipratropium Inhalation Aerosol 0.5 mg Inhalation once Route: Inhalation; rs5 07:48 Follow up: Response: No adverse reaction rs5 07:30 Drug: LevOfloxacin PO 500 mg PO once Route: PO; rs5 08:33 Follow up: Response: No adverse reaction rs5 Medication: 07:26 VIS not applicable for this client. iw Intake: 08:02 IV: 500ml; Total: 500ml. rs5 08:05 IV: 500ml; Total: 1000ml. rs5 Outcome: 10:10 Discharge ordered by . rn 11:05 Discharged to home via wheelchair, with family, rs5 11:05 Condition: stable rs5 11:05 Discharge instructions given to patient, family, Instructed on discharge instructions, follow up and referral plans. Demonstrated understanding of instructions, follow-up care, 11:07 Patient left the ED. rs5 Signatures: Dispatcher [employer] EDNicolas Valerio MD MD cha Williams, Irene, RN RN Rey Louise MD MD rn Jeffries, Jennifer jj6 Faith Slater RN RN vc1 Ezio Tobin RN RN rs5 Corrections: (The following items were deleted from the chart) 07:24 07:21 Reassessment: pt was placed in lobby after being discharged this morning , her O2 iw ran out and she was SOB , she has no ride to get back home iw 09: 07:27 BP 128 / 80; Pulse 87bpm; Resp 19bpm; Pulse Ox 97% RA; iw iw 09:07 09:06 BP 136 / 76; Pulse 90bpm; Resp 19bpm; Pulse Ox 100% 2 lpm Nasal Cannula; iw iw
[2024-11-22 16:15] VITALS: TEMP 97.8
[2024-11-22 16:21] VITALS: BP 125/64; O2SAT 99
--- NOTE | 2024-11-25 12:50 | EKG ---
Test Date: 2024-11-22 Test Time: 07:37:50 Interactive Graphic Designer: JACQUI MEASUREMENT RESULTS: Intervals: Rate: 82 UT: 132 QRSD: 88 QT: 400 QTc: 467 [place]: P: 87 UT: 132 QRS: 73 T: 60 INTERPRETIVE STATEMENTS: Normal sinus rhythm Normal ECG Compared to ECG 05/17/2024 12:43:20 Supraventricular tachycardia no longer present Electronically Signed On 11-25-24 12:48:26 RX SPECIALIST by Neil Valerio
--- NOTE | 2024-11-25 12:50 | EKG ---
Test Date: 2024-11-22 Test Time: 07:40:58 Sales Assistant Entertainment And Media: JACQUI MEASUREMENT RESULTS: Intervals: Rate: 80 WA: 138 QRSD: 98 QT: 426 QTc: 491 [place]: P: 93 WA: 138 QRS: 85 T: 68 INTERPRETIVE STATEMENTS: Normal sinus rhythm Prolonged QT Abnormal ECG Compared to ECG 05/17/2024 12:43:20 Prolonged QT interval now present Supraventricular tachycardia no longer present Electronically Signed On 11-25-24 12:48:23 GLASS WORKER by Neil Valerio
== END 2024-11-22 11:07 | disposition home or self-care (01) ==
LOC: ER 06:40
DX: J44.1 Chronic obstructive pulmonary disease with (acute) exacerbation (principal); E86.0 Dehydration; Z99.81 Dependence on supplemental oxygen; Z11.52 Encounter for screening for COVID-19
CPT/HCPCS: 96361; 93005 ×2; 87040 ×2; 85025; 80048; 36415; 83735; 85610; 85379; 80076; 84484; 83690; 83880; 87804 ×2; 71275; 71045; 96374; 99285; 87811; Q9967; J7512; J7614; J7644; J2919; J7040